=== PATIENT | male | born 1955 | race Caucasian/White ===

== ENCOUNTER → 2017-10-07 | Outpatient (CLI) | payer OTHER ==
[~2017-10-07] MED LIST: ACET-749 PO; ASPEC81 PO; FLV1 PO; FRC PO; MULT-506 PO; PHNRUNK PO; SIMV80TA2 PO; ZINC1CAP PO
--- NOTE | 2017-10-07 16:18 | DIAGNOSTIC IMAGING REPORT ---
CHEST 2 VIEWS ROUTINE CLINICAL HISTORY: Cough and rhonchi COMPARISON STUDY: No previous studies for comparison. FINDINGS: The cardiac and mediastinal contours are normal. There is no evidence of focal pulmonary consolidation. There is no evidence of failure. No pleural effusions are visualized.[ IMPRESSION: No active disease in the chest. Electronically signed by: Randolph Lui M.D. 10/07/2017 4:17 PM Dictated Date/Time: 10/07/2017 4:17 PM
== END | disposition home or self-care (01) ==
LOC: C.RAD1850 15:58
PROVIDERS: ATTEND Family Medicine
DX: R09.89 Other specified symptoms and signs involving the circulatory and respiratory systems (principal)

== ENCOUNTER 2020-05-28 08:21 | Observation (INO) ==
[2020-05-28] MEDS ORDERED: NiCARDipine HCL INJ 2.5 MG/ML 10 ML AMP ONE (08:50)
[2020-05-28] MEDS ORDERED: fentaNYL citrate 100 MCG/2 ML VIAL ONE ×2 (08:50→10:07)
[2020-05-28] MEDS ORDERED: HEPARIN (PORCINE) 1000 UNIT/ML 10 ML (CATH LAB USE ONLY) ONE ×2 (08:50→10:07)
[2020-05-28] MEDS ORDERED: MIDAZOLAM HCL 1 MG/ML 2ML VIAL ONE ×3 (08:51→10:48)
[2020-05-28] MEDS ORDERED: NITROGLYCERIN/D5W 100MCG/ML 20ML SYR ONE (08:51)
--- NOTE | 2020-05-28 08:57 | Pre Anesthesia Assessment ---
Date of Service May 28, 2020 Pre Sedation Assessment Cardiovascular RRR, no murmur, no edema Respiratory normal respiratory effort, lungs clear to auscultation Pre-Sedation Airway Assessment Smoking Status: Never smoker Hx Sleep Apnea: No Hx Difficult Intubation: No Short, Thick Neck: No Thyromental Distance: > or= 3.5 Finger Breadths Oral Cavity: + WNL Mallampati Class: III ASA: ASA3 Procedure Planning Contraindications for Sedation: none Current Medications Reviewed: Yes Notes The planned sedation has been discussed with the patient. Informed Consent was obtained. I have identified the patient, determined the appropriateness of sedation and have assessed the patient immediately prior to the procedure. All medicine(s) and interventions are by my order.
--- NOTE | 2020-05-28 09:05 | History & Physical Report ---
Date of Service May 28, 2020 Assessment & Plan (1) Chest pain due to CAD: Proceed with cardiac catheterization via right radial artery History of Present Illness Primary Care Provider: Mauri Pinon MD 64 female CAD with prior stents to LAD in 1999, 2000 and 2012, also with stent to RCA 2012. Also with HTN, HLD, GERD. Exercise stress echo 10/2019 - 55-60%, MPHR 94%, METS 13, normal echo response, inferolateral ST depressions. Followed by Dr. Montoya. Progressive exertional fatigue, dyspnea and chest pain limiting exercise. Pain not responsive to CCB, ranexa. Cath recommnended. Allergies Allergy/AdvReac Type Severity Reaction Status Date / Time No Known Drug Allergies Allergy Verified 04/02/20 13:32 Home Medications Home Medications Medication Instructions Recorded Confirmed Type sxtxwlwmnc-[id number] See Rx Instructions PO .COMPLEX 04/07/19 04/02/20 History 50 mg-325 mg-40 mg tablet tab folic acid 800 mcg tablet 1.6 mg PO DAILY tab 04/07/19 04/02/20 History multivitamin 1 tab PO DAILY 04/07/19 04/02/20 History zinc gluconate 50 mg tablet 50 mg PO DAILY tab 04/07/19 04/02/20 History aspirin 81 mg tablet 81 mg PO DAILY tab 05/12/19 04/02/20 History clopidogrel 75 mg tablet 75 mg PO DAILY #90 tab 05/12/19 04/02/20 History pantoprazole 40 mg tablet,delayed 40 mg PO QAM tab 05/12/19 04/02/20 History release rosuvastatin 10 mg tablet 10 mg PO .COMPLEX #15 tab 05/23/19 04/02/20 Rx potassium chloride 1 ea PO DAILY 06/15/19 04/02/20 History nitroglycerin 0.4 mg sublingual 0.4 mg SL .COMPLEX #25 tab 11/25/19 04/02/20 Rx tablet celecoxib 200 mg capsule 200 mg PO DAILY PRN #30 cap 03/05/20 04/02/20 Rx nitroglycerin 0.4 mg sublingual 0.4 mg SL Q5M PRN #25 tab 03/28/20 04/02/20 Rx tablet celecoxib 200 mg capsule 200 mg PO DAILY PRN #30 cap 04/02/20 04/02/20 Rx cyclobenzaprine 5 mg tablet 5 mg PO TID PRN #30 tab 05/14/20 Rx amlodipine 2.5 mg tablet 2.5 mg PO DAILY #90 tab 05/24/20 Rx ranolazine 500 mg tablet,extended 500 mg PO BID #180 tab 05/24/20 Rx release,12 hr Past Med/Surg History Medical History (Updated 05/02/20 @ 10:10 by Kalpesh Bee DO) BPH (benign prostatic hyperplasia) Chronic low back pain Coronary artery disease S/p stent to LAD (1999 and 2000). Last cath (2012) [facility] to RCA. Managed with DAPT + statin. No BB due to low HR and BP. GERD (gastroesophageal reflux disease) History of anesthesia reaction nauseous. HTN (hypertension) Hyperlipidemia Migraine headache Surgical History (Updated 05/02/20 @ 10:14 by Kalpesh Bee DO) H/O cardiac catheterization (~2012) S/P inguinal hernia repair Family History Father Coronary heart disease Heart disease Mother Osteoarthritis Crohn's disease Brother Coronary heart disease Hypertension Uncle Prostate cancer Denies family history of Ovarian cancer Myocardial infarction Breast cancer Lung cancer Colorectal cancer Social History Smoking Status: Never smoker Hx Alcohol Use: Yes Alcohol Intake Frequency Comment: 10? 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 [employer] Feels Safe at Home: Yes Dental Care, Regularly: Yes Physical Activity Frequency: 3-4 Times per Week Review of Systems All systems reviewed & are unremarkable except as noted in HPI & below Physical Exam Constitutional: WD/WN, vitals as above Eyes: PERRL, conjunctivae normal, anicteric sclerae Respiratory: normal respiratory effort, lungs clear to auscultation Cardiovascular: RRR, no murmur, no edema Gastrointestinal (Abdomen): normal bowel sounds, soft, nontender, no hepatosplenomegaly Skin: no rashes, warm and dry Psychiatric: A+Ox3, euthymic affect ASA Classification ASA ASA3
[2020-05-28] MEDS ORDERED: CLOPIDOGREL BISULFATE 300 MG TAB ONE (11:31)
--- NOTE | 2020-05-28 11:59 | Post Anesthesia Assessment ---
Date of Service May 28, 2020 Post Sedation Assessment Vital Signs Temp Pulse Resp BP Pulse Ox 05/28/20 11:55 55 L 20 109/68 96 05/28/20 11:40 52 L 20 133/45 L 97 05/28/20 08:33 98.2 F 61 20 134/95 98 Recovery Score Activity: Moves 4 extremities Respiration: Deep Breath/Cough Circulation: +/-20% PreAnes Value Consciousness: Fully Awake Oxygen Saturation: > 92% On Room Air Post Anesthesia Score: 10 Discharge Sedation Level of Care: Fast Track Phase II Post Sedation Plan On clinical assessment, the patient appears to have tolerated the sedation without complications. Patient is recovering as anticipated. Patient will continue to be monitored by nursing and may be discharged when sedation discharge criteria are met per below protocol. Upon Completions of procedure up to 15 minutes continue every 5 minute vital signs and the P.A.R. score; then discharge to a Phase I or Fast Track to Phase II per the following guidelines: * Discharge Patient to appropriate Phase II area if PAR is 8 or greater or return to pre- procedure baseline. The post - procedure orders will be as directed. * If PAR score is less than 8 or not return to pre-procedure baseline then pat ient will follow Phase I monitoring till PAR is reached for Phase II. The Phase I may be done in procedure room or may call to secure a Phase I area. * If naloxone or flumazenil are used for reversal, hold in Phase I for continued monitoring from when last reversal dose was given for a minimum of 60 minutes or longer pending the nurse and/or physician discretion of patient condition before discharge to Phase II. Please call the Sedation Physician to re-evaluate and complete post-note for discharge to Phase II area. Do NOT discharge from procedure sedation or Phase 1 until post- sedation evaluation note is complete by procedure /sedation MD Sedation Discharge Instructions to be given to the patient at discharge to home.
--- NOTE | 2020-05-28 12:15 | Cardiac Catheterization ---
ACC Data: Traveling Sales Representative Cardiac Status Clinical evaluation leading to the procedure CAD Presenation: Unstable angina Anginal Classification: CCS III Heart Failure: No Cardiogenic Shock within 24 Hours: No Cardiac Arrest within 24 Hours: No Imaging Studies Past 6 Months: Yes Stress Studies Past 6 Months: Yes Stress Echocardiogram: Yes - Indeterminant Diagnostic Physicians Name: Prabhjot Valentino MD Status: Elective Closure Device Percutaneous Entry Location: Radial Closure Device: Radial Band Recommendations: PCI without planned CABG PCI Indication: Unstable Angina Lesion Segment Name: mid RCA Culprit Artery: Yes Stenosis Prior to Rx (%): 95 Chronic Total Occlusion: No IVUS: No FFR: No Pre-Procedure GEORGI Flow: 2 Previously Treated Lesion: No Lesion Complexity: Non-High/Non-C Lesion Length (mm): 15 Thrombus Present: No Bifurcation Lesion: No Guidewire Across Lesion: Stenosis Post-Procedure (%): 0 Post-Procedure GEORGI Flow: 3 Devices(s) Deployed: Yes Yes Lesion #2 Segment Name: Mid LAD Culprit Artery: No Stenosis Prior to Rx (%): 100 Chronic Total Occlusion: Yes IVUS: No Pre-Procedure GEORGI Flow: 0 Previously Treated Lesion: No Lesion Complexity: High/C Lesion Length (mm): 25 Thrombus Present: No Bifurcation Lesion: Yes Guidewire Across Lesion: Yes Stenosis Post-Procedure (%): 0 Post-Procedure GEORGI Flow: 3 Devices(s) Deployed: Yes Intraprocedure Events Significant Disection: No Perforation: No Cardiac Cath Procedure Full Procedure Date May 28, 2020 Pre-Procedure Diagnosis Pre-Procedure Diagnosis: Angina AUC Score AUC Score: 7 Post-Procedure Diagnosis Post-Procedure Diagnosis: Severe CAD, Successful PCI and Normal Intracardiac Pressures Procedure(s) Performed Procedure(s) Performed: Coronary Angiography, Left Heart Cath and Drug Eluting Stent Traffic I Manager Prabhjot Valentino MD Satellite Communications Engineer(s) Genaro Estimated Blood Loss Estimated Blood Loss: 15 Medication(s) Medication(s): Clopidogrel, Fentanyl, Heparin, Lidocaine 1%, Nicardipine, Nitroglycerin and Versed Summary of Findings Indication: Accelerating angina, history of coronary artery disease post multiple stents to LAD, prior stent to RCA Access: 6 Fr slender right radial artery Catheters: Wentworth, JL 3.5, JR4 guide, EBU 3.5 guide Findings: LM -short, almost separate ostium, no significant disease LAD -medium caliber vessel, overlapping stents from proximal to mid LAD patent with 50% in-stent restenosis at takeoff of first septal, 100% chronic total occlusion just after distal aspect of prior stents and small second diagonal. Latemid and distal LAD fill slowly via left to left collaterals. Circumflex -large caliber vessel, 20% proximal, 40-50% mid stenosis after OM 2 extending into large OM 3. Large OM 2, OM 3 without significant disease. RCA -dominant, medium caliber vessel, widely patent earlymid RCA stent,, latemid with 95+% focal stenosis, distal RCA widely patent with GEORGI II flow. LVEDP -15 -- PCI of RCA-- Antithrombotic therapy: Heparin, clopidogrel Procedure: RCA cannulated with JR4 guide Surveillance Dual Rate Officer 50 wire passed across lesion into distal vessel Mid RCA lesion predilated with 2.5 compliant balloon Dilated lesion stented with 2.5 x 18 mm [place] drug-eluting stent Stent post-dilated with 2.75 noncompliant balloon IC vasodilators administered for spasm Post procedure GEORGI 3 flow, stent well expanded with minimal residual stenosis a nd no apparent cardiac complications. PCI of LAD PEST CONTROL WORKER Left main cannulated with EBU 3.5 guide Whisper wire placed into second diagonal With the aid and OTW balloon able to cross chronic total occlusion with pilot safety inspector 50 wire Distal wire intraluminal position confirmed via injection through Corsair catheter With the aid of a telescope support catheter mid LAD occlusion dilated with 2.0 balloon Mid LAD stented with 2.5 x 30 mm earl drug-eluting stent. Stent overlapped distal aspect of prior stent. Stent postdilated with 2.75 NC balloon IC vasodilators administered for spasm Post procedure GEORGI 3 flow, stents well expanded with minimal residual stenosis and no apparent cardiac complications. Arterial Closure: TR band Summary: 1. Severe multi-vessel coronary artery disease -95+% latemid RCA stenosis 50% proximal LAD in-stent restenosis, 100% chronic total occlusion of mid LAD just after prior stents 40 to 50% mid circumflex into OM 3 2. Normal intracardiac filling pressure 3. Successful PCI of mid RCA with single drug-eluting stent (2.5 x 18 mm Earl; postdilated with 2.75 NC). 4. Successful PCI of mid LAD chronic total occlusion with single drug-eluting stent overlapping distal aspect of prior stent (2.5 x 30 mm [place]; postdilated with 2.75 NC). Recommendations: To PCU for continued monitoring Reloaded with clopidogrel 300 mg in Traveling Sales Representative Continue dual-antiplatelet therapy for at least 6 months, likely indefinitely in the setting of multiple overlapping stents Aggressive ASCVD risk factor modification Consult cardiac Rehab Hemodynamics Rest Ao:: 115/71/91 Final Ao: 109/63/81 LV: 130/15 Recommendations Recommendations: PCI without planned CABG Specimens Specimens: None Radiation Exposure (mGy) 5207 Contrast (mls) 150 Fluids (cc crystalloids) Fluids (cc crystalloids): 235 Drains Drains: None Anesthesia Moderate Procedural Complication(s) None Disposition PCU I attest to the content of the Intraoperative Record and any orders documented therein. Any exceptions are noted below. [facility] Card Cath Procedure Codes Cardiac Catheterization Procedure 1: Cardiovascular Cath Procedures: 56927 Coronaries and LHC (+/-LV) Moderate Sedation Procedure 1: Sedation/Anesthesia: 33480 Mod Sedation by the same physician;Init15 Min Child Age 5 & Up Procedure 2: Sedation/Anesthesia: 80702 Mod Sedation by the same physician; Ea [id number] Minutes Stenting Procedure 1: Cardiovascular Stent Procedures: 99693 Perc transluminal revascularization of chronic total occlusion, Procedure 2: Cardiovascular Stent Procedures: 83541 Ea addl branch of a major coronary artery PG Care Time/CCT Total # of Minutes Spent Total Time Spent with Patient: Total time spent is greater than 50% in coordination of care (as documented) at patient's floor/unit and/or counseling patient:
[2020-05-28] MEDS ORDERED: ONDANSETRON INJ 2 MG/ML 2 ML VIAL IV PRN (12:19)
[2020-05-28] MEDS ORDERED: NITROGLYCERIN SL 0.4 MG/TAB TAB SL PRN (12:19)
[2020-05-28] MEDS ORDERED: PNEUMOCOCCAL ADMINISTRATION CHARGE ONE (12:22)
[2020-05-28] MEDS ORDERED: PNEUMOCOCCAL POLYSACCHARIDES 25 MCG/0.5 ML VIAL/SYR IM ONE (12:22)
[2020-05-28] MEDS ORDERED: SODIUM CHLORIDE 0.9% 1000ML 1,000 ML IV SCH (12:30)
[2020-05-28 13:36] LABS: Estimated Average Glucose 108 mg/dl; Hemoglobin A1C 5.4 % (4.5-5.6)
[2020-05-28 13:48] LABS: Chol HDL Ratio 5; Cholesterol 192 mg/dl (0-200); HDL Cholesterol 42 mg/dl; LDL Cholesterol Calculated 134 mg/dl; Triglycerides 78 mg/dl (0-150); VLDL Cholesterol 16 mg/dl
[2020-05-28] MEDS ORDERED: BUTALBITAL/ACETAMIN/CAFFEINE TAB PO PRN (17:05)
[2020-05-29 06:59] LABS: Basophils # (auto) 0.02 K/uL (0-0.2); Basophils % (auto) 0.2 %; Eosinophils # (auto) 0.19 K/uL (0-0.5); Eosinophils % (auto) 2.1 %; Hematocrit (blood only) 41.3 % (42-52); Hemoglobin 14.3 g/dL (14.0-18.0); Immature Granulocytes # (auto) 0.01 K/uL (0.00-0.02); Immature Granulocytes % (auto) 0.1 %; Lymphocytes % (auto) 21.5 %; Mean Corpuscular Hemoglobin 32.7 pg (25-34); Mean Corpuscular Hgb Conc 34.6 g/dL (32-36); Mean Corpuscular Volume 94.5 fL (80-100); Mean Platelet Volume 10.5 fL (7.4-10.4); Monocytes # (auto) 0.94 K/uL (0.11-0.59); Monocytes % (auto) 10.6 %; Neutrophils # (auto) 5.78 K/uL (1.4-6.5); Neutrophils % (auto) 65.5 %; Platelet Count 193 K/uL (130-400); RDW Coefficient of Variation 12.8 % (11.5-14.5); RDW Standard Deviation 44.1 fL (36.4-46.3); Red Blood Count 4.37 M/uL (4.7-6.1); White Blood Count 8.84 K/uL (4.8-10.8)
[2020-05-29 07:34] LABS: BUN Creatinine Ratio 12.7 (10-20); Calcium 8.6 mg/dl (8.5-10.1); Est GFR (African American) 82.1; Est GFR (Non-African American) 70.9; Potassium 4.3 mmol/L (3.5-5.1)
[2020-05-29] MEDS ORDERED: ROSUVASTATIN CALCIUM 10 MG TAB PO SCH (09:00)
[2020-05-29] MEDS ORDERED: FOLIC ACID 400 MCG TAB PO SCH (09:00)
[2020-05-29] MEDS ORDERED: CLOPIDOGREL BISULFATE 75 MG TAB PO SCH (09:00)
[2020-05-29] MEDS ORDERED: MULTIVITAMIN TAB PO SCH (09:00)
[2020-05-29] MEDS ORDERED: ASPIRIN 81 MG ECTAB PO SCH (09:00)
[2020-05-29] MEDS ORDERED: PANTOprazole 40 MG TAB PO SCH (09:00)
--- NOTE | 2020-05-29 11:07 | Discharge Summary ---
Date of Service May 29, 2020 Admission HPI Per Admitting Provider 64 male with CAD with prior stents to LAD in 1999, 2000 and 2012, also with stent to RCA 2012. Other medical problems include HTN, HLD, GERD. Exercise stress echo 10/2019 - 55-60%, MPHR 94%, METS 13, normal echo response, inferolateral ST depressions. Followed by Dr. Montoya. Progressive exertional fatigue, dyspnea and chest pain limiting exercise. Pain not responsive to CCB, ranexa. Cath recommnended. Specialty Data Cardiology Cardiac catheterization/PCI 05/28/2020: 1. Severe multi-vessel coronary artery disease -95+% latemid RCA stenosis 50% proximal LAD in-stent restenosis, 100% chronic total occlusion of mid LAD just after prior stents 40 to 50% mid circumflex into OM 3 2. Normal intracardiac filling pressure 3. Successful PCI of mid RCA with single drug-eluting stent (2.5 x 18 mm Jairon; postdilated with 2.75 NC). 4. Successful PCI of mid LAD chronic total occlusion with single drug-eluting stent overlapping distal aspect of prior stent (2.5 x 30 mm Jairon; postdilated with 2.75 NC). Discharge Data Consultations 05/28/20 12:22 Consult Cardiac Rehabilitation Routine Procedures Performed Operation Date: 05/28/20 09:30 Actual Procedures p Cath, Left with Cors and Vent - Raimundo Valentino MD s Cineradiography w/Routine Exam - Raimundo Valentino MD s Drug Eluting Stent SGl Vessel - Raimundo Valentino MD s Drug Eluting Stent each ADDTL Vessel - Raimundo Valentino MD Hospital Course (1) Coronary artery disease: Patient underwent cardiac catheterization via right radial artery. He was found to have severe multivessel coronary disease including a 95% mid RCA stenosis and a 100% chronic total occlusion of his mid LAD. Underwent PCI to RCA with placement of single drug-eluting stent followed by PCI of mid LAD chronic total occlusion with placement of another drug-eluting stent. Procedures were uncomplicated. Admitted to telemetry for observation post procedure. Had two short runs of nonsustained VT overnight (longest lasting 7 beats). Endorsed no additional chest pain. No apparent access site complications. Post procedure labs stable. LDL notable at 134. Patient discharged home on DAPT with aspirin, clopidogrel. Rosuvastatin increased from 10 mg every other day to 10 mg daily. Further statin titration and consideration of PCSK9 inhibitor per Dr. Montoya. Follow-up with Dr. Montoya scheduled for 06/07/2020. Discharge Instructions Home Medications [id number]-[id number] 50 mg-325 mg-40 mg tablet See Rx Instructions PO .COMPLEX tab 04/07/19 [History Confirmed 05/28/20] folic acid 800 mcg tablet 1.6 mg PO DAILY tab 04/07/19 [History Confirmed 05/28/20] multivitamin 1 tab PO DAILY 04/07/19 [History Confirmed 05/28/20] zinc gluconate 50 mg tablet 50 mg PO DAILY tab 04/07/19 [History Confirmed 05/28/20] aspirin 81 mg tablet 81 mg PO DAILY tab 05/12/19 [History Confirmed 05/28/20] clopidogrel 75 mg tablet 75 mg PO DAILY #90 tab 05/12/19 [History Confirmed 05/28/20] pantoprazole 40 mg tablet,delayed release 40 mg PO QAM tab 05/12/19 [History Confirmed 05/28/20] potassium chloride 1 ea PO DAILY 06/15/19 [History Confirmed 05/28/20] celecoxib 200 mg capsule 200 mg PO DAILY PRN #30 cap 03/05/20 [Rx Confirmed 05/28/20] nitroglycerin 0.4 mg sublingual tablet 0.4 mg SL Q5M PRN #25 tab 03/28/20 [Rx Confirmed 05/28/20] rosuvastatin 10 mg PO DAILY #30 tab 05/29/20 [Rx Confirmed 05/28/20] Coding Level of Care Code 00792 OBS Care - Discharge Diagnoses Coronary artery disease I25.10
--- NOTE | 2020-05-29 21:47 | Electrocardiogram Report ---
Test Reason : Blood Pressure : / mmHG Vent. Rate : 056 BPM Atrial Rate : 056 BPM P-R Int : 188 ms QRS Dur : 094 ms QT Int : 426 ms P-R-T Axes : 055 058 174 degrees QTc Int : 411 ms Poor data quality, interpretation may be adversely affected Sinus bradycardia Abnormal ECG No previous ECGs available Confirmed by Hong Vasquez ([id number]) on 05/29/2020 9:47:48 PM Referred By: Raimundo Valentino Confirmed By:Hong Vasquez
== END 2020-05-29 08:58 | disposition home or self-care (01) ==
LOC: 2S 08:21 → CC 08:21

== ENCOUNTER 2025-05-05 23:11 | Inpatient (IN) ==
[2025-05-05] MEDS: SODIUM CHLORIDE 0.9% 500 ML IV STA (23:33)
[2025-05-05] MEDS: OPTIRAY 320 125ml IV ONE (23:41)
[2025-05-05 23:46] LABS: Hematocrit (blood only) 46.5 % (42.0-52.0); Hemoglobin 16.0 g/dl (14.0-18.0); Immature Granulocytes # (auto) 0.01 K/uL (0.01-0.20); Immature Granulocytes % (auto) 0.1 %; Mean Corpuscular Hemoglobin 32.4 pg (25.0-34.0); Mean Corpuscular Volume 94.1 fL (80.0-100.0); Platelet Count 214 K/uL (130-400); RDW Standard Deviation 42.4 fL (36.4-46.3); Red Blood Count 4.94 M/uL (4.70-6.10); White Blood Count 6.99 K/ul (4.8-10.8)
--- NOTE | 2025-05-06 00:12 | Emergency Department Note ---
History of Present Illness General Chief complaint: Chest Pain Stated complaint: CHEST PAIN, SOB, ARRHYTHMIA Time Seen by Provider: 05/05/25 23:18 History of Present Illness This 69-year-old male with a history of coronary artery disease and hypertension presents the ER complaining of sudden onset of shortness of breath. Patient states he was walking up the steps to get a bed and suddenly felt short of breath. No history of heart failure, A-fib or COPD. Patient states he feels some mild burning in his chest but nothing major. Patient follows with Dr. Valentino and Dr. Montoya. Home Medications Medication Instructions Recorded Confirmed Type aspirin 81 mg tablet 81 mg PO QAM 05/12/19 05/06/25 History nitroglycerin 0.4 mg sublingual 0.4 mg sublingual Q5M PRN chest 03/28/20 05/06/25 Rx tablet pain #25 tabs acetaminophen 500 mg capsule 500 mg PO QID PRN Pain 09/17/21 05/06/25 History clopidogrel 75 mg tablet 75 mg PO QAM 09/17/21 05/06/25 History mecobalamin (vitamin B12) 1,000 1,000 mcg PO DAILY 10/07/22 05/06/25 History mcg chewable tablet alirocumab 75 mg/mL subcutaneous 150 mg subcut Q14D 03/14/24 05/06/25 History pen injector (Praluent Pen) pantoprazole 40 mg tablet,delayed 40 mg PO BID #60 tabs 04/12/24 05/06/25 Rx release methocarbamol 500 mg tablet 500 mg PO TID PRN muscle spasm 04/25/25 05/06/25 Rx #270 tabs kkpihbqtsd-rkblopwllmgdt-ryotduez 1 - 2 tab PO Q4H PRN HEADACHES 05/06/25 05/06/25 History 50 mg-325 mg-40 mg tablet Allergies Allergy/AdvReac Type Severity Reaction Status Date / Time atorvastatin [From Lipitor] AdvReac Intermediate Cramping Verified 05/06/25 00:01 of the Muscles pravastatin AdvReac Intermediate Cramping Verified 05/06/25 00:01 of the Muscles simvastatin [From Zocor] AdvReac Intermediate Cramping Verified 05/06/25 00:01 of the Muscles Jyshotm-JNX-PgU Reductase AdvReac Intermediate Cramping Verified 05/06/25 00:01 Inhibitor of the Muscles Past Med/Surg History Problem List (Updated 05/06/25 @ 00:17 by Julianna Rowe PA-C) Atrial fibrillation with rapid ventricular response (Acute) New onset atrial fibrillation (Acute) HTN (hypertension) h/o - no longer treated for Coronary artery disease (Chronic) S/p stent to LAD (1999 and 2000). Last cath (2012) ADAMS to RCA. Managed with DAPT + statin. No BB due to low HR and BP. Presence of drug-eluting stent in right coronary artery Status post insertion of drug-eluting stent into left anterior descending (LAD) artery Antiplatelet or antithrombotic long-term use Hyperlipidemia (Chronic) Statin myopathy Lumbar facet arthropathy Trochanteric bursitis of both hips Elevated glucose Degenerative disc disease, lumbar GERD (gastroesophageal reflux disease) (Chronic) BPH (benign prostatic hyperplasia) Migraine headache Medical History Statin intolerance Trochanteric bursitis of both hips Lumbar facet arthropathy HTN (hypertension) BPH (benign prostatic hyperplasia) DJD (degenerative joint disease), cervical DJD (degenerative joint disease), lumbar Hx of migraines GERD (gastroesophageal reflux disease) Osteoarthritis Chronic neck pain PONV (postoperative nausea and vomiting) CAD (coronary artery disease) Chronic low back pain Surgical History Hx of vasectomy History of esophagogastroduodenoscopy (EGD) History of colonoscopy H/O heart artery stent H/O cardiac catheterization (~2012) S/P inguinal hernia repair Family History Father Coronary heart disease Heart disease Mother Osteoarthritis Crohn's disease Brother Coronary heart disease Hypertension Diabetes Uncle Prostate cancer Brother Heart disease Myocardial infarction Denies family history of Ovarian cancer Breast cancer Lung cancer Colorectal cancer Social History Smoking Status: Never smoker Second Hand Exposure: No; Do You Dip or Chew Tobacco: No; Hx Alcohol Use: Yes Alcohol type: wine Alcohol Intake Frequency: 2-3 x/Week Hx Substance Use: No Preferred Language: Luxembourgish Communication Ability: Effective Visual Impairment: Diminished Hearing Ability: Normal 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: No marital status: Current Living Situation: Spouse 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 occupational 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 Feels Safe at Home: Yes Childhood Exposure to Second-Hand Smoke: Yes Diet: regular caffeine: No Dental Care, Regularly: Yes Physical Activity Frequency: 3-4 Times per Week Physical Activity Frequency Comment: weights and arobic Seatbelt Use: always Sunscreen Use: Yes Assistive Devices: None Review of Systems A total of 10 systems reviewed and were otherwise negative Physical Exam Vital Signs Vital Signs - 24 hr 05/05/25 23:13 05/05/25 23:25 05/05/25 23:38 Temperature 36.9 C Temperature Source Temporal Artery Scan Pulse Rate 92 H 125 H 79 Pulse Rate [Right Finger] Pulse Rhythm Irregular Respiratory Rate 19 Respiratory Effort / Characteristics Non-Labored Spontaneous Respiratory Depth Normal Blood Pressure 142/82 H Blood Pressure [Right Arm] Blood Pressure Mean 102 Blood Pressure Mean [Right Arm] Pulse Oximetry 97 97 Oxygen Delivery Method Room Air Room Air Sepsis Recent Fever Within 48 Hours No Sepsis New/Unexplained Change in Mental Status N/A Sepsis Action Taken by Nursing No Action Required 05/05/25 23:38 05/05/25 23:46 05/06/25 00:16 Temperature Temperature Source Pulse Rate 71 95 H Pulse Rate [Right Finger] 82 Pulse Rhythm Respiratory Rate 19 20 22 Respiratory Effort / Characteristics Respiratory Depth Blood Pressure 124/81 127/91 Blood Pressure [Right Arm] 104/75 Blood Pressure Mean 108 112 Blood Pressure Mean [Right Arm] 84 Pulse Oximetry 97 97 96 Oxygen Delivery Method Room Air Room Air Room Air Sepsis Recent Fever Within 48 Hours Sepsis New/Unexplained Change in Mental Status Sepsis Action Taken by Nursing VITALS: Vitals are noted on the nurse's note and reviewed by myself. Vital signs tachycardic. GENERAL: Pleasant gentleman, in no acute distress, nondiaphoretic, well- developed well-nourished. SKIN: Capillary reflex less than 2 seconds. HEENT: Normocephalic. PERRLA. EOMI. Nares patent. Mucous membranes moist. Neck is supple without nuchal rigidity. HEART: Tachycardic irregularly irregular LUNGS: Clear to auscultation bilaterally without wheezes, rales or rhonchi. No retractions or accessory muscle use. ABDOMEN: Positive bowel sounds x 4. Normal tympanic percussion. Soft, nontender, without masses or organomegaly. Monsalve sign negative. No guarding or rebound tenderness. no CVA tenderness MUSCULOSKELETAL: No gross musculoskeletal defects. NEURO: Patient was alert and oriented to person place and time. No focal neurological deficits. Course Administered Medications Discontinued Medications Diltiazem HCl (Diltiazem Hcl 5 Mg/Ml 5 Ml Vial) Confirm Administered Dose 25 mg IV .STK-MED ONE Stop: 05/05/25 23:23 Last Admin: 05/05/25 23:33 Dose: Not Given Documented By: CLAUDIA Diltiazem HCl (Diltiazem Hcl 5 Mg/Ml 5 Ml Vial) 10 mg IV NOW STA Stop: 05/05/25 23:23 Last Admin: 05/05/25 23:33 Dose: 10 mg Documented By: CLAUDIA Co-signed By: YOCASTA Sodium Chloride (Nss) 500 mls @ 999 mls/hr IV .Q31M STA Stop: 05/05/25 23:52 Last Infusion: 05/06/25 00:04 Dose: Infused Documented By: Admin: 05/05/25 23:33 Dose: 999 mls/hr Documented By: CLAUDIA Ioversol (Optiray 320 125ml) 120 ml IV ONCE ONE Stop: 05/05/25 23:41 Last Admin: 05/05/25 23:41 Dose: 120 ml Documented By: SILVIA Critical Care Time Critical Care Time: Yes Total Critical Care Time: 35 I have personally spent 35 minutes of critical care time in the direct management of this patient. This includes bedside care, interpretation of diagnostic studies, and testing, discussion with consultants, patient, and family members, and other required patient management activities. This 35 minutes is in excess of all separately billable procedures. Medical Decision Making Medical Records Attestation: I reviewed the patient's medical records. Home Medications Current Medication List: was personally reviewed by ok Laboratory Data Attestation: I reviewed the patient's lab results. 05/05/25 23:20 05/05/25 23:20 Lab Results 05/05/25 05/05/25 05/05/25 Range/Units 23:20 23:20 23:32 WBC 6.99 (4.8-10.8) K/ul RBC 4.94 (4.70-6.10) M/uL Hgb 16.0 (14.0-18.0) g/dl POC Hgb 16.3 (14.0-18.0) g/dl Hct 46.5 (42.0-52.0) % POC Hct 48 (42-52) % MCV 94.1 (80.0-100.0) fL MCH 32.4 (25.0-34.0) pg MCHC 34.4 (32.0-36.0) g/dL RDW Std Deviation 42.4 (36.4-46.3) fL RDW Coeff of Elidia 12.2 (11.5-14.5) % Plt Count 214 (130-400) K/uL MPV 10.3 (9.4-12.4) fL Immature Gran % (Auto) 0.1 % Neut % (Auto) 40.6 % Lymph % (Auto) 42.9 % [place] % (Auto) 11.4 % Eos % (Auto) 4.0 % Baso % (Auto) 1.0 % Neut # (Auto) 2.83 (1.40-6.50) K/uL Lymph # (Auto) 3.00 (1.20-3.40) K/uL [place] # (Auto) 0.80 H (0.11-0.59) K/uL Eos # (Auto) 0.28 (0.00-0.50) K/uL Baso # (Auto) 0.07 (0.00-0.20) K/uL Immature Gran # (Auto) 0.01 (0.01-0.20) K/uL PT 10.6 (9.0-12.0) Seconds INR 1.0 (0.9-1.1) APTT 27 (21-31) Seconds PTT Ratio 1.0 POC Sodium 138 (135-144) mmol/L Sodium 136 (136-145) mmol/L POC Potassium 4.5 (3.3-5.0) mmol/L Potassium 4.4 (3.5-5.1) mmol/L POC Chloride 102 (101-112) mmol/L Chloride 103 (98-107) mmol/L Carbon Dioxide 26 (21-32) mmol/L POC Total CO2 24 (24-31) mmol/L Anion Gap 7 (3-11) POC Anion Gap 17.0 (16-25) mmol/L POC BUN 17 (7-18) mg/dl BUN 16 (6-23) mg/dl Creatinine 1.09 (0.6-1.4) mg/dl POC Creatinine 1.2 (0.6-1.3) mg/dl Est Cr Clr Drug Dosing 62.1 ml/min eGFR 73.01 BUN/Creatinine Ratio 14.7 (10-20) Glucose 116 H (70-99(Fasting)) mg/dl POC Glucose (other) 120 H (70-99) mg/dl Calcium 9.6 (8.6-10.3) mg/dl POC Ioniz Calcium Gavin 1.20 (1.12-1.32) mmol/l Magnesium 1.8 (1.7-2.4) mg/dl Total Bilirubin 0.5 (0.2-1.0) mg/dl AST 21 (13-39) U/L ALT 18 (7-52) U/L Alkaline Phosphatase 55 (34-104) U/L Troponin I High Sens 28.7 H Cancelled (0-20) pg/ml B-Natriuretic Peptide 461 H (0-100) pg/ml Total Protein 7.6 (6.0-8.3) gm/dl Albumin 4.1 (3.4-5.0) gm/dl Globulin 3.5 (2.5-4.0) gm/dl Albumin/Globulin Ratio 1.2 (0.9-2) Lipase 19 (11-82) U/L TSH 4.976 H (0.300-4.500) uIu/ml Imaging Data Attestation: I personally reviewed and interpreted this imaging study as follows: Radiologist's Impression: Chest X-Ray 05/05/25 23:16 Exam(s): XR CXR 1 VIEW EXAM: XR Chest, 1 View CLINICAL HISTORY: Chest Pain, nonspecific. TECHNIQUE: Frontal view of the chest. COMPARISON: No relevant prior studies available. FINDINGS: Lungs: Unremarkable. No consolidation. Pleural space: Unremarkable. No pneumothorax. Heart: Cardiomegaly. Mediastinum: Unremarkable. Normal mediastinal contour. Bones/joints: There are degenerative changes of the spine. No acute fracture. IMPRESSION: Cardiomegaly. Electronically signed by: Rosaline Sinha MD 05/06/25 01:11 AM Chest CTA 05/05/25 23:22 EXAM: CT angio chest PE protocol CLINICAL HISTORY: Chest Pain, eval for PE TECHNIQUE: Contiguous axial images were obtained from the neck base through the upper abdomen following intravenous administration of iodinated contrast material. Angiographic images were processed, 3D MIP images were acquired for interpretation. If IV contrast material had not been administered, the likelihood of detecting abnormalities relevant to the patient's condition would have been substantially decreased. Coronal and sagittal 3-D MIPs were likewise performed and indicated to increase the sensitivity of detectin diffuse clinically relevant pathology. CT scan was performed according to ALARA (as low as reasonable achievable). COMPARISON: None. FINDINGS: Diffuse ground-glass hase are noted involving dependent portion of both lower lobes - suggest possibility of due to insufficient inspiration. Adequate contrast bolus without evidence of pulmonary embolism. The central airways are patent. The lungs are clear. No pleural effusion. The heart, aorta, and pulmonary arteries are of normal size and configuration. There are coronary artery and aortic atherosclerotic calcifications. No pericardial effusion is identified. The thyroid is unremarkable. No mediastinal, hilar, or axillary lymphadenopathy is noted. No suspicious lytic or sclerotic osseous lesions are identified. IMPRESSION: No evidence of pulmonary embolism . Diffuse ground-glass hase are noted involving dependent portion of both lower lobes Electronically signed by Alfonzo Fonseca 05-06-2025 12:52 AM MDM Narrative prior records/ancillary studies reviewed. Triage Nursing notes reviewed. Additional history obtained from the family. The patient's history was concerning for respiratory difficulties. Differential diagnosis: Etiologies such as infections, reactive airway disease, pneumonia, pneumothorax, COPD, CHF, cardiac ischemia, pulmonary embolism, musculoskeletal, gastrointestinal, as well as others were entertained. Physical examination: As above. ER treatment provided: An order was placed for continuous cardiac monitoring. The monitor shows a rate of 60-1 50 with a A-fib rhythm per my interpretation. Cardizem, IV fluids On reassessment the patient felt better. Diagnostic interpretation by me: The electrocardiogram was ordered for SOB. ECG: Irregularly irregular with ST depression in the inferior and lateral leads, rate of 117. Impression A-fib RVR with ST depression independently interpreted by myself. Per chart review the ST depression is similar to prior EKG ordered for lower heart rate EKG: Irregularly irregular with less ST depression in the inferior lateral leads, rate of 92. Impression A-fib with persistent ST depression unchanged from prior independently interpreted by myself The labs Independently Interpreted by myself revealed mildly elevated troponin repeat was ordered Elevated BNP No worrisome leukocytosis, stable H&H Imaging studies: Imaging was reviewed and read by radiology CHADS2 Score Sex (male 0, female 1): 0 Congestive HF (1): 0 Hypertension (1) :1 Age :1 Diabetes mellitus (1):0 Stroke/TIA/TE (2): 0 Score: 3 HEART SCORE: Hx: high/mod/low suspicion: 1 ECG: ST depression/nonspecific changes/normal: 1 Age: Greater than 65/45-64/less than 45: 2 Risk factors: (Hypertension, hyperlipidemia, diabetes, coronary disease, tobacco use, cocaine use): 2 Troponin: Greater than 2 times normal limits/1-2 times normal limits/normal: 1 Total: 7 Consultation: A consultation was placed with the hospitalist. The case was discussed and diagnostics were reviewed. The patient was evaluated in the ER for further treatment. This appears to be consistent with New onset A-fib. Patient started on heparin. His CHADS2 score was 3. Troponin was mildly elevated and repeat was ordered. He was feeling much better once his heart rate lowered down with the Cardizem. Medicine was consulted and case was discussed. Patient is agreeable to treatment plan of admission. By the evaluation outlined above emergent etiologies such as pulmonary embolism, reactive airway disease, pneumonia, pneumothorax, musculoskeletal, serious bacterial infections, as well as others were deemed relatively unlikely. The pt informed about the findings as listed above. All questions were answered and pleased with the treatment. The chart was completed utilizing [employer] Speech voice recognition software. Grammatical errors, random word insertions, pronoun errors, and incomplete sentences are an occassional consequence of this system due to software limitations, ambient noise, and hardware issues. Any formal questions or concerns about the content, text, or information contained within the body of this dictation should be directly addressed to the physician assistant project manager for clarification. Impression & Plan New onset atrial fibrillation, Atrial fibrillation with rapid ventricular response Discharge Plan Visit Data Chief Complaint: Chest Pain Stated Complaint: CHEST PAIN, SOB, ARRHYTHMIA ED Provider: Adebayo Duran ED Midlevel Provider: Julianna Rowe Discharge Problem: New onset atrial fibrillation, Atrial fibrillation with rapid ventricular response Patient Disposition: Admitted As Inpatient Condition: Good Forms Stand Alone Forms: CNS Response Prescriptions Prescriptions: No Action pantoprazole 40 mg tablet,delayed release (DR/EC) 40 mg PO BID Qty: 60 11RF mecobalamin (vitamin B12) 1,000 mcg tablet,chewable 1,000 mcg PO DAILY aspirin 81 mg tablet 81 mg PO QAM nitroglycerin 0.4 mg tablet, sublingual 0.4 mg SL Q5M PRN (Reason: chest pain) Qty: 25 1RF Rx Instructions: until response; do not exceed 3 doses per episode methocarbamol 500 mg tablet 500 mg PO TID PRN (Reason: muscle spasm) Qty: 270 1RF acetaminophen 500 mg Capsule 500 mg PO QID PRN (Reason: Pain) clopidogrel 75 mg tablet 75 mg PO QAM axnejsmcgt-rkvfmrvndcinr-abco 50-325-40 mg tablet 1 - 2 tab PO Q4H MDD 6 TABS/24 HOURS PRN (Reason: HEADACHES) Praluent Pen 75 mg/mL pen injector 150 mg subcut Q14D Referrals Referrals: Kalpesh Bee DO [Primary Care Provider] -
[2025-05-06 00:17] LABS: Alanine Aminotransferase 18.0 U/L (7-52); Albumin Globulin Ratio 1.2 (0.9-2); Alkaline Phosphatase 55.0 U/L (34-104); Anion Gap 7.0 (3-11); Bilirubin,Total 0.5 mg/dl (0.2-1.0); Blood Urea Nitrogen 16.0 mg/dl (6-23); Calcium 9.6 mg/dl (8.6-10.3); Carbon Dioxide 26.0 mmol/L (21-32); Chloride 103.0 mmol/L (98-107); Creatinine Clr Calc Pharmacy 62.1 ml/min; Globulin 3.5 gm/dl (2.5-4.0); Glucose 116.0 mg/dl (70-99(Fasting)); Lipase 19.0 U/L (11-82); Magnesium 1.8 mg/dl (1.7-2.4); Potassium 4.4 mmol/L (3.5-5.1); Sodium 136.0 mmol/L (136-145); Total Protein 7.6 gm/dl (6.0-8.3)
[2025-05-06 00:21] LABS: INR 1.0 (0.9-1.1); Partial Thromboplastin Time 27 Seconds (21-31); Prothrombin Time 10.6 Seconds (9.0-12.0)
[2025-05-06 00:26] LABS: Thyroid Stimulating Hormone 4.976 uIu/ml (0.300-4.500)
--- NOTE | 2025-05-06 00:52 | CT Scan Report ---
EXAM: CT angio chest PE protocol CLINICAL HISTORY: Chest Pain, eval for PE TECHNIQUE: Contiguous axial images were obtained from the neck base through the upper abdomen following intravenous administration of iodinated contrast material. Angiographic images were processed, 3D MIP images were acquired for interpretation. If IV contrast material had not been administered, the likelihood of detecting abnormalities relevant to the patient's condition would have been substantially decreased. Coronal and sagittal 3-D MIPs were likewise performed and indicated to increase the sensitivity of detectin diffuse clinically relevant pathology. CT scan was performed according to ALARA (as low as reasonable achievable). COMPARISON: None. FINDINGS: Diffuse ground-glass hase are noted involving dependent portion of both lower lobes - suggest possibility of due to insufficient inspiration. Adequate contrast bolus without evidence of pulmonary embolism. The central airways are patent. The lungs are clear. No pleural effusion. The heart, aorta, and pulmonary arteries are of normal size and configuration. There are coronary artery and aortic atherosclerotic calcifications. No pericardial effusion is identified. The thyroid is unremarkable. No mediastinal, hilar, or axillary lymphadenopathy is noted. No suspicious lytic or sclerotic osseous lesions are identified. IMPRESSION: No evidence of pulmonary embolism . Diffuse ground-glass hase are noted involving dependent portion of both lower lobes Electronically signed by Alfonzo Fonseca 05-06-2025 12:52 AM
--- NOTE | 2025-05-06 00:54 | Emergency Department Note ---
ED Visit Note I was consulted by the Advanced Practice Provider. I personally made/approved the management plan and take responsibility for the patient management. This includes the aspects of: -History/Physical -MDM
--- NOTE | 2025-05-06 01:12 | XRay Report ---
Exam(s): XR CXR 1 VIEW EXAM: XR Chest, 1 View CLINICAL HISTORY: Chest Pain, nonspecific. TECHNIQUE: Frontal view of the chest. COMPARISON: No relevant prior studies available. FINDINGS: Lungs: Unremarkable. No consolidation. Pleural space: Unremarkable. No pneumothorax. Heart: Cardiomegaly. Mediastinum: Unremarkable. Normal mediastinal contour. Bones/joints: There are degenerative changes of the spine. No acute fracture. IMPRESSION: Cardiomegaly. Electronically signed by: Rosaline Sinha MD 05/06/25 01:11 AM
[2025-05-06] MEDS: HEPARIN 25000 UNIT/500 ML D5W 25,000 UNITS/500 ML BAG IV SCH (01:47)
[2025-05-06] MEDS: HEPARIN SOD (PORCINE) 1000 UNIT/ML IV ONE (01:48)
[2025-05-06] MEDS: Heparin IV Adult Wt-Based Standard w/ INITIAL Bolus Protocol IV STA (01:50)
--- NOTE | 2025-05-06 02:02 | History & Physical Report ---
Date of Service May 06, 2025 Assessment & Plan (1) Atrial fibrillation with rapid ventricular response: (2) Coronary artery disease: (3) Presence of drug-eluting stent in right coronary artery: (4) Status post insertion of drug-eluting stent into left anterior descending (LAD) artery: (5) Hyperlipidemia: (6) Statin myopathy: Plan Patient is a 69-year-old male with past medical history of CAD (stent to LAD in 1999, 2000: repeat cath in 2012 with stent placement to RCA), hypertension, hyperlipidemia, statin intolerance, DDD, GERD, BPH, migraine, and osteoarthritis who was admitted for management of new onset a-fin w/ RVR. New onset a-fib w/ RVR Patient with palpitations and shortness of breath when climbing stairs likely related to A-fib with rates in the 120s at the time EKG done in the ED showing A-fib with RVR with rates of 112 Heart rate improved to 80slow 100s after single dose of Cardizem 10 mg IV, however, rates increased to [id number] when walking to the restroom, and does feel little winded at these times; no chest pain Troponin of ~28 with 2-hour repeat showing level of ~36; trend to peak TSH of 4.976, and Free T4 of 0.74; new dx unlikely to be related to thyroid disorder History of snoring and witnessed apneic episodes during sleep increase suspicion that patient may have underlying HANSEL, and in turn this may have led to this new diagnosis of A-fib; could consider sleep study after discharge Will admit patient to med/telemetry Will place order for metoprolol tartrate 25 mg twice daily to start tomorrow morning Patient currently on a heparin drip, although could consider changing to oral anticoagulant prior to discharge Will order TTE K+ goal of > 4, Mg goal of > 2 (magnesium replacement ordered) CAD On DAPT after most recent cath on 06/09/24 was done 2/2/ c/o episodes of chest discomfort lasting 20-30 minutes, and showed moderate non-obstructive CAD If changed to oral anticoagulant at time of discharge, could consider single antiplatelet therapy with oral anticoagulant to decrease risk of bleeding Will continue Clopidogrel; ASA held while on heparin gtt HTN Blood pressure of 127/70 at time of admission Not on any home medications HH diet HLD History of statin intolerance (statin myopathy) Will hold home Praluent while admitted Dispo: Med/Tele Diet: HH VTE ppx: Heparin gtt; can transition to PO anticoagulation prior to discharge Code Status: FULL History of Present Illness Chief Complaint: Shortness of Breath Primary Care Provider: Kalpesh Bee DO Patient is a 69-year-old male with past medical history of CAD (stent to LAD in 1999, 2000: repeat cath in 2012 with stent placement to RCA), hypertension, hyperlipidemia, statin intolerance, DDD, GERD, BPH, migraine, and osteoarthritis who came to the emergency department after experiencing sudden onset shortness of breath when he was walking upstairs. Patient was in his usual state of health earlier this morning and was able to run up 2 flights of stairs without feeling winded or having any symptoms. Then later in the day, he was having a few glasses of wine with his dinner and started to feel "strange" and was going up the stairs of his fall when he started feeling dyspneic and was experiencing palpitations. Denies having any chest pain, diaphoresis, weakness, lightheadedness, dizziness, or any other associated symptom at the time. His daughter, who is an ED nurse, noted his symptoms and checked his Apple Watch, which indicated that he was in A-fib with heart rate in the 120s. Patient has not had a similar experience in the past. He is very active. Of note, patient's states that he does snore and has episodes when is sleeping where he stops breathing and after a few seconds suddenly starts breathing again. He does not have a formal diagnosis of HANSEL and has not had a sleep study done in the past. ED Course: Given NSS 500mL bolus, given Cardizem 10mg IV x1, started on Heparin gtt Labs/Imaging: CBC without leukocytosis, hemoglobin of 16, platelets of 214. CMP without significant electrolyte abnormalities, potassium of 4.4, renal markers were in the grams range. Magnesium of 1.8. TSH of 4.976. Troponin of 28.7 seen with 2-hour repeat showing level of 36.9, BNP of 461. Chest x-ray without acute changes and chest CTA was negative for PE. Medical History: [Reviewed] Medications: [Reviewed] Surgical History: [Reviewed] Family history: [Reviewed] Allergies: [Reviewed] Social History: [Reviewed] Code Status: FULL Allergies Allergy/AdvReac Type Severity Reaction Status Date / Time atorvastatin [From Lipitor] AdvReac Intermediate Cramping Verified 05/06/25 00:01 of the Muscles pravastatin AdvReac Intermediate Cramping Verified 05/06/25 00:01 of the Muscles simvastatin [From Zocor] AdvReac Intermediate Cramping Verified 05/06/25 00:01 of the Muscles Milylxm-[id number]-RsI Reductase AdvReac Intermediate Cramping Verified 05/06/25 00:01 Inhibitor of the Muscles Home Medications Medication Instructions Recorded Confirmed Type aspirin 81 mg tablet 81 mg PO QAM 05/12/19 05/06/25 History nitroglycerin 0.4 mg sublingual 0.4 mg sublingual Q5M PRN chest 03/28/20 05/06/25 Rx tablet pain #25 tabs acetaminophen 500 mg capsule 500 mg PO QID PRN Pain 09/17/21 05/06/25 History clopidogrel 75 mg tablet 75 mg PO QAM 09/17/21 05/06/25 History mecobalamin (vitamin B12) 1,000 1,000 mcg PO DAILY 10/07/22 05/06/25 History mcg chewable tablet alirocumab 75 mg/mL subcutaneous 150 mg subcut Q14D 03/14/24 05/06/25 History pen injector (Praluent Pen) pantoprazole 40 mg tablet,delayed 40 mg PO BID #60 tabs 04/12/24 05/06/25 Rx release methocarbamol 500 mg tablet 500 mg PO TID PRN muscle spasm 04/25/25 05/06/25 Rx #270 tabs yqvzsrjepj-cwelpgbvvtypr-lmcizrvv 1 - 2 tab PO Q4H PRN HEADACHES 05/06/25 05/06/25 History 50 mg-325 mg-40 mg tablet Past Med/Surg History Problem List (Updated 05/06/25 @ 00:17 by Julianna Rowe PA-C) Atrial fibrillation with rapid ventricular response (Acute) New onset atrial fibrillation (Acute) HTN (hypertension) h/o - no longer treated for Coronary artery disease (Chronic) S/p stent to LAD (1999 and 2000). Last cath (2012) ADAMS to RCA. Managed with DAPT + statin. No BB due to low HR and BP. Presence of drug-eluting stent in right coronary artery Status post insertion of drug-eluting stent into left anterior descending (LAD) artery Antiplatelet or antithrombotic long-term use Hyperlipidemia (Chronic) Statin myopathy Lumbar facet arthropathy Trochanteric bursitis of both hips Elevated glucose Degenerative disc disease, lumbar GERD (gastroesophageal reflux disease) (Chronic) BPH (benign prostatic hyperplasia) Migraine headache Medical History Statin intolerance Trochanteric bursitis of both hips Lumbar facet arthropathy HTN (hypertension) BPH (benign prostatic hyperplasia) DJD (degenerative joint disease), cervical DJD (degenerative joint disease), lumbar Hx of migraines GERD (gastroesophageal reflux disease) Osteoarthritis Chronic neck pain PONV (postoperative nausea and vomiting) CAD (coronary artery disease) Chronic low back pain Surgical History Hx of vasectomy History of esophagogastroduodenoscopy (EGD) History of colonoscopy H/O heart artery stent H/O cardiac catheterization (~2012) S/P inguinal hernia repair Family History Father Coronary heart disease Heart disease Mother Osteoarthritis Crohn's disease Brother Coronary heart disease Hypertension Diabetes Uncle Prostate cancer Brother Heart disease Myocardial infarction Denies family history of Ovarian cancer Breast cancer Lung cancer Colorectal cancer Social History Smoking Status: Never smoker Second Hand Exposure: No; Do You Dip or Chew Tobacco: No; Hx Alcohol Use: Yes Alcohol type: wine Alcohol Intake Frequency: 2-3 x/Week Hx Substance Use: No Preferred Language: Kiswahili Communication Ability: Effective Visual Impairment: Diminished Hearing Ability: Normal Director Compensation Required: No Beliefs That Will Affect Care: None marital status: Current Living Situation: Spouse current occupational status: retired 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 Feels Safe at Home: Yes Safety Concerns: Feels Safe At This Time Childhood Exposure to Second-Hand Smoke: Yes Diet: regular caffeine: No Dental Care, Regularly: Yes Physical Activity Frequency: 3-4 Times per Week Physical Activity Frequency Comment: weights and arobic Seatbelt Use: always Sunscreen Use: Yes Assistive Devices: None Review of Systems Review of Systems: As per HPI Physical Exam Physical Exam: GENERAL: Awake alert and oriented in all spheres, afebrile, no acute distress HEAD: AT, NC EYES: EOM intact, ARIN THROAT: normal to visual inspection CHEST: symmetric chest expansions with respirations CARDIO: irregular rate, no r/m/g PULMONARY: CTA bilaterally, normal respiratory effort, no respiratory distress GI: soft, nontender, non distended EXTREMITIES: no swelling or calf tenderness in b/l LE Results & Data Results & Data Vital Signs (Past 12 Hours) Vital Signs Temp Pulse Pulse Resp BP BP Pulse Ox 05/06/25 01:00 89 20 127/70 97 05/06/25 00:45 87 20 122/92 96 05/06/25 00:16 95 H 22 127/91 96 05/05/25 23:46 71 20 124/81 97 05/05/25 23:38 82 19 104/75 97 05/05/25 23:38 79 97 05/05/25 23:25 125 H 05/05/25 23:13 36.9 C 92 H 19 142/82 H 97 O2 Del Method 05/06/25 01:00 Room Air 05/06/25 00:45 Room Air 05/06/25 00:16 Room Air 05/05/25 23:46 Room Air 05/05/25 23:38 Room Air 05/05/25 23:38 Room Air 05/05/25 23:25 05/05/25 23:13 Room Air Supervising Physician Co-Signing Physician Notes patient seen and examined, chart reviewed, case discussed with Dr. Manzo and I agree with the assessment and plan as above. New atrial fibrillation Irregularly irregular, no m/r//g Lungs CTA No edema or JVD Labs and images reviewed Assessment/Plan -Check 1D echo -Metoprolol 25mg po BID -DOAC in AM for anticoagulation -Patient's last stent 3 years ago - has been on DAPT. Can go down to ASA alone with addition of DOAC -Patient should have a sleep study. AF possibly secondary to undiagnosed HANSEL -REmainder as above Resident Activity Tracking Resident Involvement: Resident Care Provided Care Provided: Adult Hospital Medicine
[2025-05-06] MEDS ORDERED: ONDANSETRON INJ 2 MG/ML 2 ML VIAL IV PRN (02:34)
[2025-05-06] MEDS ORDERED: ACETAMINOPHEN 325 MG TAB PO PRN (02:34)
[2025-05-06] MEDS ORDERED: POLYETHYLENE (MIRALAX) 17 GM PACK PO PRN (02:34)
[2025-05-06] MEDS ORDERED: MELATONIN 3 MG TAB PO PRN (02:34)
[2025-05-06] MEDS: MAGNESIUM SULFATE / D5W 1 GM/100 ML BAG IV SCH (04:34)
--- NOTE | 2025-05-06 07:07 | Billing Data ---
Date of Service May 06, 2025 Coding Level of Care Code 30065 INT INP/OBS CARE
[2025-05-06 08:31] LABS: Hematocrit (blood only) 47.1 % (42.0-52.0); Hemoglobin 15.8 g/dl (14.0-18.0); Mean Corpuscular Hemoglobin 31.7 pg (25.0-34.0); Mean Corpuscular Volume 94.6 fL (80.0-100.0); Platelet Count 217 K/uL (130-400); RDW Standard Deviation 42.5 fL (36.4-46.3); Red Blood Count 4.98 M/uL (4.70-6.10); White Blood Count 7.02 K/ul (4.8-10.8)
[2025-05-06] MEDS: CLOPIDOGREL BISULFATE 75 MG TAB PO SCH (08:38)
[2025-05-06] MEDS: METOPROLOL TARTRATE 25 MG TAB PO SCH (08:38)
[2025-05-06 08:48] LABS: Anion Gap 7.0 (3-11); Blood Urea Nitrogen 17.0 mg/dl (6-23); Calcium 9.5 mg/dl (8.6-10.3); Carbon Dioxide 27.0 mmol/L (21-32); Chloride 104.0 mmol/L (98-107); Creatinine Clr Calc Pharmacy 71.2 ml/min; Glucose 132.0 mg/dl (70-99(Fasting)); Potassium 4.6 mmol/L (3.5-5.1); Sodium 138.0 mmol/L (136-145)
[2025-05-06] MEDS: MAGNESIUM SULFATE / D5W 1 GM/100 ML BAG IV ONE (08:48)
--- NOTE | 2025-05-06 08:49 | Hospitalist Progress Note ---
Date of Service May 06, 2025 Assessment & Plan (1) Atrial fibrillation with rapid ventricular response: (2) Coronary artery disease: (3) Presence of drug-eluting stent in right coronary artery: (4) Status post insertion of drug-eluting stent into left anterior descending (LAD) artery: (5) Hyperlipidemia: (6) Statin myopathy: Plan Patient is a 69-year-old male with past medical history of CAD (stent to LAD in 1999, 2000: repeat cath in 2012 with stent placement to RCA), hypertension, hyperlipidemia, statin intolerance, DDD, GERD, BPH, migraine, and osteoarthritis who was admitted for management of new onset a-fin w/ RVR. Notable patient had few glasses of wine prior to vent, ?holiday heart/alcohol induced New onset a-fib w/ RVR Patient with palpitations and shortness of breath when climbing stairs likely related to A-fib with rates in the 120s at the time, untreated HANSEL suspected as well Provided with cardizem 10mg IV, improvement in HR to 80-100s, but up to 130-150s when walking with some increased SOB w/ exertion but no CP reported Trop 28.7--> 36.9--> 37.7 and trending to peak TSH elevated to 4.9 but normal T4/T3 - repeat outpt rec'd Placed on metoprolol tartrate 25mg PO BID starting AM 8 as well as heparin gtt and ECHO ordered, cardiology consulted and remains on telemetry Discussed w/ Dr Zambrano from cardiology --> Changed metoprolol to SUCCINATE 25mg PO - first dose NOW - monitor on telemetry --> Heparin gtt discontinued, eliquis 5mg BID ordered (will given coupon, [facility] and can send ongoing rx there once completing initial month) --> Aspirin resumed for 05/07, plavix discontinued and will be on eliquis/aspirin 81mg at discharge --> Event monitor at [facility], follow up with Dr Montoya --> Overnight pulse ox, outpatient sleep study 1gm IV ordered for 1.8 to keep closer to 2. K stable 4.4 Continues on telemetry ECHO pending, no significant murmur on exam or pitting edema despite BNP and suspect 2nd to uncontrolled HR, appreciate cards recs/assistance [facility] AM 05/07 if HR controlled w/ outpatient sleep study and event monitor #CAD- hx CAD w/ ADAMS to LAD, RCA. On DAPT at baseline but given afib as above/cardiology consult planning to stop plavix and continue aspirin with eliquis. Pepcid once daily for GI proph/monitor for PPI if needed Eliquis started/plavix stopped and resumed aspirin 81mg daily Continue statin at [facility], outpatient follow up for above #HTN Blood pressure of 127/70 at time of admission, not on any agents at baseline Metoprolol added/adjusted for afib as above, monitor BP - currently elevated 123/90 but switching to succinate/monitoring- Further adjustments pending serial BPs while inpatient and further management outpatient if not at goal AHA diet Hx pre-DM last year, can add A1c to AM labs. ?lisinopril vs other if hx DM #HLDHistory of statin intolerance (statin myopathy) Will hold home Praluent while admitted can add lipid panel to AM labs/adj as needed/resume home statin at [facility] Suspected HANSEL- check overnight pulse ox, outpt sleep study DVT proph: heparin gtt switching to eliquis. Pepcid added for GI proph however appears fill for protonix BID in November and will resume/continue and monitor Dispo: continued inpatient stay, cards consult/echo pending. [facility] AM 810 Admission and Anticipated Discharge Date Admission Date: May 06, 2025 Supervising Physician Co-Signing Physician Notes The patient was not seen by me. The chart was reviewed. Case discussed with ARISTEO Fay. Agree with assessment and plan Subjective BRIDGE NOTE: ADMIT after midnight Eval this morning in ER after lunch. Reports feeling much better, no SOB. Just received 3 pills - discussed eliquis, metoprolol as well as pepcid for GI. Discussion undertaken regarding discussion w/ cards, who he reports was in this morning for a while. Plans to monitor on telemetry w switch to succinate and arrange outpatient monitor. He inquired about HANSEL/masks and if like the old big ones -- discussion undertaken and does appear mouth breather and potentially could use nasal mask but will check overnight pulse ox. Arranging for outpatient sleep study at [facility] following results. Possible relation to uncontrolled HTN as well as afib discussed and hopefully able to have improvement in both w/ treatment and meds as discussed. Plan for event monitor and follow up usual front line leader Dr Montoya. TO monitor for any bleeding - discussed NSAiDs - he does take celebrex on occasion for back pain -- cautious use/GI proph discussed and agreeable/added pepcid and will monitor for any issues. Occ wine use w/ at dinner - encouraged to avoid at this time. Questions/concerns addressed at this time. Physical Exam Physical Exam: General: WD/WN male sitting up in bed, NAD HEENT: head atraumatic, normocephalic, mmm,trachea midline Resp: even/unlabored, slightly reduced in the bases but no wheezing/rales, 95% on RA CV: irregularly irregular, rates ~80s, faint systolic murmur, no pitting edema, no calf tenderness, pulses present GI: +BS,soft/nt no grigsby MSK/Neuro: nonfocal, not confused Psych: AOx3, cooperative and pleasant during encounter Results & Data Results & Data Vital Signs (Past 12 Hours) Vital Signs Temp Pulse Pulse Resp BP BP Pulse Ox 05/06/25 08:39 98 H 16 123/90 94 05/06/25 08:37 117 H 05/06/25 04:00 114 H 19 110/78 94 05/06/25 03:30 124 H 21 137/92 93 05/06/25 02:34 05/06/25 02:03 137/93 05/06/25 02:02 97 H 20 137/93 96 05/06/25 01:00 89 20 127/70 97 05/06/25 00:45 87 20 122/92 96 05/06/25 00:16 95 H 22 127/91 96 05/05/25 23:46 71 20 124/81 97 05/05/25 23:38 82 19 104/75 97 05/05/25 23:38 79 97 05/05/25 23:25 125 H 05/05/25 23:13 36.9 C 92 H 19 142/82 H 97 Pulse Ox O2 Del Method O2 Del Method 05/06/25 08:39 Room Air 05/06/25 08:37 05/06/25 04:00 05/06/25 03:30 05/06/25 02:34 96 Room Air 05/06/25 02:03 05/06/25 02:02 Room Air 05/06/25 01:00 Room Air 05/06/25 00:45 Room Air 05/06/25 00:16 Room Air 05/05/25 23:46 Room Air 05/05/25 23:38 Room Air 05/05/25 23:38 Room Air 05/05/25 23:25 05/05/25 23:13 Room Air Laboratory Results 05/06/25 05/06/25 05/06/25 Range/Units 07:52 07:46 01:36 WBC 7.02 (4.8-10.8) K/ul RBC 4.98 (4.70-6.10) M/uL Hgb 15.8 (14.0-18.0) g/dl POC Hgb (14.0-18.0) g/dl Hct 47.1 (42.0-52.0) % POC Hct (42-52) % MCV 94.6 (80.0-100.0) fL MCH 31.7 (25.0-34.0) pg MCHC 33.5 (32.0-36.0) g/dL RDW Std Deviation 42.5 (36.4-46.3) fL RDW Coeff of Elidia 12.3 (11.5-14.5) % Plt Count 217 (130-400) K/uL MPV 10.5 (9.4-12.4) fL Immature Gran % (Auto) % Neut % (Auto) % Lymph % (Auto) % Ford % (Auto) % Eos % (Auto) % Baso % (Auto) % Neut # (Auto) (1.40-6.50) K/uL Lymph # (Auto) (1.20-3.40) K/uL Ford # (Auto) (0.11-0.59) K/uL Eos # (Auto) (0.00-0.50) K/uL Baso # (Auto) (0.00-0.20) K/uL Immature Gran # (Auto) (0.01-0.20) K/uL PT (9.0-12.0) Seconds INR (0.9-1.1) APTT (21-31) Seconds PTT Ratio Heparin Anti-Xa, LM Wt 0.78 (< 0.10) IU/ML POC Sodium (135-144) mmol/L Sodium 138 (136-145) mmol/L POC Potassium (3.3-5.0) mmol/L Potassium 4.6 (3.5-5.1) mmol/L POC Chloride (101-112) mmol/L Chloride 104 (98-107) mmol/L Carbon Dioxide 27 (21-32) mmol/L POC Total CO2 (24-31) mmol/L Anion Gap 7 (3-11) POC Anion Gap (16-25) mmol/L POC BUN (7-18) mg/dl BUN 17 (6-23) mg/dl Creatinine 0.95 (0.6-1.4) mg/dl POC Creatinine (0.6-1.3) mg/dl Est Cr Clr Drug Dosing 71.2 ml/min eGFR 86.11 BUN/Creatinine Ratio 17.9 (10-20) Glucose 132 H (70-99(Fasting)) mg/dl POC Glucose (other) (70-99) mg/dl Calcium 9.5 (8.6-10.3) mg/dl POC Ioniz Calcium Gavin (1.12-1.32) mmol/l Magnesium 2.3 (1.7-2.4) mg/dl Total Bilirubin (0.2-1.0) mg/dl AST (13-39) U/L ALT (7-52) U/L Alkaline Phosphatase (34-104) U/L Troponin I High Sens 37.7 H 36.9 H (0-20) pg/ml B-Natriuretic Peptide (0-100) pg/ml Total Protein (6.0-8.3) gm/dl Albumin (3.4-5.0) gm/dl Globulin (2.5-4.0) gm/dl Albumin/Globulin Ratio (0.9-2) Lipase (11-82) U/L TSH (0.300-4.500) uIu/ml Free T4 (0.61-1.60) ng/dl Free T3 (2.3-4.2) pg/ml 05/05/25 05/05/25 05/05/25 Range/Units 23:32 23:20 23:20 WBC 6.99 (4.8-10.8) K/ul RBC 4.94 (4.70-6.10) M/uL Hgb 16.0 (14.0-18.0) g/dl POC Hgb 16.3 (14.0-18.0) g/dl Hct 46.5 (42.0-52.0) % POC Hct 48 (42-52) % MCV 94.1 (80.0-100.0) fL MCH 32.4 (25.0-34.0) pg MCHC 34.4 (32.0-36.0) g/dL RDW Std Deviation 42.4 (36.4-46.3) fL RDW Coeff of Elidia 12.2 (11.5-14.5) % Plt Count 214 (130-400) K/uL MPV 10.3 (9.4-12.4) fL Immature Gran % (Auto) 0.1 % Neut % (Auto) 40.6 % Lymph % (Auto) 42.9 % Ford % (Auto) 11.4 % Eos % (Auto) 4.0 % Baso % (Auto) 1.0 % Neut # (Auto) 2.83 (1.40-6.50) K/uL Lymph # (Auto) 3.00 (1.20-3.40) K/uL Ford # (Auto) 0.80 H (0.11-0.59) K/uL Eos # (Auto) 0.28 (0.00-0.50) K/uL Baso # (Auto) 0.07 (0.00-0.20) K/uL Immature Gran # (Auto) 0.01 (0.01-0.20) K/uL PT 10.6 (9.0-12.0) Seconds INR 1.0 (0.9-1.1) APTT 27 (21-31) Seconds PTT Ratio 1.0 Heparin Anti-Xa, LM Wt (< 0.10) IU/ML POC Sodium 138 (135-144) mmol/L Sodium 136 (136-145) mmol/L POC Potassium 4.5 (3.3-5.0) mmol/L Potassium 4.4 (3.5-5.1) mmol/L POC Chloride 102 (101-112) mmol/L Chloride 103 (98-107) mmol/L Carbon Dioxide 26 (21-32) mmol/L POC Total CO2 24 (24-31) mmol/L Anion Gap 7 (3-11) POC Anion Gap 17.0 (16-25) mmol/L POC BUN 17 (7-18) mg/dl BUN 16 (6-23) mg/dl Creatinine 1.09 (0.6-1.4) mg/dl POC Creatinine 1.2 (0.6-1.3) mg/dl Est Cr Clr Drug Dosing 62.1 ml/min eGFR 73.01 BUN/Creatinine Ratio 14.7 (10-20) Glucose 116 H (70-99(Fasting)) mg/dl POC Glucose (other) 120 H (70-99) mg/dl Calcium 9.6 (8.6-10.3) mg/dl POC Ioniz Calcium Gavin 1.20 (1.12-1.32) mmol/l Magnesium 1.8 (1.7-2.4) mg/dl Total Bilirubin 0.5 (0.2-1.0) mg/dl AST 21 (13-39) U/L ALT 18 (7-52) U/L Alkaline Phosphatase 55 (34-104) U/L Troponin I High Sens Cancelled 28.7 H (0-20) pg/ml B-Natriuretic Peptide 461 H (0-100) pg/ml Total Protein 7.6 (6.0-8.3) gm/dl Albumin 4.1 (3.4-5.0) gm/dl Globulin 3.5 (2.5-4.0) gm/dl Albumin/Globulin Ratio 1.2 (0.9-2) Lipase 19 (11-82) U/L TSH 4.976 H (0.300-4.500) uIu/ml Free T4 0.74 (0.61-1.60) ng/dl Free T3 3.39 (2.3-4.2) pg/ml PG Care Time/CCT Total # of Minutes Spent Total Time Spent with Patient: Total time spent is greater than 50% in coordination of care (as documented) at patient's floor/unit and/or counseling patient: Coding Level of Care Code None Diagnoses Atrial fibrillation with rapid ventricular response I48.91 Coronary artery disease I25.10 Presence of drug-eluting stent in right coronary artery Z95.5 Status post insertion of drug-eluting stent into left anterior descending (LAD) artery Z95.5 Hyperlipidemia E78.5 Statin myopathy G72.0; T46.6X5A
[2025-05-06] MEDS ORDERED: ASPIRIN 81 MG ECTAB PO SCH (09:00)
[2025-05-06 09:15] LABS: Magnesium 2.3 mg/dl (1.7-2.4)
[2025-05-06 09:37] LABS: ANTI-Xa, LMWH(Low Molecular Wt 0.78 IU/ML (< 0.10)
--- NOTE | 2025-05-06 10:10 | Cardiology Consultation ---
Date of Consultation May 06, 2025 Assessment & Plan (1) Atrial fibrillation with rapid ventricular response: (2) New onset atrial fibrillation: (3) Coronary artery disease: (4) Presence of drug-eluting stent in right coronary artery: (5) Status post insertion of drug-eluting stent into left anterior descending (LAD) artery: (6) Hyperlipidemia: statin intolerant; he is on PCSK9 inhibitor with Praluent. Plan Would add low-dose beta-shirley metoprolol 25 mg daily to see if we can better control his heart rate. Would get him started on Eliquis 5 mg twice daily. You can stop the IV heparin. If he tolerates the beta-shirley overnight I suspect he will be able to be discharged to home in the morning. I will review his echo later today. In addition he may also have obstructive sleep apnea and I would asked that he follow-up with his PCP or Dr. Boswell regarding getting this testing done. In addition at the time of discharge I would try to get him scheduled for an event monitor which can be done through Dr. Shaw's office. He should follow-up with Dr. Macario next within the next month or so. History of Present Illness Reason for Consultation: A-fib with RVR Attending Physician: Gilbert Giang MD History of Present Illness Mr. Urrutia is a very nice 69-year-old retired gentleman who is known to Dr. Macario for many years. He has a prior history of coronary artery disease and in fact underwent his last catheterization in May 2024 which shows a patent old stent with mild to moderate in-stent restenosis. He has no new disease however. Yesterday he noted sudden onset of shortness of breath doing usual activities and when he presented to the emergency room he was noted to have A- fib with rapid ventricular response. His heart rate with A-fib is ranging anywhere between 80 and 110 bpm. His labs were reviewed his troponin was negative. He does not have chest discomfort or shortness of breath. He underwent a 2D echo earlier today which I will review. Currently he was seen in the emergency room and is in no apparent distress. He is getting IV heparin currently. We discussed the nature of atrial fibrillation with heart rate control and eventually rhythm control as well as anticoagulation. He has been on aspirin and Plavix for his CAD and history of remote stent. Allergies Allergy/AdvReac Type Severity Reaction Status Date / Time atorvastatin [From Lipitor] AdvReac Intermediate Cramping Verified 05/06/25 00:01 of the Muscles pravastatin AdvReac Intermediate Cramping Verified 05/06/25 00:01 of the Muscles simvastatin [From Zocor] AdvReac Intermediate Cramping Verified 05/06/25 00:01 of the Muscles Zqmpyhv-[id number]-VmF Reductase AdvReac Intermediate Cramping Verified 05/06/25 00:01 Inhibitor of the Muscles Home Medications Medication Instructions Recorded Confirmed Type aspirin 81 mg tablet 81 mg PO QAM 05/12/19 05/06/25 History nitroglycerin 0.4 mg sublingual 0.4 mg sublingual Q5M PRN chest 03/28/20 05/06/25 Rx tablet pain #25 tabs acetaminophen 500 mg capsule 500 mg PO QID PRN Pain 09/17/21 05/06/25 History clopidogrel 75 mg tablet 75 mg PO QAM 09/17/21 05/06/25 History mecobalamin (vitamin B12) 1,000 1,000 mcg PO DAILY 10/07/22 05/06/25 History mcg chewable tablet alirocumab 75 mg/mL subcutaneous 150 mg subcut Q14D 03/14/24 05/06/25 History pen injector (Praluent Pen) pantoprazole 40 mg tablet,delayed 40 mg PO BID #60 tabs 04/12/24 05/06/25 Rx release methocarbamol 500 mg tablet 500 mg PO TID PRN muscle spasm 04/25/25 05/06/25 Rx #270 tabs apixaban 5 mg tablet (Eliquis) 5 mg PO BID #60 tabs 05/06/25 Rx mciwyzbojy-wkpbunaitlrkb-kwrqkhzb 1 - 2 tab PO Q4H PRN HEADACHES 05/06/2506/22 History 50 mg-325 mg-40 mg tablet famotidine 20 mg tablet 20 mg PO QAM #30 tabs 05/06/25 Rx Patient History Medical History Statin intolerance Trochanteric bursitis of both hips Lumbar facet arthropathy HTN (hypertension) BPH (benign prostatic hyperplasia) DJD (degenerative joint disease), cervical cannot turn left to right as previous, needs to have neck support during procedure or will get a migraine DJD (degenerative joint disease), lumbar Hx of migraines GERD (gastroesophageal reflux disease) Osteoarthritis Chronic neck pain PONV (postoperative nausea and vomiting) CAD (coronary artery disease) follows with dr. macario - last seen ~ 12/01/22 Chronic low back pain Surgical History Hx of vasectomy History of esophagogastroduodenoscopy (EGD) History of colonoscopy 09/2019 2 repeat 5 years H/O heart artery stent No [place], x 5 (most recent 04/2020) Follows with Dr. Macario (11/2022) H/O cardiac catheterization (~2012) No [place], multi caths -- c and [place] -- most recent 04/2020 at [place] with stent placement - follows with Dr. Macario (11/2022) S/P inguinal hernia repair Family History Father Coronary heart disease Heart disease Mother Osteoarthritis Crohn's disease Brother Coronary heart disease Hypertension Diabetes Uncle Prostate cancer Brother Heart disease Myocardial infarction Denies family history of Ovarian cancer Breast cancer Lung cancer Colorectal cancer Social History Smoking Status: Never smoker Second Hand Exposure: No; Do You Dip or Chew Tobacco: No; Hx Alcohol Use: Yes Alcohol type: wine Alcohol Intake Frequency: 2-3 x/Week Hx Substance Use: No Preferred Language: Mauritian Communication Ability: Effective Visual Impairment: Diminished Hearing Ability: Normal Hydraulic Repairer Required: No Beliefs That Will Affect Care: None marital status: Current Living Situation: Spouse current occupational status: retired 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 Patient was seen with his Respiratory: lungs are clear to auscultation bilaterally Cardiovascular: heart rate is irregular no murmurs were appreciated There was no edema Results & Data Vital Signs (Past 12 Hours) Vital Signs Temp Pulse Pulse Resp BP BP Pulse Ox 05/06/25 08:39 98 H 16 123/90 94 05/06/25 08:37 117 H 05/06/25 04:00 114 H 19 110/78 94 05/06/25 03:30 124 H 21 137/92 93 05/06/25 02:34 05/06/25 02:03 137/93 05/06/25 02:02 97 H 20 137/93 96 05/06/25 01:00 89 20 127/70 97 05/06/25 00:45 87 20 122/92 96 05/06/25 00:16 95 H 22 127/91 96 05/05/25 23:46 71 20 124/81 97 05/05/25 23:38 82 19 104/75 97 05/05/25 23:38 79 97 05/05/25 23:25 125 H 05/05/25 23:13 36.9 C 92 H 19 142/82 H 97 Pulse Ox O2 Del Method O2 Del Method 05/06/25 08:39 Room Air 05/06/25 08:37 05/06/25 04:00 05/06/25 03:30 05/06/25 02:34 96 Room Air 05/06/25 02:03 05/06/25 02:02 Room Air 05/06/25 01:00 Room Air 05/06/25 00:45 Room Air 05/06/25 00:16 Room Air 05/05/25 23:46 Room Air 05/05/25 23:38 Room Air 05/05/25 23:38 Room Air 05/05/25 23:25 05/05/25 23:13 Room Air Laboratory Results Abnormal lab results 05/05/25 05/05/25 05/06/25 Range/Units 23:20 23:32 01:36 [place]verse # (Auto) 0.80 H (0.11-0.59) K/uL Glucose 116 H (70-99(Fasting)) mg/dl POC Glucose (other) 120 H (70-99) mg/dl Troponin I High Sens 28.7 H 36.9 H (0-20) pg/ml B-Natriuretic Peptide 461 H (0-100) pg/ml TSH 4.976 H (0.300-4.500) uIu/ml 05/06/25 Range/Units 07:46 [place]verse # (Auto) (0.11-0.59) K/uL Glucose 132 H (70-99(Fasting)) mg/dl POC Glucose (other) (70-99) mg/dl Troponin I High Sens 37.7 H (0-20) pg/ml B-Natriuretic Peptide (0-100) pg/ml TSH (0.300-4.500) uIu/ml Medications Administered Current Inpatient Medications Acetaminophen (Acetaminophen 325 Mg Tab) 650 mg PO Q4H PRN PRN Reason: Pain or Fever Stop: 06/05/25 02:33 Clopidogrel Bisulfate (Clopidogrel Bisulfate 75 Mg Tab) 75 mg PO QAM [facility] Stop: 06/05/25 08:59 Last Admin: 05/06/25 08:38 Dose: 75 mg Heparin Sodium/Dextrose (Heparin 17312 Unit/500 Ml D5w) 25,000 units in 500 mls @ 25 mls/hr IV .Q20H [facility]; Protocol Stop: 06/05/25 01:29 Last Titration: 05/06/25 09:50 Dose: 1,200 units/hr, 24 mls/hr Magnesium Sulfate/Dextrose (Magnesium Sulfate / D5w) 1 gm in 100 mls @ 50 mls/hr IV ONE ONE Stop: 05/06/25 10:42 Last Admin: 05/06/25 08:48 Dose: 50 mls/hr Melatonin (Melatonin 3 Mg Tab) 3 mg PO HS PRN PRN Reason: Sleep Stop: 06/05/25 02:33 Metoprolol Tartrate (Metoprolol Tartrate 25 Mg Tab) 25 mg PO BID [facility] Stop: 06/05/25 08:59 Last Admin: 05/06/25 08:38 Dose: 25 mg Ondansetron HCl (Ondansetron Inj 2 Mg/Ml 2 Ml Vial) 4 mg IV Q6H PRN PRN Reason: Nausea Stop: 06/05/25 02:33 Polyethylene Glycol (Polyethylene (Miralax) 17 Gm Pack) 17 gm PO DAILY PRN PRN Reason: Constipation Stop: 06/05/25 02:33 ECG Additional Comments: intermittent A-fib with RVR there were baseline ST-T wave changes which are not new
[2025-05-06] MEDS: FAMOTIDINE 20 MG TAB PO SCH (12:26)
[2025-05-06] MEDS: APIXABAN 5 MG TABLET PO ONE (12:26)
[2025-05-06] MEDS: METOPROLOL SUCC 25MG EXT REL TAB PO ONE (12:27)
[2025-05-06 16:16] LABS: ANTI-Xa, UFH(UnfractionatedHep 0.15 IU/ml (0.3-0.7)
[2025-05-06 17:13] VITALS: RESP 18
[2025-05-06] MEDS: APIXABAN 5 MG TABLET PO SCH (20:33)
[2025-05-07 07:17] LABS: Hematocrit (blood only) 48.0 % (42.0-52.0); Hemoglobin 16.4 g/dl (14.0-18.0); Mean Corpuscular Hemoglobin 32.2 pg (25.0-34.0); Mean Corpuscular Volume 94.3 fL (80.0-100.0); Platelet Count 192 K/uL (130-400); RDW Standard Deviation 42.2 fL (36.4-46.3); Red Blood Count 5.09 M/uL (4.70-6.10); White Blood Count 7.67 K/ul (4.8-10.8)
--- NOTE | 2025-05-07 07:37 | Hospitalist Progress Note ---
Date of Service May 07, 2025 Assessment & Plan (1) Atrial fibrillation with rapid ventricular response: (2) Coronary artery disease: (3) Presence of drug-eluting stent in right coronary artery: (4) Status post insertion of drug-eluting stent into left anterior descending (LAD) artery: (5) Hyperlipidemia: (6) Statin myopathy: Plan Patient is a 69-year-old male with past medical history of CAD (stent to LAD in 1999, 2000: repeat cath in 2012 with stent placement to RCA), hypertension, hyperlipidemia, statin intolerance, DDD, GERD, BPH, migraine, and osteoarthritis who was admitted for management of new onset a-fin w/ RVR. Notable patient had few glasses of wine prior to vent, ?holiday heart/alcohol induced New onset a-fib w/ RVR Patient with palpitations and shortness of breath when climbing stairs likely related to A-fib with rates in the 120s at the time, untreated HANSEL suspected as well Provided with cardizem 10mg IV, improvement in HR to 80-100s, but up to 130-150s when walking with some increased SOB w/ exertion but no CP reported Trop 28.7--> 36.9--> 37.7 and trending to peak TSH elevated to 4.9 but normal T4/T3 - repeat outpt rec'd Placed on metoprolol tartrate 25mg PO BID starting AM 05/06 as well as heparin gtt and ECHO ordered, cardiology consulted and remains on telemetry Discussed w/ Dr Zambrano from cardiology --> Changed metoprolol to SUCCINATE 25mg PO - first dose NOW - monitor on telemetry --> Heparin gtt discontinued, eliquis 5mg BID ordered (will given coupon, [facility] and can send ongoing rx there once completing initial month) --> Aspirin resumed for 05/07, plavix discontinued and will be on eliquis/aspirin 81mg at discharge --> Event monitor at [facility], follow up with Dr Montoya --> Overnight pulse ox, outpatient sleep study 1gm IV ordered for 1.8 to keep closer to 2. K stable 4.4 Continues on telemetry ECHO pending, no significant murmur on exam or pitting edema despite BNP and suspect 2nd to uncontrolled HR, appreciate cards recs/assistance [facility] AM 05/07 if HR controlled w/ outpatient sleep study and event monitor 05/07 - episode reported vtach on monitor by nursing last evening, ECHO w/ acceptable EF 50-55%, no significant valvular disease. Does note diastolic dysfunction grade II - overnight pulse ox w/o significant drop but suspect needs official sleep study which can be arranged outpatient. Metoprolol succinate 25mg continued and monitoring telemetry but if rates acceptable w/ ambulation can plan for dc w/ metoprolol/eliquis, Dr Montoya follow up w/ event monitor #CAD- hx CAD w/ [facility] to LAD, RCA. On DAPT at baseline but given afib as above/cardiology consult planning to stop plavix and continue aspirin with eliquis. Pepcid once daily for GI proph/monitor for PPI if needed Eliquis started/plavix stopped and resumed aspirin 81mg daily Continue statin at [facility], outpatient follow up for above #HTN Blood pressure of 127/70 at time of admission, not on any agents at baseline Metoprolol added/adjusted for afib as above, monitor BP - currently elevated 123/90 but switching to succinate/monitoring- Further adjustments pending serial BPs while inpatient and further management outpatient if not at goal AHA diet Hx pre-DM last year, can add A1c to AM labs. ?lisinopril vs other if hx DM #HLDHistory of statin intolerance (statin myopathy) Will hold home Praluent while admitted can add lipid panel to AM labs/adj as needed/resume home statin at [facility] Suspected HANSEL- check overnight pulse ox, outpt sleep study DVT proph: heparin gtt switching to eliquis. Pepcid added for GI proph however appears fill for protonix BID in November and will resume/continue and monitor Dispo: continued inpatient stay, cards consult/echo pending. [facility] AM 05/07 Admission and Anticipated Discharge Date Admission Date: May 06, 2025 Results & Data Results & Data Vital Signs (Past 12 Hours) Vital Signs Temp Pulse Pulse Pulse Pulse Resp BP 05/07/25 03:50 36.6 C 83 18 117/73 05/07/25 03:06 61 05/06/25 23:21 36.5 C 68 18 98/57 L 05/06/25 22:32 05/06/25 22:25 74 05/06/25 21:54 107 H Pulse Ox Pulse Ox O2 Del Method O2 Del Method 05/07/25 03:50 95 Room Air 05/07/25 03:06 95 Room Air 08/09/25 23:21 97 Room Air 05/06/25 22:32 Room Air 05/06/25 22:25 96 Room Air 05/06/25 21:54 PG Care Time/CCT Total # of Minutes Spent Total Time Spent with Patient: Total time spent is greater than 50% in coordination of care (as documented) at patient's floor/unit and/or counseling patient: Coding Diagnoses Atrial fibrillation with rapid ventricular response I48.91 Coronary artery disease I25.10 Presence of drug-eluting stent in right coronary artery Z95.5 Status post insertion of drug-eluting stent into left anterior descending (LAD) artery Z95.5 Hyperlipidemia E78.5 Statin myopathy G72.0; T46.6X5A
[2025-05-07 07:44] LABS: Anion Gap 4.0 (3-11); Blood Urea Nitrogen 20.0 mg/dl (6-23); Calcium 9.2 mg/dl (8.6-10.3); Carbon Dioxide 29.0 mmol/L (21-32); Chloride 104.0 mmol/L (98-107); Cholesterol 118.0 mg/dl (0-200); Creatinine Clr Calc Pharmacy 66.2 ml/min; Glucose 118.0 mg/dl (70-99(Fasting)); HDL Cholesterol 47.0 mg/dl; Magnesium 2.1 mg/dl (1.7-2.4); Potassium 5.2 mmol/L (3.5-5.1); Sodium 137.0 mmol/L (136-145); Triglycerides 175.0 mg/dl (0-150)
[2025-05-07 07:55] VITALS: TEMP 97.3; O2SAT 98
[2025-05-07 08:47] LABS: Hemoglobin A1C 6.0 % (4.5-5.6)
--- NOTE | 2025-05-07 09:04 | Discharge Summary ---
Discharge Summary Date of Service May 07, 2025 Principal Dx & Hospital Course #1 = Principal Diagnosis (1) Atrial fibrillation with rapid ventricular response: (2) Coronary artery disease: (3) Presence of drug-eluting stent in right coronary artery: (4) Status post insertion of drug-eluting stent into left anterior descending (LAD) artery: (5) Hyperlipidemia: (6) Statin myopathy: Plan 69-year-old male with past medical history of CAD (stent to LAD in 1999, 2000: repeat cath in 2012 with stent placement to RCA), hypertension, hyperlipidemia, statin intolerance, DDD, GERD, BPH, migraine, and osteoarthritis who was adm itted for management of new onset a-fin w/ RVR with reports of feeling "strange" doing up stairs and feeling SOB with feeling of palpitations. Denied CP, diaphoresis, weakness, lightheadedness or associated sx at that time . Notable patient had few glasses of wine prior to vent, ?holiday heart/alcohol induced #New onset a-fib w/ RVR Patient with palpitations and shortness of breath when climbing stairs likely related to A-fib with rates in the 120s at the time, untreated HANSEL suspected as well Provided with Cardizem 10mg IV, improvement in HR to 80-100s, but up to 130-150s when walking with some increased SOB w/ exertion but no CP reported and was placed on Heparin gtt. CTA chest negative for PE Trop 28.7--> 36.9--> 37.7 and remained fairly flat, no CP reported TSH elevated to 4.9 but normal T4/T3 - repeat outpt rec'd Cardiology consulted and ECHO ordered ECHO w/ aortic valve sclerosis mild, without significant aortic valvular stenosis. LV is normal in size. Mild concentric LVH> EF 55-60%. Base of septum and base of inferior wall are dyskinetic consistent with old [place]. Diastolic dysfunction, grade II. Started/changed to Metoprolol succinate 25mg daily and HR well controlled Heparin gtt converted to eliquis 5mg BID and providing coupon at [facility] and [facility]. Plavix to be stopped, aspirin continued Event monitor to be arranged at [facility], navigator consult placed for follow up in AM Outpatient follow up with Dr Montoya Also will need outpatient sleep study for eval suspected underlying HANSEL> Overnight pulse ox inpatient without significant drop. HR 60-90s on telemetry, feeling well/no reported palpitations or SOB w/ activity. Do note patient w/ coughing reported on heparin gtt and subconjunctival hemm noted to L eye but no visual symptoms and to continue compress/drops at [facility] and alert if any worsening. K stable (initially reported 5.2, had banana - repeated 4.9 and stable and not on meds to cause). rec low K diet at [facility].. mag wln on check Also discussed pre-DM and TRG elevation in setting statin intolerance and rec to discuss possible Zetia w/ primary care in f/u and cut back on candies (likes he rshey bars) which should also help with both #CAD-hx CAD w/ ADAMS to LAD, RCA. On DAPT at baseline but given afib as above/cardiology consult plan to stop plavix and continue aspirin with eliquis at [facility]. Continued on PPI/pepcid if needed #CAD- hx CAD w/ ADAMS to LAD, RCA. On DAPT at baseline but given afib as above/cardiology consult planning to stop plavix and continue aspirin with eliquis. Pepcid once daily for GI proph/monitor for PPI if needed Outpatient follow up with Dr Montoya #HTN -Blood pressure of 127/70 at time of admission, not on any agents at baseline but w above now on metoprolol and HR and BP stable w/o symptoms. Outpt f/u #HLDHistory of statin intolerance (statin myopathy) on praluent. Lipid panel reviewed/discussed w/ patient and rec f/u discussion to entertain zetia. reduce candies/diet modification discussed #Suspected HANSEL- check overnight pulse ox, outpt sleep study -- neg but noted in 87s at times and do suspect has w/ daytime sleepiness reported and rec for formal outpt sleep study/CPAP (consider nasal pillows) DIspo: discharged home Notes For Next Care Provider Follow up on event monitor results, Dr Montoya follow up at discharge Follow up A1c 6.0 - consider starting metformin therapy, also noted TRG 175-- ? zetia given tolerance for statins for better risk prevention/treatment -- did discuss Zetia w/ patient Did have some sub conj hemm to L eye but no visual sx and suspect coughing episode while on eliquis - warm compress/monitor for any issues Rec outpatient arrangement for formal sleep study- overnight pulse ox not impressive but does have sx c/w such Rec consider repeating thyroid function testing but normal t3/t4 and was not started on any supplementation Medication Changes From Visit Eliquis 5mg BID Metoprolol succinate 25mg daily Stopped plavix pepcid prn Admission HPI Per Admitting Provider Patient is a 69-year-old male with past medical history of CAD (stent to LAD in 1999, 2000: repeat cath in 2012 with stent placement to RCA), hypertension, hyperlipidemia, statin intolerance, DDD, GERD, BPH, migraine, and osteoarthritis who came to the emergency department after experiencing sudden onset shortness of breath when he was walking upstairs. Patient was in his usual state of health earlier this morning and was able to run up 2 flights of stairs without feeling winded or having any symptoms. Then later in the day, he was having a few glasses of wine with his dinner and started to feel "strange" and was going up the stairs of his fall when he started feeling dyspneic and was experiencing palpitations. Denies having any chest pain, diaphoresis, weakness, lightheadedness, dizziness, or any other associated symptom at the time. His daughter, who is an ED nurse, noted his symptoms and checked his Apple Watch, which indicated that he was in A-fib with heart rate in the 120s. Patient has not had a similar experience in the past. He is very active. Of note, patient's states that he does snore and has episodes when is sleeping where he stops breathing and after a few seconds suddenly starts breathing again. He does not have a formal diagnosis of HANSEL and has not had a sleep study done in the past. ED Course: Given NSS 500mL bolus, given Cardizem 10mg IV x1, started on Heparin gtt Labs/Imaging: CBC without leukocytosis, hemoglobin of 16, platelets of 214. CMP without significant electrolyte abnormalities, potassium of 4.4, renal markers were in the grams range. Magnesium of 1.8. TSH of 4.976. Troponin of 28.7 seen with 2-hour repeat showing level of 36.9, BNP of 461. Chest x-ray without acute changes and chest CTA was negative for PE. Medical History: [Reviewed] Medications: [Reviewed] Surgical History: [Reviewed] Family history: [Reviewed] Allergies: [Reviewed] Social History: [Reviewed] Code Status: FULL Admission Exam Per Admitting Provider GENERAL: Awake alert and oriented in all spheres, afebrile, no acute distress HEAD: AT, NC EYES: EOM intact, ARIN THROAT: normal to visual inspection CHEST: symmetric chest expansions with respirations CARDIO: irregular rate, no r/m/g PULMONARY: CTA bilaterally, normal respiratory effort, no respiratory distress GI: soft, nontender, non distended EXTREMITIES: no swelling or calf tenderness in b/l LE Discharge Exam General: WD/WN male sitting up in bed, NAD HEENT: head atraumatic, normocephalic, mmm,trachea midline Resp: even/unlabored, slightly reduced in the bases but no wheezing/rales on RA CV: irregularly irregular, rates 60-80s, faint systolic murmur, no pitting edema, no calf tenderness, pulses present GI: +BS,soft/nt no grigsby MSK/Neuro: nonfocal, not confused Psych: AOx3, cooperative and pleasant during encounter Discharge Plan Discharge Items Patient Disposition: Home - Self-Care Reason For Visit: SHORTNESS OF BREATH Discharge Diagnosis: Atrial Fibrillation with rapid ventricular response Condition on Discharge: Good Goals: You have been hospitalized for an acute medical problem. During your stay at [facility], we have made an effort to correct the problem that brought you to the hospital while keeping you as comfortable as possible. Medications were used to bring your condition under control and your discharge instructions will include directions for any medications you should take after leaving the hospital. Please make sure you see your Primary Care Provider as part of your follow up plan. Activity: As commented below Non-emergency contact: Primary Care Provider and Motor Grader Operator Call non-emergency contact if: you have any medication questions, your symptoms worsen, your pain is not controlled and your rectal temperature is above 100.4 Follow-up/Referrals: Stefano Montoya Jr, MD, FACC [Physician] - Kalpesh Bee DO [Primary Care Provider] - 05/15/25 9:30 am Diet: Carb Consistent or DM2, Heart Healthy and Low Potassium (2gm) Addtl Attending Provider Instructions: You have been hospitalized for shortness of breath and found to be in irregular heart rhythm called atrial fibrillation. Cardiology was consulted and you had ECHO done (ultrasound of the heart) and were placed on blood thinner called eliquis which should be taken twice daily. Aspirin has been continued but plavix has been STOPPED. You were started on metoprolol 25mg once daily in the morning and we are arranging for event monitor at discharge to see how your rates are at home and may need further adjustment in follow up with Dr Montoya. Please avoid NSAIDs to prevent risk of bleeding. Continue protonix twice daily with pepcid as needed but if any bleeding observed please alert primary care. Please continue low potassium diet for now. Please avoid excessive bananas/potassium rich foods. Repeat labs have shown potassium normalized. Continue saline eye drops and WARM COMPRESS 2-3x/day. Monitor for any increased bleeding/blurry vision or visual changes to contact PCP or return to ER> We discussed elevated triglycerides and pre-diabetes level. Recommend decreasing candies and discuss possible ZETIA with primary care for ongoing management. Overnight sleep study did not show an acute drop in oxygen levels but is not the best test in the hospital and recommend having a formal sleep study with primary care as an outpatient. Please follow up with primary care and Dr Montoya in follow up. Please return to the ER with any return or worsening symptoms, bleeding in stool/urine or other. It has been a pleasure being a part of the medical team providing for you while you have been in the hospital. Take care! Pending Studies at Discharge: No Stand-Alone Forms: [facility] [employer], Smoking Cessation Medications and DC Order Prescriptions: New famotidine 20 mg Tablet 20 mg PO QAM Qty: 30 0RF Eliquis 5 mg tablet 5 mg PO BID Qty: 60 0RF metoprolol succinate 25 mg Tablet Extended Release 24 Hr 25 mg PO QAM Qty: 30 0RF Continued pantoprazole 40 mg tablet,delayed release (DR/EC) 40 mg PO BID Qty: 60 11RF mecobalamin (vitamin B12) 1,000 mcg tablet,chewable 1,000 mcg PO DAILY aspirin 81 mg tablet 81 mg PO QAM nitroglycerin 0.4 mg tablet, sublingual 0.4 mg SL Q5M PRN (Reason: chest pain) Qty: 25 1RF Rx Instructions: until response; do not exceed 3 doses per episode methocarbamol 500 mg tablet 500 mg PO TID PRN (Reason: muscle spasm) Qty: 270 1RF acetaminophen 500 mg Capsule 500 mg PO QID PRN (Reason: Pain) bkugezfquv-crvdwshsqblsm-meot 50-325-40 mg tablet 1 - 2 tab PO Q4H MDD 6 TABS/24 HOURS PRN (Reason: HEADACHES) Praluent Pen 75 mg/mL pen injector 150 mg subcut Q14D Discontinued clopidogrel 75 mg tablet 75 mg PO QAM Discharge Orders: Discharge Order (Routine); Ordered 05/07/25 Ordered By: Leslie Shine/Other Patient Handouts: Prediabetes, 5 Steps for Eating Healthier Admission Data Admit Date/Time: 05/06/25 02:06 Attending Provider: Gilbert Giang Admit Provider: Yeimi Manzo Primary Care Provider: Kalpesh Bee Other Providers: Indu Wilson; John Grande; Diego Cabral; Blanco Gonzalez; Mo Mendes; Stefano Montoya Jr; Hong Vasquez; Leah Galicia; Isidra Arvizu; Prabhjot Valentino; Prabhjot Perry; Angela Mandel; Mauri Forte; Carol Ann Alejo; Mauri Chaney; Chance Turner; Estuardo Perez; Vince Mortensen; Sunny Woodruff; Gordy Grande; Teresa Buckner Other Interventions: Discharge Summary Assessment (RN) Last Done: 05/07/25 11:06 Hospital Stay Data Consultations 05/06/25 01:06 ED Decision to Admit Stat 05/06/25 07:43 Consult Cardiology Routine 05/07/25 09:02 Consult [facility] correction worker Routine Diagnostic Imagining Performed Chest X-Ray 05/05/25 23:16 Exam(s): XR CXR 1 VIEW EXAM: XR Chest, 1 View CLINICAL HISTORY: Chest Pain, nonspecific. TECHNIQUE: Frontal view of the chest. COMPARISON: No relevant prior studies available. FINDINGS: Lungs: Unremarkable. No consolidation. Pleural space: Unremarkable. No pneumothorax. Heart: Cardiomegaly. Mediastinum: Unremarkable. Normal mediastinal contour. Bones/joints: There are degenerative changes of the spine. No acute fracture. IMPRESSION: Cardiomegaly. Electronically signed by: Rosaline Sinha MD 05/06/25 01:11 AM Chest CTA 05/05/25 23:22 EXAM: CT angio chest PE protocol CLINICAL HISTORY: Chest Pain, eval for PE TECHNIQUE: Contiguous axial images were obtained from the neck base through the upper abdomen following intravenous administration of iodinated contrast material. Angiographic images were processed, 3D MIP images were acquired for interpretation. If IV contrast material had not been administered, the likelihood of detecting abnormalities relevant to the patient's condition would have been substantially decreased. Coronal and sagittal 3-D MIPs were likewise performed and indicated to increase the sensitivity of detectin diffuse clinically relevant pathology. CT scan was performed according to ALARA (as low as reasonable achievable). COMPARISON: None. FINDINGS: Diffuse ground-glass hase are noted involving dependent portion of both lower lobes - suggest possibility of due to insufficient inspiration. Adequate contrast bolus without evidence of pulmonary embolism. The central airways are patent. The lungs are clear. No pleural effusion. The heart, aorta, and pulmonary arteries are of normal size and configuration. There are coronary artery and aortic atherosclerotic calcifications. No pericardial effusion is identified. The thyroid is unremarkable. No mediastinal, hilar, or axillary lymphadenopathy is noted. No suspicious lytic or sclerotic osseous lesions are identified. IMPRESSION: No evidence of pulmonary embolism . Diffuse ground-glass hase are noted involving dependent portion of both lower lobes Electronically signed by Alfonzo Fonseca 05-06-2025 12:52 AM ECHOCARDIOGRAM Aortic valve sclerosis mild, without significant aortic valvular stenosis. LV is normal in size. Mild concentric LVH. EF 55-60%. Base of septum and base of inferior wall are dyskinetic consistent with old [place]. Diastolic dysfunction, grade II. Discharge Instructions Given to Patient (Per Discharging Provider) You have been hospitalized for shortness of breath and found to be in irregular heart rhythm called atrial fibrillation. Cardiology was consulted and you had ECHO done (ultrasound of the heart) and were placed on blood thinner called eliquis which should be taken twice daily. Aspirin has been continued but plavix has been STOPPED. You were started on metoprolol 25mg once daily in the morning and we are arranging for event monitor at discharge to see how your rates are at home and may need further adjustment in follow up with Dr Montoya. Please avoid NSAIDs to prevent risk of bleeding. Continue protonix twice daily with pepcid as needed but if any bleeding observed please alert primary care. Please continue low potassium diet for now. Please avoid excessive bananas/potassium rich foods. Repeat labs have shown potassium normalized. Continue saline eye drops and WARM COMPRESS 2-3x/day. Monitor for any increased bleeding/blurry vision or visual changes to contact PCP or return to ER> We discussed elevated triglycerides and pre-diabetes level. Recommend decreasing candies and discuss possible ZETIA with primary care for ongoing management. Overnight sleep study did not show an acute drop in oxygen levels but is not the best test in the hospital and recommend having a formal sleep study with primary care as an outpatient. Please follow up with primary care and Dr Montoya in follow up. Please return to the ER with any return or worsening symptoms, bleeding in stool/urine or other. It has been a pleasure being a part of the medical team providing for you while you have been in the hospital. Take care! Supervising Physician Co-Signing Physician Notes The patient was not seen by me. The chart was reviewed. Case discussed with ARISTEO Fay. Agree with assessment and plan Total Time Total Time Spent Total Time Spent (In Minutes): 60 Coding Level of Care Code 72834 INP/OBS DISCH >30 MIN Diagnoses Atrial fibrillation with rapid ventricular response I48.91 Coronary artery disease I25.10 Presence of drug-eluting stent in right coronary artery Z95.5 Status post insertion of drug-eluting stent into left anterior descending (LAD) artery Z95.5 Hyperlipidemia E78.5 Statin myopathy G72.0; T46.6X5A
[2025-05-07] MEDS: ASPIRIN 81 MG ECTAB PO SCH (09:06)
[2025-05-07] MEDS: METOPROLOL SUCC 25MG EXT REL TAB PO SCH (09:08)
[2025-05-07 10:05] LABS: Anion Gap 3.0 (3-11); Blood Urea Nitrogen 19.0 mg/dl (6-23); Calcium 9.2 mg/dl (8.6-10.3); Carbon Dioxide 29.0 mmol/L (21-32); Chloride 102.0 mmol/L (98-107); Creatinine Clr Calc Pharmacy 68.6 ml/min; Glucose 195.0 mg/dl (70-99(Fasting)); Potassium 4.9 mmol/L (3.5-5.1); Sodium 134.0 mmol/L (136-145)
[2025-05-07 11:09] VITALS: BP 117/73; PULSE 72
--- NOTE | 2025-05-08 07:54 | Electrocardiogram Report ---
Test Reason : Blood Pressure : */* mmHG Vent. Rate : 92 BPM Atrial Rate : * BPM P-R Int : * ms QRS Dur : 88 ms QT Int : 344 ms P-R-T Axes : * 52 195 degrees QTcB Int : 425 ms Atrial fibrillation Marked ST abnormality, possible inferolateral subendocardial injury Abnormal ECG When compared with ECG of 05-May-2025 23:19, (unconfirmed) No significant change was found Confirmed by Lianne Zambrano (Yariel) on 05/08/2025 7:54:11 AM Referred By: REFERRED SELF Confirmed By: Lianne Zambrano
--- NOTE | 2025-05-08 07:54 | Electrocardiogram Report ---
Test Reason : Blood Pressure : */* mmHG Vent. Rate : 117 BPM Atrial Rate : * BPM P-R Int : * ms QRS Dur : 92 ms QT Int : 314 ms P-R-T Axes : * 57 209 degrees QTcB Int : 438 ms Atrial fibrillation with rapid ventricular response Marked ST abnormality, possible inferior subendocardial injury Abnormal ECG When compared with ECG of 02-Jun-2024 08:53, (unconfirmed) Atrial fibrillation has replaced Sinus rhythm Vent. rate has increased by 61 bpm T wave inversion more evident in Inferior leads T wave inversion no longer evident in Anterior leads Confirmed by Lianne Zambrano (Yariel) on 05/08/2025 7:53:59 AM Referred By: REFERRED SELF Confirmed By: Lianne Zambrano
--- NOTE | 2025-05-08 07:56 | Electrocardiogram Report ---
Test Reason : Blood Pressure : */* mmHG Vent. Rate : 114 BPM Atrial Rate : * BPM P-R Int : * ms QRS Dur : 92 ms QT Int : 304 ms P-R-T Axes : * 86 240 degrees QTcB Int : 419 ms Atrial fibrillation with rapid ventricular response Marked ST abnormality, possible inferolateral subendocardial injury Abnormal ECG When compared with ECG of 05-May-2025 23:32, (unconfirmed) No significant change was found Confirmed by Lianne Zambrano (Yariel) on 05/08/2025 7:55:40 AM Referred By: REFERRED SELF Confirmed By: Lianne Zambrano
== END 2025-05-07 12:04 | disposition home or self-care (01) | DRG 310 ==
LOC: ED 23:11 → SUATTDRO 05-06 02:06 → EDINP 05-06 02:06 → 2N 05-06 02:35

== ENCOUNTER 2025-06-08 07:27 | Inpatient (IN) ==
[2025-06-08 08:23] LABS: Hematocrit (blood only) 46.7 % (42.0-52.0); Hemoglobin 15.3 g/dl (14.0-18.0); Immature Granulocytes # (auto) 0.02 K/uL (0.01-0.20); Immature Granulocytes % (auto) 0.2 %; Mean Corpuscular Hemoglobin 31.7 pg (25.0-34.0); Mean Corpuscular Volume 96.7 fL (80.0-100.0); Platelet Count 204 K/uL (130-400); RDW Standard Deviation 46.0 fL (36.4-46.3); Red Blood Count 4.83 M/uL (4.70-6.10); White Blood Count 8.03 K/ul (4.8-10.8)
[2025-06-08 08:25] LABS: Base Excess VBG -1.1 mEq/L; HCO3 VBG 24 mmol/L; Oxygen Saturation VBG < 60.0 %; PCO2 VBG 42 mmHg (38-50); PO2 VBG 35 mmHg; pH VBG 7.37 (7.36-7.41)
[2025-06-08 08:45] LABS: Alanine Aminotransferase 43.0 U/L (7-52); Albumin Globulin Ratio 1.3 (0.9-2); Alkaline Phosphatase 62.0 U/L (34-104); Anion Gap 7.0 (3-11); Bilirubin,Total 1.7 mg/dl (0.2-1.0); Blood Urea Nitrogen 16.0 mg/dl (6-23); Calcium 9.6 mg/dl (8.6-10.3); Carbon Dioxide 26.0 mmol/L (21-32); Chloride 105.0 mmol/L (98-107); Creatinine Clr Calc Pharmacy 65.6 ml/min; Globulin 3.2 gm/dl (2.5-4.0); Glucose 123.0 mg/dl (70-99(Fasting)); Magnesium 2.0 mg/dl (1.7-2.4); Potassium 4.5 mmol/L (3.5-5.1); Sodium 138.0 mmol/L (136-145); Total Protein 7.5 gm/dl (6.0-8.3)
--- NOTE | 2025-06-08 08:46 | Emergency Department Note ---
Impression & Plan Acute exacerbation of CHF (congestive heart failure), Pulmonary edema, Pleural effusion, Bradycardia, sinus ED Provider Note NAME: RADHA MULLEN AGE: 69 SEX: M : 1955 ARRIVES VIA: Walk-In INFORMANT: Patient, ED PROVIDER(S): Lalo Wheatley DO CHIEF COMPLAINT: SOB, abdominal pain HPI: This is a 69-year-old male with the PMHx of HTN, HLD, CAD s/p PCI, GERD, BPH and pAfib s/p DCCV presenting to [facility] for further evaluation of abdominal pain. Patient is accompanied by his who provide additional history. The patient is complaining of mostly crampy upper abdominal pain and fullnesss. He notes that he is struggling to sleep due to his symptoms. He has severe orthopnea that he attributes to HANSEL. He does have a CPAP machine that will be arriving this week. [facility]. He does have mild dyspnea at rest but this worsens with minimal activity. They deny fever or chills. No cough or congestion. Denies chest pain or palpitations. They deny nausea and vomiting. No urinary complaints. No recent changes in bowel movements. Patient denies recent changes in medications or OTC supplements. Patient offers no other complaints, today. ADDITIONAL HISTORY OBTAINED: Per HPI Chronic Medical/Social Conditions Affecting Care: Per HPI PAST MEDICAL HISTORY: See Below PAST SURGICAL HISTORY: See Below FAMILY HISTORY: See Below SOCIAL HISTORY: See Below HOME MEDICATIONS: See Below ALLERGIES: See Below VITALS: See Below PHYSICAL EXAMINATION: GENERAL: Sitting up in bed, alert, well appearing, well nourished, no distress, non-toxic EYE EXAM: normal conjunctiva. PERRL and EOM's grossly intact. OROPHARYNX: no exudate, no erythema, lips, buccal mucosa, and tongue normal and mucous membranes are moist NECK: supple, no nuchal rigidity, no adenopathy, non-tender LUNGS: Decreased BS at the bilateral lower bases. Normal chest wall mechanics HEART: no murmurs, regular rate, regular rhythm ABDOMEN: abdomen soft, non-tender, no masses, no rebound or guarding. BACK: Back is symmetrical on inspection and there is no deformity, no midline tenderness, no CVA tenderness. SKIN: no rashes and no bruising UPPER EXTREMITIES: upper extremities are grossly normal. LOWER EXTREMITIES: No pitting edema. NEURO EXAM: Normal sensorium, GCS 15, normal speech, no gross weakness of arms, no gross weakness of legs. MEDICAL DECISION MAKING: Differential diagnoses includes but not limited to CHF exacerbation, pulmonary edema, HANSEL, pleural effusion, hepatobiliary pathology, pancreatitis, electrolyte derangements In summary, this is a 69 year old male who presented with abdominal pain and orthopnea. Differential as above. Nursing notes and pertinent past medical records reviewed. Vital signs reviewed and the patient is afebrile and HDS. He is intermittently bradycardic. History and presentation revealed relatively recent diagnosis of pAfib. I did review cardiology documentation and recent uncomplicated DCCV. I reviewed home vital signs with the patient. He has been normotensive but his heart rate has been low. Heart rate has been anywhere from the 40s to 60s. May be adjusting to his new metoprolol and may need a dosing decrease. Physical examination revealed as above. As a result of my initial evaluation, I do think this is likely a CHF exacerbation but will consider intraabdominal pathology as well as medication side effect from beta blockade given low HRs at home. Diagnostics interpreted by me include EKG and cardiac monitoring as listed below: -Cardiac Monitoring: An order was placed for continuous cardiac monitoring. The monitor shows a rate of 40-60s with regular rhythm. -ECG: EKG independently interpreted by me reveals normal sinus rhythm at a ventricular rate of [address] segment changes to suggest STEMI. There are lateral depressions present. Lateral depressions were found prior on EKGs. Intervals within normal limits. Patient completed laboratory studies and imaging. CXR independently interpreted by me shows interstitial edema, bilateral pleural effusions and cardiomegaly. Results independently interpreted by me are elevated BNP. No severe electrolyte derangements, leukocytosis or anemia. Troponin is minimally elevated but likely related to his CHF. The patient was managed with dose of IVP Furosemide. Dosing was low as he is naive to diuretics. The patient's presentation is consistent with CHF with irritation of the diaphragm causing some discomfort. Based on CTAP, he does have minimal ascites, likely from CHF, that could explain some of his symptoms. There was no acute intraabdominal pathology. While he does not appear massively hypervolemic, I do feel he would benefit from admission for medication adjustments and IV diuresis to assist with him pulmonary edema. Ultimately, the decision was made to admit the patient for acute hypoxic respiratory failure 2/2 L sided CHF. It was recommended to admit this patient at 0931. I discussed the case with the hospitalist service via telephone/TigerText and they are agreeable to admit the patient to their services by Dr. Motley at 1000. Based on the above, including the patient's age, coexisting illnesses, labs, imaging, and exam findings the decision to treat as an inpatient. I discussed the patient with the hospitalist team who recommended admission to their services. They received the medications, treatments, interventions indicated above and their condition remained stable. I discussed my findings with the patient and their family and they understand and agree with the treatment plan. All patient / family questions were answered to their satisfaction. Consults/Care Managements Discussions: Per MDM ER treatment provided: See above Procedures:none Critical Care: None The chart was completed utilizing [employer] Speech voice recognition software. Grammatical errors, random word insertions, pronoun errors, and incomplete sentences are an occasional consequence of this system due to software limitations, ambient noise, and hardware issues. Any formal questions or concerns about the content, text, or information contained within the body of this dictation should be directly addressed to the physician for clarification. Past Med/Surg History Problem List (Updated 06/11/25 @ 07:58 by Lalo Wheatley DO) Bradycardia, sinus (Acute) Pleural effusion (Acute) Pulmonary edema (Acute) Acute exacerbation of CHF (congestive heart failure) (Acute) (HFpEF) heart failure with preserved ejection fraction Paroxysmal atrial fibrillation Chronic anticoagulation Nocturnal hypoxemia Sleep apnea New onset atrial fibrillation (Acute) Statin myopathy Presence of drug-eluting stent in right coronary artery Status post insertion of drug-eluting stent into left anterior descending (LAD) artery Statin intolerance Lumbar facet arthropathy Trochanteric bursitis of both hips Elevated glucose Degenerative disc disease, lumbar Antiplatelet or antithrombotic long-term use HTN (hypertension) h/o - no longer treated for GERD (gastroesophageal reflux disease) (Chronic) BPH (benign prostatic hyperplasia) Migraine headache Hyperlipidemia (Chronic) Medical History Coronary artery disease S/p stent to LAD (1999 and 2000). Last cath (2012) ADAMS to RCA. Managed with DAPT + statin. No BB due to low HR and BP. Hyperlipidemia Sleep apnea recent dx, no cpap yet Atrial fibrillation with rapid ventricular response dx 04/2025 Trochanteric bursitis of both hips Lumbar facet arthropathy HTN (hypertension) BPH (benign prostatic hyperplasia) DJD (degenerative joint disease), cervical cannot turn left to right as previous, needs to have neck support during procedure or will get a migraine DJD (degenerative joint disease), lumbar Hx of migraines GERD (gastroesophageal reflux disease) Osteoarthritis Chronic neck pain PONV (postoperative nausea and vomiting) Chronic low back pain Surgical History Hx of vasectomy History of esophagogastroduodenoscopy (EGD) History of colonoscopy H/O heart artery stent No [place], x 5 (most recent 04/2020) Follows with Dr. Montoya (11/2022) H/O cardiac catheterization (~2012) No [place], multi caths, most recent 05/2024 no stents S/P inguinal hernia repair Family History Father Coronary heart disease Heart disease Mother Osteoarthritis Crohn's disease Brother Coronary heart disease Hypertension Diabetes Uncle Prostate cancer Brother Heart disease Myocardial infarction Denies family history of Ovarian cancer Breast cancer Lung cancer Colorectal cancer Social History Smoking Status: Never smoker Second Hand Exposure: No; Do You Dip or Chew Tobacco: No; Hx Alcohol Use: Yes Alcohol type: wine Alcohol Intake Frequency: 2-3 x/Week Hx Substance Use: No Preferred Language: Mongolian Communication Ability: Effective Visual Impairment: Diminished Hearing Ability: Normal Diamond Wheel Edger Required: No Beliefs That Will Affect Care: None marital status: Current Living Situation: Spouse current occupational status: retired 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 Feels Safe at Home: Yes Childhood Exposure to Second-Hand Smoke: Yes Diet: regular caffeine: No Dental Care, Regularly: Yes Physical Activity Frequency: 3-4 Times per Week Physical Activity Frequency Comment: weights and arobic Seatbelt Use: always Sunscreen Use: Yes Assistive Devices: Glasses Allergies Allergies Allergy/AdvReac Type Severity Reaction Status Date / Time atorvastatin [From Lipitor] AdvReac Intermediate Cramping Verified 06/02/25 07:39 of the Muscles pravastatin AdvReac Intermediate Cramping Verified 06/02/25 07:39 of the Muscles simvastatin [From Zocor] AdvReac Intermediate Cramping Verified 06/02/25 07:39 of the Muscles [id number] Reductase AdvReac Intermediate Cramping Verified 06/02/25 07:39 Inhibitor of the Muscles Home Meds Home Medications Medication Instructions Recorded Confirmed aspirin 81 mg tablet 81 mg PO QAM 05/12/19 06/08/25 acetaminophen 500 mg capsule 500 mg PO QID PRN Pain 09/17/21 06/08/25 mecobalamin (vitamin B12) 1,000 1,000 mcg PO DAILY 10/07/22 06/08/25 mcg chewable tablet alirocumab 75 mg/mL subcutaneous 150 mg subcut Q14D 03/14/24 06/08/25 pen injector (Praluent Pen) [id number] 1 - 2 tab PO Q4H PRN HEADACHES 05/06/25 06/08/25 50 mg-325 mg-40 mg tablet famotidine 20 mg tablet 20 mg PO QAM PRN GERD 06/08/25 06/08/25 pantoprazole 20 mg tablet,delayed 20 mg PO BID 06/08/25 06/08/25 release (Protonix) Previous Rx's Medication Instructions Recorded nitroglycerin 0.4 mg sublingual 0.4 mg sublingual Q5M PRN chest 03/28/20 tablet pain #25 tabs methocarbamol 500 mg tablet 500 mg PO TID PRN muscle spasm 04/25/25 #270 tabs apixaban 5 mg tablet (Eliquis) 5 mg PO BID #60 tabs 05/06/25 empagliflozin 10 mg tablet 10 mg PO DAILY #30 tabs 06/09/25 (Jardiance) furosemide 20 mg tablet 20 mg PO QAM #30 tabs 06/09/25 magnesium 250 mg tablet 250 mg PO HS #30 tabs 06/09/25 metoprolol succinate 25 mg 12.5 mg (1/2 x 25 mg) PO BID #30 06/09/25 tablet,extended release 24 hr tabs potassium chloride 10 mEq 10 meq PO QAM #30 caps 06/09/25 capsule,extended release Results & Data (ED) Vital Signs Vital Signs - 24 hr 06/08/25 07:32 06/08/25 07:52 06/08/25 07:55 Temperature 36.0 C L Temperature Source Temporal Artery Scan Pulse Rate 59 L 64 Pulse Rate [Left Finger] 58 L Pulse Rhythm Respiratory Rate 20 21 Respiratory Effort / Characteristics Short of Breath Non-Labored Respiratory Depth Normal Respiratory Pattern Regular Blood Pressure 149/97 H Blood Pressure [Right Arm] 153/93 H Blood Pressure Mean 114 Blood Pressure Mean [Right Arm] 113 Pulse Oximetry 94 91 Oxygen Delivery Method Room Air Room Air Oxygen Flow Rate Sepsis Recent Fever Within 48 Hours No Sepsis New/Unexplained Change in Mental Status N/A Sepsis Action Taken by Nursing No Action Required Oxygen Flow Rate - Titration Pulse Oximetry Post Tiitration 06/08/25 08:00 06/08/25 08:21 06/08/25 09:20 Temperature Temperature Source Pulse Rate 61 Pulse Rate [Left Finger] Pulse Rhythm Regular Respiratory Rate 17 Respiratory Effort / Characteristics Non-Labored Respiratory Depth Normal Respiratory Pattern Regular Blood Pressure Blood Pressure [Right Arm] Blood Pressure Mean Blood Pressure Mean [Right Arm] Pulse Oximetry 91 88 L Oxygen Delivery Method Room Air Room Air Nasal Cannula Oxygen Flow Rate 0 Sepsis Recent Fever Within 48 Hours Sepsis New/Unexplained Change in Mental Status Sepsis Action Taken by Nursing Oxygen Flow Rate - Titration 2 Pulse Oximetry Post Tiitration 97 06/08/25 09:48 Temperature Temperature Source Pulse Rate Pulse Rate [Left Finger] 60 Pulse Rhythm Respiratory Rate 25 H Respiratory Effort / Characteristics Respiratory Depth Respiratory Pattern Blood Pressure Blood Pressure [Right Arm] 160/103 H Blood Pressure Mean Blood Pressure Mean [Right Arm] 122 Pulse Oximetry 97 Oxygen Delivery Method Nasal Cannula Oxygen Flow Rate 2 Sepsis Recent Fever Within 48 Hours Sepsis New/Unexplained Change in Mental Status Sepsis Action Taken by Nursing Oxygen Flow Rate - Titration Pulse Oximetry Post Tiitration Laboratory Data 06/09/25 05:40 06/09/25 05:40 Lab Results 06/08/25 06/08/25 06/08/25 Range/Units 07:55 08:40 08:57 WBC 8.03 (4.8-10.8) K/ul RBC 4.83 (4.70-6.10) M/uL Hgb 15.3 (14.0-18.0) g/dl Hct 46.7 (42.0-52.0) % MCV 96.7 (80.0-100.0) fL MCH 31.7 (25.0-34.0) pg MCHC 32.8 (32.0-36.0) g/dL RDW Std Deviation 46.0 (36.4-46.3) fL RDW Coeff of Elidia 12.9 (11.5-14.5) % Plt Count 204 (130-400) K/uL MPV 10.3 (9.4-12.4) fL Immature Gran % (Auto) 0.2 % Neut % (Auto) 72.9 % Lymph % (Auto) 16.7 % Beauregard % (Auto) 8.2 % Eos % (Auto) 1.4 % Baso % (Auto) 0.6 % Neut # (Auto) 5.85 (1.40-6.50) K/uL Lymph # (Auto) 1.34 (1.20-3.40) K/uL Bea[place]gard # (Auto) 0.66 H (0.11-0.59) K/uL Eos # (Auto) 0.11 (0.00-0.50) K/uL Baso # (Auto) 0.05 (0.00-0.20) K/uL Immature Gran # (Auto) 0.02 (0.01-0.20) K/uL PT Cancelled Cancelled INR Cancelled Cancelled APTT Cancelled Cancelled PTT Ratio Cancelled Cancelled Sodium 138 (136-145) mmol/L Potassium 4.5 (3.5-5.1) mmol/L Chloride 105 (98-107) mmol/L Carbon Dioxide 26 (21-32) mmol/L Anion Gap 7 (3-11) BUN 16 (6-23) mg/dl Creatinine 1.15 (0.6-1.4) mg/dl Est Cr Clr Drug Dosing 65.6 ml/min eGFR 68.47 BUN/Creatinine Ratio 13.9 (10-20) Glucose 123 H (70-99(Fasting)) mg/dl Calcium 9.6 (8.6-10.3) mg/dl Magnesium 2.0 (1.7-2.4) mg/dl Total Bilirubin 1.7 H (0.2-1.0) mg/dl AST 24 (13-39) U/L ALT 43 (7-52) U/L Alkaline Phosphatase 62 (34-104) U/L Troponin I High Sens 21.0 H (0-20) pg/ml B-Natriuretic Peptide 513 H (0-100) pg/ml Total Protein 7.5 (6.0-8.3) gm/dl Albumin 4.3 (3.4-5.0) gm/dl Globulin 3.2 (2.5-4.0) gm/dl Albumin/Globulin Ratio 1.3 (0.9-2) Urine Color Yellow Urine Appearance Clear (Clear) Urine pH 5.5 (4.5-7.5) Ur Specific [employer] 1.019 (1.000-1.030) Urine Protein Negative (Negative) Urine Glucose (UA) Negative (Negative) Urine Ketones 1+ H (Negative) Urine Blood Negative (Negative) Urine Nitrite Negative (Negative) Urine Bilirubin Negative (Negative) Urine Urobilinogen Negative (Negative) Ur Leukocyte Esterase Trace H (Negative) Urine WBC (Auto) 0-5 (0-5) /hpf Urine RBC (Auto) 0-2 (0-2) /hpf U Hyaline Cast (Auto) 0-2 (0-2) /lpf U Epithel Cells (Auto) 0-2 (0-2) /hpf Urine Bacteria (Auto) None Seen (None Seen) Urine Comment 06/08/25 06/08/25 Range/Units 09:29 10:05 WBC (4.8-10.8) K/ul RBC (4.70-6.10) M/uL Hgb (14.0-18.0) g/dl Hct (42.0-52.0) % MCV (80.0-100.0) fL MCH (25.0-34.0) pg MCHC (32.0-36.0) g/dL RDW Std Deviation (36.4-46.3) fL RDW Coeff of Elidia (11.5-14.5) % Plt Count (130-400) K/uL MPV (9.4-12.4) fL Immature Gran % (Auto) % Neut % (Auto) % Lymph % (Auto) % Bea[place]gard % (Auto) % Eos % (Auto) % Baso % (Auto) % Neut # (Auto) (1.40-6.50) K/uL Lymph # (Auto) (1.20-3.40) K/uL [place] # (Auto) (0.11-0.59) K/uL Eos # (Auto) (0.00-0.50) K/uL Baso # (Auto) (0.00-0.20) K/uL Immature Gran # (Auto) (0.01-0.20) K/uL PT 11.7 INR 1.1 APTT 30 PTT Ratio 1.1 Sodium (136-145) mmol/L Potassium (3.5-5.1) mmol/L Chloride (98-107) mmol/L Carbon Dioxide (21-32) mmol/L Anion Gap (3-11) BUN (6-23) mg/dl Creatinine (0.6-1.4) mg/dl Est Cr Clr Drug Dosing ml/min eGFR BUN/Creatinine Ratio (10-20) Glucose (70-99(Fasting)) mg/dl Calcium (8.6-10.3) mg/dl Magnesium (1.7-2.4) mg/dl Total Bilirubin (0.2-1.0) mg/dl AST (13-39) U/L ALT (7-52) U/L Alkaline Phosphatase (34-104) U/L Troponin I High Sens 22.6 H (0-20) pg/ml B-Natriuretic Peptide (0-100) pg/ml Total Protein (6.0-8.3) gm/dl Albumin (3.4-5.0) gm/dl Globulin (2.5-4.0) gm/dl Albumin/Globulin Ratio (0.9-2) Urine Color Urine Appearance (Clear) Urine pH (4.5-7.5) Ur Specific [employer] (1.000-1.030) Urine Protein (Negative) Urine Glucose (UA) (Negative) Urine Ketones (Negative) Urine Blood (Negative) Urine Nitrite (Negative) Urine Bilirubin (Negative) Urine Urobilinogen (Negative) Ur Leukocyte Esterase (Negative) Urine WBC (Auto) (0-5) /hpf Urine RBC (Auto) (0-2) /hpf U Hyaline Cast (Auto) (0-2) /lpf U Epithel Cells (Auto) (0-2) /hpf Urine Bacteria (Auto) (None Seen) Urine Comment Administered Medications Discontinued Medications Acetaminophen (Acetaminophen 500 Mg Tab) 500 mg PO QID PRN PRN Reason: Pain Stop: 07/08/25 12:49 Last Admin: 06/08/25 18:04 Dose: 500 mg Documented By: KELLY Apixaban (Apixaban 5 Mg Tablet) 5 mg PO BID VIDAL Stop: 07/08/25 12:46 Last Admin: 06/09/25 08:00 Dose: 5 mg Documented By: Admin: 06/08/25 20:18 Dose: 5 mg Documented By: Admin: 06/08/25 13:23 Dose: 5 mg Documented By: GABY Aspirin (Aspirin 81 Mg Ectab) 81 mg PO QAM VIDAL Stop: 07/09/25 08:59 Last Admin: 06/09/25 08:02 Dose: 81 mg Documented By: KELLY Aspirin (Aspirin 81 Mg Ectab) 81 mg PO ONE STA Stop: 06/08/25 12:53 Last Admin: 06/08/25 13:23 Dose: 81 mg Documented By: GABY Calcium Carbonate (Calcium Carbonate 500 Mg Chewable Tab) 500 mg PO HS VIDAL Stop: 07/08/25 19:09 Last Admin: 06/08/25 20:18 Dose: 500 mg Documented By: IESHA Cyanocobalamin (Cyanocobalamin (B-12) 500 Mcg Tablet) 1,000 mcg PO DAILY VIDAL Stop: 07/09/25 08:59 Last Admin: 06/09/25 08:00 Dose: 1,000 mcg Documented By: KELLY Diazepam (Diazepam 5 Mg Tablet) 5 mg PO HS VIDAL Stop: 07/08/25 19:09 Last Admin: 06/08/25 20:18 Dose: 5 mg Documented By: IESHA Furosemide (Furosemide 40 Mg/4 Ml Vial) 40 mg IV ONE ONE Stop: 06/08/25 09:29 Last Admin: 06/08/25 09:57 Dose: 40 mg Documented By: denise Furosemide (Furosemide 40 Mg/4 Ml Vial) 40 mg IV BID17 VIDAL Stop: 07/08/25 16:59 Last Admin: 06/08/25 17:09 Dose: 40 mg Documented By: KELLY Furosemide (Furosemide 40 Mg/4 Ml Vial) 20 mg IV BID17 VIDAL Stop: 07/09/25 08:59 Last Admin: 06/09/25 08:03 Dose: 20 mg Documented By: KELLY Magnesium Sulfate/Dextrose (Magnesium Sulfate / D5w) 1 gm in 100 mls @ 50 mls/hr IV Q2H VIDAL Stop: 06/09/25 01:44 Last Infusion: 06/09/25 04:27 Dose: Infused Documented By: Admin: 06/09/25 02:06 Dose: 50 mls/hr Documented By: Infusion: 06/09/25 02:06 Dose: Infused Documented By: Admin: 06/08/25 23:17 Dose: 50 mls/hr Documented By: IESHA Ioversol (Optiray 320 100ml) 94 ml IV ONCE ONE Stop: 06/08/25 09:06 Last Admin: 06/08/25 09:05 Dose: 94 ml Documented By: ZAHEER Methocarbamol (Methocarbamol 500 Mg Tablet) 500 mg PO ONE ONE Stop: 06/08/25 12:10 Last Admin: 06/08/25 12:46 Dose: 500 mg Documented By: JOAN Methocarbamol (Methocarbamol 500 Mg Tablet) 500 mg PO TID PRN PRN Reason: muscle spasm Stop: 07/08/25 12:46 Last Admin: 06/08/25 16:55 Dose: 500 mg Documented By: KELLY Metoprolol Succinate (Metoprolol Succ 50mg Ext Rel Tab) 12.5 mg PO BID VIDAL Stop: 07/08/25 20:59 Last Admin: 06/09/25 07:59 Dose: Not Given Documented By: Admin: 06/08/25 20:18 Dose: 12.5 mg Documented By: IESHA Pantoprazole Sodium (Pantoprazole 40 Mg Tab) 40 mg PO BID VIDAL Stop: 07/09/25 08:59 Last Admin: 06/09/25 08:00 Dose: 40 mg Documented By: KELLY Pantoprazole Sodium (Pantoprazole 40 Mg Tab) 40 mg PO ONE STA Stop: 06/08/25 12:54 Last Admin: 06/08/25 13:23 Dose: 40 mg Documented By: GABY Potassium Chloride (Potassium Chloride Crtab 20 Meq Tabcr) 40 meq PO NOW STA Stop: 06/08/25 23:45 Last Admin: 06/08/25 23:59 Dose: 40 meq Documented By: IESHA Imaging Data Radiologist's Impression: Chest X-Ray 06/08/25 08:05 XR chest 2V PA/lateral CLINICAL HISTORY: Dyspnea COMPARISON STUDY: 05/05/2025 FINDINGS: Stable mild cardiomegaly with increased pulmonary vascular congestion. There is increased pulmonary interstitial prominence. There are small bilateral pleural effusions and mild associated lung base consolidation. No pneumothorax. IMPRESSION: Increased CHF with increased small bilateral pleural effusions. ACT 112: Negative or not required by law. Electronically signed by: Blu Silva M.D. 06/08/2025 8:48 AM Discharge Plan Visit Data Chief Complaint: Respiratory Problems Stated Complaint: TROUBLE BREATHING,BLOATING,STOMACH PAIN ED Provider: Lalo Wheatley Discharge Problem: Acute exacerbation of CHF (congestive heart failure), Pulmonary edema, Pleural effusion, Bradycardia, sinus Patient Disposition: Admitted As Inpatient Condition: Good Discharge Instructions Interventions: ED Discharge Assessment Last Done: 06/08/25 12:47
--- NOTE | 2025-06-08 08:49 | XRay Report ---
XR chest 2V PA/lateral CLINICAL HISTORY: Dyspnea COMPARISON STUDY: 05/05/2025 FINDINGS: Stable mild cardiomegaly with increased pulmonary vascular congestion. There is increased p ulmonary interstitial prominence. There are small bilateral pleural effusions and mild associated eugene g base consolidation. No pneumothorax. IMPRESSION: Increased CHF with increased small bilateral pleural effusions. ACT 112: Negative or not required by law. Electronically signed by: Blu Silva M.D. 06/08/2025 8:48 AM
[2025-06-08 09:03] LABS: Appearance Urine Clear (Clear); Bacteria Urine Automated None Seen (None Seen); Cast Urine Automated 0-2 /lpf (0-2); Epithelial Cell Urine Auto 0-2 /hpf (0-2); Glucose Urine UA Negative (Negative); RBC Urine Automated 0-2 /hpf (0-2); WBC Urine Automated 0-5 /hpf (0-5)
[2025-06-08] MEDS: OPTIRAY 320 100ml IV ONE (09:05)
[2025-06-08] MEDS: FUROSEMIDE 40 MG/4 ML VIAL IV ONE (09:57)
--- NOTE | 2025-06-08 10:01 | CT Scan Report ---
ABDOMEN AND PELVIS CT WITH IV CONTRAST CT DOSE: 904.72 mGy.cm HISTORY: Generalized abdominal pain abdominal pain, bloating, orthopnea TECHNIQUE: Multiaxial CT images of the abdomen and pelvis were performed following the IV administrat ion of 94 cc of Optiray, A dose lowering technique was utilized adhering to the principles of ALARA. COMPARISON STUDY: CT chest dated 05/05/25 FINDINGS: Extensive coronary artery calcifications. Moderate layering pleural effusions with dependen t bibasilar consolidation. Intralobular septal thickening. No pneumatosis or pneumoperitoneum. Unrema rkable spleen, pancreas, gallbladder and adrenal glands. Mild heterogeneity of the liver. Patent port al vein. Small renal sinus cysts of the left kidney which is otherwise normal in appearance. Atrophic right ki dney measures 6.4 cm in length with areas of multifocal cortical scarring. Thick-walled cystic focus within the superior pole right kidney measuring up to 2.5 cm suggestive of a probable calyceal divert iculum. Nonobstructing calculi in the right kidney measure up to 5 mm. No ureteral calculi or hydrone phrosis. Urinary bladder wall thickening with partial distention likely representing chronic outlet o bstruction. Mild prostamegaly. Prior bilateral inguinal hernia repair. Atherosclerosis of the aorta. No lymphadenopathy. No bowel obstruction or bowel wall thickening. There is trace abdominal pelvic ascites. Normal append ix. Small fat filled umbilical hernia. No acute fracture. IMPRESSION: 1. Cardiomegaly with fluid overload manifested by interstitial pulmonary edema, moderate pleural effu sions with trace ascites. 2. Nonobstructing right nephrolithiasis. 3. No ureteral calculi or hydronephrosis. 4. Atrophic right kidney with cortical scarring. 5. No bowel obstruction or bowel wall thickening. ACT 112: Negative or not required by law. The above report was generated using voice recognition software. It may contain grammatical, syntax o r spelling errors. Electronically signed by: Rafi Soler M.D. 06/08/2025 9:59 AM
--- NOTE | 2025-06-08 10:13 | History & Physical Report ---
Date of Service June 08, 2025 Assessment & Plan (1) (HFpEF) heart failure with preserved ejection fraction: (2) Acute respiratory failure with hypoxia: (3) Paroxysmal atrial fibrillation: (4) Coronary artery disease: Plan This patient is a 69-year-old male with history of CAD s/p LAD and RCA stents, paroxysmal atrial fibrillation s/p cardioversion on 06/06 on Eliquis, HTN, HANSEL about to start CPAP, GERD, BPH, migraine headaches, HLD with statin intolerance, chronic muscle spasms, and OA who presents to the ED with 2 days of worsening orthopnea, SOB, fatigue, heart rate in the 40s to 60s at home, and low oxygen levels with lying down. He had a cardioversion on 06/06 and has been in sinus bradycardia ever since. He also complains of some abdominal bloating. He was recently diagnosed with sleep apnea but has not yet received his CPAP machine. In the ED, he was found to have a mildly elevated troponin at 20, and elevated BNP in the 500s, and bilateral pleural effusions and evidence of heart failure on CXR and CT abdomen/pelvis. He was hypertensive and mildly hypoxic and was placed on 2 LNC supplemental O2. He received 1 dose of IV Lasix. He will be admitted for acute HFpEF and acute respiratory failure with hypoxemia. #Acute HFpEF/acute respiratory failure with hypoxemia/pleural effusions-likely secondary to being in uncontrolled rapid atrial fibrillation for the last month. Now s/p cardioversion on 06/06. BPs are elevated here but are typically controlled. Recent echo 04/2025 with LVEF 55-60%, mild LVH, base of septum and inferior wall dyskinetic C/W previous MT, grade 2 diastolic dysfunction. - Admit to PCU for arrhythmia monitoring - Continue Lasix 40 mg IV twice daily - Follow BMP, magnesium again this afternoon and daily in the morning-he has longstanding muscle cramps related to cholesterol medications-Will monitor electrolytes closely - Repeat echo to ensure EF still preserved - Follow daily weights, strict I's and O's, low-sodium diet, fluid restrict to 1500 mL/day - Cardiology consultation placed - Reduce dose of Toprol-XL to 12.5 mg p.o. twice daily given bradycardia and fatigue-heart rates at home in the 40s to 50s since cardioversion - Continue supplemental O2 to keep pulse ox greater than 90% and wean off as able after diuresis #Paroxysmal atrial fibrillation on Eliquis-had rapid A-fib x 1 month, now s/p cardioversion on 06/06 and remains in sinus bradycardia. - Reduce dose of Toprol-XL to 12.5 mg p.o. twice daily - Monitor on telemetry - Continue Eliquis 5 mg p.o. twice daily - Keep electrolytes replete #HANSEL-severe, newly diagnosed, has not yet received CPAP at home. Likely contributed to his recent new onset atrial fibrillation - Use CPAP while here at 8 cm H2O and titrate as needed as per respiratory therapy #CAD s/p LAD and RCA stent/HLD/elevated troponin-has history of ADAMS, no acute issues, has baseline abnormal ECG with lateral ST depressions and T wave inversions. Troponin only minimally elevated here at 21 and repeat 22 2 hours later. Likely elevated troponin secondary to myocardial demand ischemia with hypoxemia and acute heart failure - Trend serial troponin - Check echocardiogram for new wall motion abnormalities - Continue home aspirin, Praluent, Eliquis, and reduced dose of Toprol-XL #GERD-takes pantoprazole and as needed famotidine at home - Continue PPI #BPH-listed as a diagnosis but not taking medication for this - Monitor for urinary retention-none thus far #Migraine headaches/chronic muscle spasms-with a history of chronic muscle spasms related to numerous statin drugs over the years but have improved once switching to Praluent however still remain - Continue Robaxin as needed for muscle spasms, Tylenol as needed - Ensure electrolytes replete - Continue Fioricet as needed-takes rarely #B12 deficiency-no acute issues - Continue home B12 supplement DVT prophylaxis-Eliquis Disposition-admit to PCU. Discussed all care with the at the bedside at the time of admission History of Present Illness Chief Complaint: Shortness of breath Primary Care Provider: Kalpesh Bee, DO This patient is a 69-year-old male with history of CAD s/p LAD and RCA stents, paroxysmal atrial fibrillation s/p cardioversion on 06/06 on Eliquis, HTN, HANSEL about to start CPAP, GERD, BPH, migraine headaches, HLD with statin intolerance, chronic muscle spasms, and OA who presents to the ED with 2 days of worsening orthopnea, SOB, fatigue, heart rate in the 40s to 60s at home, and low oxygen levels with lying down. He had a cardioversion on 06/06 and has been in sinus bradycardia ever since. He also complains of some abdominal bloating. He was recently diagnosed with sleep apnea but has not yet received his CPAP machine. In the ED, he was found to have a mildly elevated troponin at 20, and elevated BNP in the 500s, and bilateral pleural effusions and evidence of heart failure on CXR and CT abdomen/pelvis. He was hypertensive and mildly hypoxic and was placed on 2 LNC supplemental O2. He received 1 dose of IV Lasix. He will be admitted for acute HFpEF and acute respiratory failure with hypoxemia. Allergies Allergy/AdvReac Type Severity Reaction Status Date / Time atorvastatin [From Lipitor] AdvReac Intermediate Cramping Verified 06/02/25 07:39 of the Muscles pravastatin AdvReac Intermediate Cramping Verified 06/02/25 07:39 of the Muscles simvastatin [From Zocor] AdvReac Intermediate Cramping Verified 06/02/25 07:39 of the Muscles Aopozia-NVU-BtO Reductase AdvReac Intermediate Cramping Verified 06/02/25 07:39 Inhibitor of the Muscles Home Medications Medication Instructions Recorded Confirmed Type aspirin 81 mg tablet 81 mg PO QAM 05/12/19 06/08/25 History nitroglycerin 0.4 mg sublingual 0.4 mg sublingual Q5M PRN chest 03/28/20 06/08/25 Rx tablet pain #25 tabs acetaminophen 500 mg capsule 500 mg PO QID PRN Pain 09/17/21 06/08/25 History mecobalamin (vitamin B12) 1,000 1,000 mcg PO DAILY 10/07/22 06/08/25 History mcg chewable tablet alirocumab 75 mg/mL subcutaneous 150 mg subcut Q14D 03/14/24 06/08/25 History pen injector (Praluent Pen) methocarbamol 500 mg tablet 500 mg PO TID PRN muscle spasm 04/25/25 06/08/25 Rx #270 tabs apixaban 5 mg tablet (Eliquis) 5 mg PO BID #60 tabs 05/06/25 06/08/25 Rx evnvbumuih-kcaalfrhvdbyv-gmrtelvm 1 - 2 tab PO Q4H PRN HEADACHES 05/06/25 06/08/25 History 50 mg-325 mg-40 mg tablet metoprolol succinate 50 mg 25 mg PO BID 06/02/25 06/08/25 History tablet,extended release 24 hr famotidine 20 mg tablet 20 mg PO QAM PRN GERD 06/08/25 06/08/25 History pantoprazole 20 mg tablet,delayed 20 mg PO BID 06/08/25 06/08/25 History release (Protonix) Past Med/Surg History Problem List (Updated 06/08/25 @ 10:08 by Shira Motley MD) Acute respiratory failure with hypoxia (HFpEF) heart failure with preserved ejection fraction Paroxysmal atrial fibrillation Chronic anticoagulation Nocturnal hypoxemia Sleep apnea New onset atrial fibrillation (Acute) Statin myopathy Presence of drug-eluting stent in right coronary artery Status post insertion of drug-eluting stent into left anterior descending (LAD) artery Statin intolerance Lumbar facet arthropathy Trochanteric bursitis of both hips Elevated glucose Degenerative disc disease, lumbar Antiplatelet or antithrombotic long-term use HTN (hypertension) h/o - no longer treated for GERD (gastroesophageal reflux disease) (Chronic) BPH (benign prostatic hyperplasia) Migraine headache Hyperlipidemia (Chronic) Medical History Coronary artery disease S/p stent to LAD (1999 and 2000). Last cath (2012) ADAMS to RCA. Managed with DAPT + statin. No BB due to low HR and BP. Hyperlipidemia Sleep apnea recent dx, no cpap yet Atrial fibrillation with rapid ventricular response dx 04/2025 Trochanteric bursitis of both hips Lumbar facet arthropathy HTN (hypertension) BPH (benign prostatic hyperplasia) DJD (degenerative joint disease), cervical cannot turn left to right as previous, needs to have neck support during procedure or will get a migraine DJD (degenerative joint disease), lumbar Hx of migraines GERD (gastroesophageal reflux disease) Osteoarthritis Chronic neck pain PONV (postoperative nausea and vomiting) Chronic low back pain Surgical History Hx of vasectomy History of esophagogastroduodenoscopy (EGD) History of colonoscopy H/O heart artery stent No MT, x 5 (most recent 04/2020) Follows with Dr. Montoya (11/2022) H/O cardiac catheterization (~2012) No MT, multi caths, most recent 05/2024 no stents S/P inguinal hernia repair Family History Father Coronary heart disease Heart disease Mother Osteoarthritis Crohn's disease Brother Coronary heart disease Hypertension Diabetes Uncle Prostate cancer Brother Heart disease Myocardial infarction Denies family history of Ovarian cancer Breast cancer Lung cancer Colorectal cancer Social History Smoking Status: Never smoker Second Hand Exposure: No; Do You Dip or Chew Tobacco: No; Hx Alcohol Use: No Hx Substance Use: No Preferred Language: British Communication Ability: Effective Visual Impairment: Diminished Hearing Ability: Normal Family Preservation Worker Required: No Beliefs That Will Affect Care: None marital status: Current Living Situation: Spouse current occupational status: retired 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 Feels Safe at Home: Yes Childhood Exposure to Second-Hand Smoke: Yes Diet: regular caffeine: No Dental Care, Regularly: Yes Physical Activity Frequency: 3-4 Times per Week Physical Activity Frequency Comment: weights and arobic Seatbelt Use: always Sunscreen Use: Yes Assistive Devices: Glasses Review of Systems Review of Systems: All systems reviewed & are unremarkable except as noted in HPI & below Physical Exam Constitutional: WD/WN, vitals as above Eyes: + anicteric sclerae Neck: trachea midline, no thyromegaly Respiratory: normal respiratory effort; no cough Auscultation: + diminished lung sounds (At the bases bilaterally); no crackles, no rhonchi and no wheezes Cardiovascular: Rate/Rhythm: regular rhythm and + bradycardic Heart Sounds: no murmur Extremities: + edema (1+ pitting edema to the mid leg bilaterally) Chest (Breasts): Chest: normal inspection of chest Gastrointestinal (Abdomen): Inspection/Auscultation: abdomen normal to inspection, + abdomen distended (Mild) and normal bowel sounds Percussion/ Palpation: + abdomen tender (Mild in epigastric region without guarding) and abdomen soft; no guarding Musculoskeletal: Extremities: extremities normal to inspection; no cyanosis and no clubbing Skin: no rashes, warm and dry Neurologic: moves all extremities and awake; no focal motor deficits Psychiatric: A+Ox3, euthymic affect Results & Data Results & Data Vital Signs (Past 12 Hours) Vital Signs Temp Pulse Pulse Resp BP BP Pulse Ox 06/08/25 09:48 60 25 H 160/103 H 97 06/08/25 09:20 88 L 06/08/25 08:21 61 17 91 06/08/25 08:00 06/08/25 07:55 58 L 21 153/93 H 91 06/08/25 07:52 64 06/08/25 07:32 36.0 C L 59 L 20 149/97 H 94 O2 Del Method O2 Flow Rate 06/08/25 09:48 Nasal Cannula 2 06/08/25 09:20 Nasal Cannula 0 06/08/25 08:21 Room Air 06/08/25 08:00 Room Air 06/08/25 07:55 Room Air 06/08/25 07:52 06/08/25 07:32 Room Air Laboratory Results CBC, CMP, magnesium, troponin, BNP, VBG, UA reviewed Diagnostic Findings CXR and CT A/P images personally reviewed by me and agree with the following reports: Abdomen/Pelvis CT 06/08/25 08:[address] WITH IV CONTRAST CT DOSE: 904.72 mGy.cm HISTORY: Generalized abdominal pain abdominal pain, bloating, orthopnea TECHNIQUE: Multiaxial CT images of the abdomen and pelvis were performed following the IV administration of 94 cc of Optiray, A dose lowering technique was utilized adhering to the principles of ALARA. COMPARISON STUDY: CT chest dated 05/05/25 FINDINGS: Extensive coronary artery calcifications. Moderate layering pleural effusions with dependent bibasilar consolidation. Intralobular septal thickening. No pneumatosis or pneumoperitoneum. Unremarkable spleen, pancreas, gallbladder and adrenal glands. Mild heterogeneity of the liver. Patent portal vein. Small renal sinus cysts of the left kidney which is otherwise normal in appearance. Atrophic right kidney measures 6.4 cm in length with areas of multifocal cortical scarring. Thick-walled cystic focus within the superior pole right kidney measuring up to 2.5 cm suggestive of a probable calyceal diverticulum. Nonobstructing calculi in the right kidney measure up to 5 mm. No ureteral calculi or hydronephrosis. Urinary bladder wall thickening with partial distention likely representing chronic outlet obstruction. Mild prostamegaly. Pr ior bilateral inguinal hernia repair. Atherosclerosis of the aorta. No lymphadenopathy. No bowel obstruction or bowel wall thickening. There is trace abdominal pelvic ascites. Normal appendix. Small fat filled umbilical hernia. No acute fracture. IMPRESSION: 1. Cardiomegaly with fluid overload manifested by interstitial pulmonary edema, moderate pleural effusions with trace ascites. 2. Nonobstructing right nephrolithiasis. 3. No ureteral calculi or hydronephrosis. 4. Atrophic right kidney with cortical scarring. 5. No bowel obstruction or bowel wall thickening. ACT 112: Negative or not required by law. The above report was generated using voice recognition software. It may contain grammatical, syntax or spelling errors. Electronically signed by: Rafi Soler M.D. 06/08/2025 9:59 AM Chest X-Ray 06/08/25 08:05 XR chest 2V PA/lateral CLINICAL HISTORY: Dyspnea COMPARISON STUDY: 05/05/2025 FINDINGS: Stable mild cardiomegaly with increased pulmonary vascular congestion. There is increased pulmonary interstitial prominence. There are small bilateral pleural effusions and mild associated lung base consolidation. No pneumothorax. IMPRESSION: Increased CHF with increased small bilateral pleural effusions. ACT 112: Negative or not required by law. Electronically signed by: Blu Silva M.D. 06/08/2025 8:48 AM ECG Additional Comments: ECG on 06/08/2025 at 7:42 AM with sinus rhythm, rate 60, PACs, ST depressions and T wave inversions in lateral leads unchanged from previous Code Status & VTE Plan Code Status Full code VTE Prophylaxis Plan VTE Prophylaxis will be ordered: Yes PG Care Time/CCT Total # of Minutes Spent Total Time Spent with Patient: Total time spent is greater than 50% in coordination of care (as documented) at patient's floor/unit and/or counseling patient: Coding Level of Care Code 32268 INT INP/OBS CARE 3/75MIN Diagnoses (HFpEF) heart failure with preserved ejection fraction I50.30 Acute respiratory failure with hypoxia J96.01 Paroxysmal atrial fibrillation I48.0 Coronary artery disease I25.10
[2025-06-08 10:19] LABS: INR 1.1 (0.9-1.1); Partial Thromboplastin Time 30 Seconds (21-31); Prothrombin Time 11.7 Seconds (9.0-12.0)
[2025-06-08] MEDS: METHOCARBAMOL 500 MG TABLET PO ONE (12:46)
[2025-06-08] MEDS ORDERED: BUTALBITAL/ACETAMIN/CAFFEINE TAB PO PRN (12:47)
[2025-06-08] MEDS ORDERED: POLYETHYLENE (MIRALAX) 17 GM PACK PO PRN (12:47)
[2025-06-08] MEDS ORDERED: NITROGLYCERIN SL 0.4 MG/TAB TAB SL PRN (12:47)
[2025-06-08] MEDS ORDERED: ONDANSETRON INJ 2 MG/ML 2 ML VIAL IV PRN (12:47)
[2025-06-08] MEDS ORDERED: MELATONIN 3 MG TAB PO PRN (12:47)
[2025-06-08] MEDS: ASPIRIN 81 MG ECTAB PO STA (13:23)
[2025-06-08] MEDS: APIXABAN 5 MG TABLET PO SCH (13:23)
[2025-06-08] MEDS: METHOCARBAMOL 500 MG TABLET PO PRN (16:55)
[2025-06-08 16:58] LABS: Anion Gap 8.0 (3-11); Blood Urea Nitrogen 17.0 mg/dl (6-23); Calcium 9.6 mg/dl (8.6-10.3); Carbon Dioxide 28.0 mmol/L (21-32); Chloride 101.0 mmol/L (98-107); Creatinine Clr Calc Pharmacy 58.5 ml/min; Glucose 109.0 mg/dl (70-99(Fasting)); Potassium 4.1 mmol/L (3.5-5.1); Sodium 137.0 mmol/L (136-145)
[2025-06-08] MEDS: FUROSEMIDE 40 MG/4 ML VIAL IV SCH (17:09)
--- NOTE | 2025-06-08 17:09 | Cardiology Consultation ---
Date of Consultation June 08, 2025 Assessment & Plan (1) (HFpEF) heart failure with preserved ejection fraction: (2) Paroxysmal atrial fibrillation: (3) Coronary artery disease: (4) H/O heart artery stent: (5) HTN (hypertension): (6) Hyperlipidemia: (7) Sleep apnea: Plan ASSESSMENT/PLAN: 1. Acute heart failure with preserved EF: He appears hypervolemic. Continue intravenous Lasix with net negative fluid balance of 1 to 2 L as a goal. We discussed the diagnosis. We discussed the importance of a low-sodium diet, less than 2000 mg daily. Recommended daily weights at home. Recommend daily weights and strict I's and O's here. Recommend heart failure program on discharge. If no contraindication, recommend initiation of SGLT2 inhibitor. He has been consuming significant amounts of sodium. 2. Paroxysmal atrial fibrillation: Remains in sinus rhythm following cardioversion on 06/06/2025. Continue anticoagulation for stroke risk reduction. Monitor CBC. Reports significant fatigue with metoprolol. Toprol has been reduced. Can continue lower dose with plans of discontinuing altogether if he does not tolerate low-dose. 3. CAD s/p prior LAD and RCA PCI: No angina. Continue aspirin 81 mg daily. He is statin intolerant. Has not tolerated beta-shirley thus far due to significant fatigue (weaning). 4. Hypertension: Blood pressure was initially elevated but improved during the afternoon. Continue current regimen. 5. Dyslipidemia: Statin intolerant but tolerating PCSK9 inhibitor. Most recent LDL was excellent. 6. Sleep apnea: His CPAP machine was scheduled to be delivered on 06/09/2025. 7. Disposition: Cardiology will continue to follow. On discharge, follow-up with heart failure program and his primary pinking sewing machine operator, Dr. Montoya. Pt was seen on 06/08/25. Due to power outage, the note was not signed until 06/09/25. Thank you for allowing me to participate in the care of your patient. Please call for any other questions or concerns. Sincerely, Curtis Vasquez M.D. History of Present Illness Reason for Consultation: CHF, recent cardioversion Requesting Physician: Shira Motley MD Attending Physician: Shira Motley MD History of Present Illness Mr. Chavez is a very pleasant 69-year-old gentleman with a history significant for CAD s/p RCA and multiple LAD PCI (1999, 2000, 2019), atrial fibrillation s/p DC CV, hypertension, dyslipidemia, and sleep apnea (CPAP pending later this week). His primary pinking sewing machine operator is Dr. Montoya. In regards to his coronary disease, he underwent LAD stents in 1999, 2000, and 2019. He was diagnosed with atrial fibrillation in April 2025 and was placed on anticoagulation therapy. He underwent DC cardioversion on 06/06/2025 which successfully converted atrial fibrillation to sinus rhythm. He was hospitalized on 2:25 days of shortness of breath. Following his cardioversion, he felt well on 06/06/2025. The following day he went to the gym and worked out for 45 minutes but felt bloated. He had no appetite. For the past 2 nights he has noted orthopnea and paroxysmal nocturnal dyspnea, sleeping very little due to his breathing issues. Breathing improved if he sat upright but he still had intermittent shortness of breath. He denies chest pain, syncope, near syncope, palpitations, edema, or bleeding such as melena, hematochezia, or hematuria. He does not maintain a low-sodium diet and enjoys canned soup, shelley, ham. Although he does not eat canned soup frequently, he did enjoy canned soup in the past day or 2. He feels fatigued on metoprolol and has not taken a dose of metoprolol since 06/07/2025 in the morning (25 mg). He was admitted for heart failure with preserved EF and was noted to be mildly hypoxic according to records. He received a dose of intravenous Lasix. He reports increase urine output since the dose of diuretic. Review of systems: As above. Family history: CAD. Social history: Denies tobacco or drug abuse. Occasional alcohol. He lives at home with his . They have 3 children. He is retired but had a [employer] company. His was present at the bedside. Allergies Allergy/AdvReac Type Severity Reaction Status Date / Time atorvastatin [From Lipitor] AdvReac Intermediate Cramping Verified 06/02/25 07:39 of the Muscles pravastatin AdvReac Intermediate Cramping Verified 06/02/25 07:39 of the Muscles simvastatin [From Zocor] AdvReac Intermediate Cramping Verified 06/02/25 07:39 of the Muscles Jqybqdu-FMQ-YqJ Reductase AdvReac Intermediate Cramping Verified 06/02/25 07:39 Inhibitor of the Muscles Home Medications Medication Instructions Recorded Confirmed Type aspirin 81 mg tablet 81 mg PO QAM 05/12/19 06/08/25 History nitroglycerin 0.4 mg sublingual 0.4 mg sublingual Q5M PRN chest 03/28/20 06/08/25 Rx tablet pain #25 tabs acetaminophen 500 mg capsule 500 mg PO QID PRN Pain 09/17/21 06/08/25 History mecobalamin (vitamin B12) 1,000 1,000 mcg PO DAILY 10/07/22 06/08/25 History mcg chewable tablet alirocumab 75 mg/mL subcutaneous 150 mg subcut Q14D 03/14/24 06/08/25 History pen injector (Praluent Pen) methocarbamol 500 mg tablet 500 mg PO TID PRN muscle spasm 04/25/25 06/08/25 Rx #270 tabs apixaban 5 mg tablet (Eliquis) 5 mg PO BID #60 tabs 05/06/25 06/08/25 Rx jzauioinfm-qhgagucgryzco-gexujmep 1 - 2 tab PO Q4H PRN HEADACHES 05/06/25 06/08/25 History 50 mg-325 mg-40 mg tablet metoprolol succinate 50 mg 25 mg PO BID 06/02/25 06/08/25 History tablet,extended release 24 hr famotidine 20 mg tablet 20 mg PO QAM PRN GERD 06/08/25 06/08/25 History pantoprazole 20 mg tablet,delayed 20 mg PO BID 06/08/25 06/08/25 History release (Protonix) Patient History Medical History Coronary artery disease S/p stent to LAD (1999 and 2000). Last cath (2012) ADAMS to RCA. Managed with DAPT + statin. No BB due to low HR and BP. Hyperlipidemia Sleep apnea recent dx, no cpap yet Atrial fibrillation with rapid ventricular response dx 04/2025 Trochanteric bursitis of both hips Lumbar facet arthropathy HTN (hypertension) BPH (benign prostatic hyperplasia) DJD (degenerative joint disease), cervical cannot turn left to right as previous, needs to have neck support during procedure or will get a migraine DJD (degenerative joint disease), lumbar Hx of migraines GERD (gastroesophageal reflux disease) Osteoarthritis Chronic neck pain PONV (postoperative nausea and vomiting) Chronic low back pain Surgical History Hx of vasectomy History of esophagogastroduodenoscopy (EGD) History of colonoscopy H/O heart artery stent No [place], x 5 (most recent 04/2020) Follows with Dr. Montoya (11/2022) H/O cardiac catheterization (~2012) No [place], multi caths, most recent 05/2024 no stents S/P inguinal hernia repair Family History Father Coronary heart disease Heart disease Mother Osteoarthritis Crohn's disease Brother Coronary heart disease Hypertension Diabetes Uncle Prostate cancer Brother Heart disease Myocardial infarction Denies family history of Ovarian cancer Breast cancer Lung cancer Colorectal cancer Social History Smoking Status: Never smoker Second Hand Exposure: No; Do You Dip or Chew Tobacco: No; Hx Alcohol Use: Yes Alcohol type: wine Alcohol Intake Frequency: 2-3 x/Week Hx Substance Use: No Preferred Language: Kittitian Communication Ability: Effective Visual Impairment: Diminished Hearing Ability: Normal Patient Transportation Driver Required: No Beliefs That Will Affect Care: None marital status: Current Living Situation: Spouse current occupational status: retired 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 Alert and oriented. HEENT: Anicteric sclera. Neck: No appreciable JVD. Mild hepatojugular reflux. No bruits. Normal carotid upstrokes bilaterally. Cardiac: Regular. Normal S1-S2. No murmurs, rubs, or gallops. Pulmonary: Clear to auscultation bilaterally without wheezes, rales, or rhonchi. Abdomen: Soft, nontender, nondistended, with normoactive bowel sounds. No bruits noted. Extremities: 2+ radial pulses bilaterally. 2+ posterior tibialis pulses bilaterally. 1+ bilateral lower extremity edema. No cyanosis. Psychiatric: Affect appears appropriate. Results & Data Vital Signs (Past 12 Hours) Vital Signs Temp Pulse Pulse Resp BP BP Pulse Ox 06/08/25 15:30 06/08/25 14:45 63 06/08/25 14:28 36.5 C 70 16 132/87 93 06/08/25 12:30 61 20 142/89 H 95 06/08/25 12:09 59 L 06/08/25 11:00 56 L 19 156/104 H 97 06/08/25 09:48 60 25 H 160/103 H 97 06/08/25 09:20 88 L 06/08/25 08:21 61 17 91 06/08/25 08:00 06/08/25 07:55 58 L 21 153/93 H 91 06/08/25 07:52 64 06/08/25 07:32 36.0 C L 59 L 20 149/97 H 94 O2 Del Method O2 Flow Rate 06/08/25 15:30 Room Air 06/08/25 14:45 06/08/25 14:28 Room Air 06/08/25 12:30 Room Air 06/08/25 12:09 06/08/25 11:00 Nasal Cannula 2 06/08/25 09:48 Nasal Cannula 2 06/08/25 09:20 Nasal Cannula 0 06/08/25 08:21 Room Air 06/08/25 08:00 Room Air 06/08/25 07:55 Room Air 06/08/25 07:52 06/08/25 07:32 Room Air Laboratory Results Laboratory Results - last 24 hr 06/08/25 06/08/25 06/08/25 07:55 08:40 08:57 WBC 8.03 RBC 4.83 Hgb 15.3 Hct 46.7 MCV 96.7 MCH 31.7 MCHC 32.8 RDW Std Deviation 46.0 RDW Coeff of Elidia 12.9 Plt Count 204 MPV 10.3 Immature Gran % (Auto) 0.2 Neut % (Auto) 72.9 Lymph % (Auto) 16.7 Riley % (Auto) 8.2 Eos % (Auto) 1.4 Baso % (Auto) 0.6 Neut # (Auto) 5.85 Lymph # (Auto) 1.34 Riley # (Auto) 0.66 H Eos # (Auto) 0.11 Baso # (Auto) 0.05 Immature Gran # (Auto) 0.02 PT Cancelled Cancelled INR Cancelled Cancelled APTT Cancelled Cancelled PTT Ratio Cancelled Cancelled VBG pH VBG pCO2 VBG pO2 VBG HCO3 VBG O2 Saturation VBG Base Excess Sodium 138 Potassium 4.5 Chloride 105 Carbon Dioxide 26 Anion Gap 7 BUN 16 Creatinine 1.15 Est Cr Clr Drug Dosing 65.6 eGFR 68.47 BUN/Creatinine Ratio 13.9 Glucose 123 H Calcium 9.6 Magnesium 2.0 Total Bilirubin 1.7 H AST 24 ALT 43 Alkaline Phosphatase 62 Troponin I High Sens 21.0 H B-Natriuretic Peptide 513 H Total Protein 7.5 Albumin 4.3 Globulin 3.2 Albumin/Globulin Ratio 1.3 Urine Color Yellow Urine Appearance Clear Urine pH 5.5 Ur Specific [place] 1.019 Urine Protein Negative Urine Glucose (UA) Negative Urine Ketones 1+ H Urine Blood Negative Urine Nitrite Negative Urine Bilirubin Negative Urine Urobilinogen Negative Ur Leukocyte Esterase Trace H Urine WBC (Auto) 0-5 Urine RBC (Auto) 0-2 U Hyaline Cast (Auto) 0-2 U Epithel Cells (Auto) 0-2 Urine Bacteria (Auto) None Seen Urine Comment 06/08/25 06/08/25 06/08/25 09:29 10:05 16:13 WBC RBC Hgb Hct MCV MCH MCHC RDW Std Deviation RDW Coeff of Elidia Plt Count MPV Immature Gran % (Auto) Neut % (Auto) Lymph % (Auto) Riley % (Auto) Eos % (Auto) Baso % (Auto) Neut # (Auto) Lymph # (Auto) Riley # (Auto) Eos # (Auto) Baso # (Auto) Immature Gran # (Auto) PT 11.7 INR 1.1 APTT 30 PTT Ratio 1.1 VBG pH VBG pCO2 VBG pO2 VBG HCO3 VBG O2 Saturation VBG Base Excess Sodium 137 Potassium 4.1 Chloride 101 Carbon Dioxide 28 Anion Gap 8 BUN 17 Creatinine 1.29 Est Cr Clr Drug Dosing 58.5 eGFR 59.65 BUN/Creatinine Ratio 13.2 Glucose 109 H Calcium 9.6 Magnesium 2.0 Total Bilirubin AST ALT Alkaline Phosphatase Troponin I High Sens 22.6 H 25.9 H B-Natriuretic Peptide Total Protein Albumin Globulin Albumin/Globulin Ratio Urine Color Urine Appearance Urine pH Ur Specific [place] Urine Protein Urine Glucose (UA) Urine Ketones Urine Blood Urine Nitrite Urine Bilirubin Urine Urobilinogen Ur Leukocyte Esterase Urine WBC (Auto) Urine RBC (Auto) U Hyaline Cast (Auto) U Epithel Cells (Auto) Urine Bacteria (Auto) Urine Comment 06/08/25 Unknown WBC RBC Hgb Hct MCV MCH MCHC RDW Std Deviation RDW Coeff of Elidia Plt Count MPV Immature Gran % (Auto) Neut % (Auto) Lymph % (Auto) Riley % (Auto) Eos % (Auto) Baso % (Auto) Neut # (Auto) Lymph # (Auto) Riley # (Auto) Eos # (Auto) Baso # (Auto) Immature Gran # (Auto) PT INR APTT PTT Ratio VBG pH 7.37 VBG pCO2 42 VBG pO2 35 VBG HCO3 24 VBG O2 Saturation < 60.0 VBG Base Excess -1.1 Sodium Potassium Chloride Carbon Dioxide Anion Gap BUN Creatinine Est Cr Clr Drug Dosing eGFR BUN/Creatinine Ratio Glucose Calcium Magnesium Total Bilirubin AST ALT Alkaline Phosphatase Troponin I High Sens B-Natriuretic Peptide Total Protein Albumin Globulin Albumin/Globulin Ratio Urine Color Urine Appearance Urine pH Ur Specific [place] Urine Protein Urine Glucose (UA) Urine Ketones Urine Blood Urine Nitrite Urine Bilirubin Urine Urobilinogen Ur Leukocyte Esterase Urine WBC (Auto) Urine RBC (Auto) U Hyaline Cast (Auto) U Epithel Cells (Auto) Urine Bacteria (Auto) Urine Comment Diagnostic Findings LIMITED ECHO 06/08/25: 1. Top normal left ventricular size with low normal systolic function. EF 50- 55%. Akinesis of inferior base and base to mid inferoseptal plummer. Hypokinesis of the basal anteroseptum. Mild concentric left ventricular hypertrophy. 2. Moderate biatrial dilation. 3. Pleural effusion. 4. Limited 2D echo. 5. Compared to prior study on 05/06/2025, pleural effusion is not present. Labs reviewed and notable for slightly elevated high-sensitivity troponin, elevated BNP, normal potassium, stable renal function, normal transaminase levels, normal recent TSH, excellent LDL, normal blood counts. Cardioversion note reviewed as summarized in HPI. Telemetry personally reviewed: Sinus rhythm. ECG personally reviewed 06/08/2025: Sinus rhythm [address]/T wave abnormality. Anterolateral ST/T wave abnormality stable compared to 06/06/2025 ECG. History and physical report reviewed. Most recent cardiology outpatient note reviewed from 05/31/2025. Chest x-ray report reviewed from 06/08/2025: Increased pulmonary interstitial prominence. Small bilateral pleural effusions. Increased pulmonary vascular congestion. CT abdomen/pelvis 06/08/2025: Cardiomegaly with fluid overload manifested by interstitial pulmonary edema per radiology. Moderate pleural effusions. Atrophic right kidney. Medications Administered Current Inpatient Medications Acetaminophen (Acetaminophen 500 Mg Tab) 500 mg PO QID PRN PRN Reason: Pain Stop: 07/08/25 12:49 Last Admin: 06/08/25 18:04 Dose: 500 mg Acetaminophen/Butalbital/Caffeine (Butalbital/Acetamin/Caffeine Tab) 2 tab PO Q4H PRN PRN Reason: HEADACHES Stop: 07/08/25 12:46 Apixaban (Apixaban 5 Mg Tablet) 5 mg PO BID VIDAL Stop: 07/08/25 12:46 Last Admin: 06/08/25 20:18 Dose: 5 mg Aspirin (Aspirin 81 Mg Ectab) 81 mg PO QAM VIDAL Stop: 07/09/25 08:59 Calcium Carbonate (Calcium Carbonate 500 Mg Chewable Tab) 500 mg PO HS VIDAL Stop: 07/08/25 19:09 Last Admin: 06/08/25 20:18 Dose: 500 mg Cyanocobalamin (Cyanocobalamin (B-12) 500 Mcg Tablet) 1,000 mcg PO DAILY VIDAL Stop: 07/09/25 08:59 Diazepam (Diazepam 5 Mg Tablet) 5 mg PO HS VIDAL Stop: 07/08/25 19:09 Last Admin: 06/08/25 20:18 Dose: 5 mg Furosemide (Furosemide 40 Mg/4 Ml Vial) 40 mg IV [id number] VIDAL Stop: 07/08/25 16:59 Last Admin: 06/08/25 17:09 Dose: 40 mg Magnesium Sulfate/Dextrose (Magnesium Sulfate / D5w) 1 gm in 100 mls @ 50 mls/hr IV Q2H VIDAL Stop: 06/09/25 01:44 Melatonin (Melatonin 3 Mg Tab) 3 mg PO HS PRN PRN Reason: Sleep Stop: 07/08/25 12:46 Methocarbamol (Methocarbamol 500 Mg Tablet) 500 mg PO TID PRN PRN Reason: muscle spasm Stop: 07/08/25 12:46 Last Admin: 06/08/25 16:55 Dose: 500 mg Metoprolol Succinate (Metoprolol Succ 50mg Ext Rel Tab) 12.5 mg PO BID VIDAL Stop: 07/08/25 20:59 Last Admin: 06/08/25 20:18 Dose: 12.5 mg Nitroglycerin (Nitroglycerin Sl 0.4 Mg/Tab Tab) 0.4 mg SL Q5M PRN PRN Reason: chest pain Stop: 07/08/25 12:46 Ondansetron HCl (Ondansetron Inj 2 Mg/Ml 2 Ml Vial) 4 mg IV Q6H PRN PRN Reason: Nausea Stop: 07/08/25 12:46 Pantoprazole Sodium (Pantoprazole 40 Mg Tab) 40 mg PO BID [facility] Stop: 07/09/25 08:59 Polyethylene Glycol (Polyethylene (Miralax) 17 Gm Pack) 17 gm PO DAILY PRN PRN Reason: Constipation Stop: 07/08/25 12:46 PG Care Time/CCT Total # of Minutes Spent Total Time Spent with Patient: Total time spent is greater than 50% in coordination of care (as documented) at patient's floor/unit and/or counseling patient: Coding Level of Care Code 34613 INT INP/OBS CARE 3MIN Diagnoses (HFpEF) heart failure with preserved ejection fraction I50.30 Paroxysmal atrial fibrillation I48.0 Coronary artery disease I25.10 H/O heart artery stent Z95.5 HTN (hypertension) I10 Hyperlipidemia E78.5 Sleep apnea, unspecified type G47.30 Sleep apnea type: unspecified type (7) Sleep apnea Sleep apnea type: unspecified type Qualified Code(s): G47.30 - Sleep apnea, unspecified
--- NOTE | 2025-06-08 17:52 | XCELERA ---
[id number] \\[id number]
[2025-06-08] MEDS: ACETAMINOPHEN 500 MG TAB PO PRN (18:04)
[2025-06-08] MEDS: METOPROLOL SUCC 50MG EXT REL TAB PO SCH (20:18)
[2025-06-08] MEDS: CALCIUM CARBONATE 500 MG CHEWABLE TAB PO SCH (20:18)
[2025-06-08 23:08] LABS: Anion Gap 8.0 (3-11); Blood Urea Nitrogen 20.0 mg/dl (6-23); Calcium 9.2 mg/dl (8.6-10.3); Carbon Dioxide 28.0 mmol/L (21-32); Chloride 99.0 mmol/L (98-107); Creatinine Clr Calc Pharmacy 52.4 ml/min; Glucose 154.0 mg/dl (70-99(Fasting)); Magnesium 1.8 mg/dl (1.7-2.4); Potassium 3.9 mmol/L (3.5-5.1); Sodium 135.0 mmol/L (136-145)
[2025-06-08] MEDS: MAGNESIUM SULFATE / D5W 1 GM/100 ML BAG IV SCH (23:17)
[2025-06-08] MEDS: POTASSIUM CHLORIDE CRTAB 20 MEQ TABCR PO STA (23:59)
[2025-06-09 03:06] VITALS: TEMP 97.3
[2025-06-09 06:30] LABS: Hematocrit (blood only) 43.6 % (42.0-52.0); Hemoglobin 15.5 g/dl (14.0-18.0); Immature Granulocytes # (auto) 0.01 K/uL (0.01-0.20); Immature Granulocytes % (auto) 0.2 %; Mean Corpuscular Hemoglobin 33.3 pg (25.0-34.0); Mean Corpuscular Volume 93.8 fL (80.0-100.0); Platelet Count 205 K/uL (130-400); RDW Standard Deviation 43.2 fL (36.4-46.3); Red Blood Count 4.65 M/uL (4.70-6.10); White Blood Count 6.23 K/ul (4.8-10.8)
[2025-06-09 06:49] LABS: Alanine Aminotransferase 32.0 U/L (7-52); Albumin Globulin Ratio 1.3 (0.9-2); Alkaline Phosphatase 61.0 U/L (34-104); Anion Gap 7.0 (3-11); Bilirubin,Total 1.3 mg/dl (0.2-1.0); Blood Urea Nitrogen 18.0 mg/dl (6-23); Calcium 9.0 mg/dl (8.6-10.3); Carbon Dioxide 28.0 mmol/L (21-32); Chloride 101.0 mmol/L (98-107); Creatinine Clr Calc Pharmacy 62.9 ml/min; Globulin 2.9 gm/dl (2.5-4.0); Glucose 121.0 mg/dl (70-99(Fasting)); Magnesium 2.3 mg/dl (1.7-2.4); Potassium 4.3 mmol/L (3.5-5.1); Sodium 136.0 mmol/L (136-145); Total Protein 6.6 gm/dl (6.0-8.3)
[2025-06-09] MEDS: CYANOCOBALAMIN (B-12) 500 MCG TABLET PO SCH (08:00)
[2025-06-09] MEDS: ASPIRIN 81 MG ECTAB PO SCH (08:02)
[2025-06-09] MEDS: FUROSEMIDE 40 MG/4 ML VIAL IV SCH (08:03)
[2025-06-09 10:51] VITALS: BP 104/67; PULSE 52; RESP 19; O2SAT 98
--- NOTE | 2025-06-09 11:57 | Cardiology Progress Note ---
Date of Service June 09, 2025 Assessment & Plan (1) (HFpEF) heart failure with preserved ejection fraction: (2) Paroxysmal atrial fibrillation: (3) Coronary artery disease: (4) H/O heart artery stent: (5) HTN (hypertension): (6) Hyperlipidemia: (7) Sleep apnea: Plan ASSESSMENT/PLAN: 1. Acute heart failure with preserved EF: Volume status much improved. He appears euvolemic. On discharge, can use Lasix 20 mg p.o. daily. Recommend Jardiance 10 mg daily. We again discussed the importance of a low-sodium diet, less than 2000 mg daily. Recommend daily weights at home. Recommend heart failure program on discharge; referral placed. He has been consuming significant amounts of sodium at home. 2. Paroxysmal atrial fibrillation: Remains in sinus rhythm following cardioversion on 06/06/2025. Continue anticoagulation for stroke risk reduction. Monitor CBC. Reports significant fatigue with metoprolol. He is agreeable to continue lower dose for now. If he tolerates low-dose, can continue low-dose beta-shirley, especially with nonsustained VT noted on telemetry. If he does not tolerate, alternative therapies if needed, can be determined by his outpatient can dragger. 3. CAD s/p prior LAD and RCA PCI: No angina. Continue aspirin 81 mg daily. He is statin intolerant. Has not tolerated beta-shirley thus far due to significant fatigue (weaning to see if he tolerates lower dose). 4. Hypertension: Blood pressure was initially elevated but improved. Continue current regimen. 5. Dyslipidemia: Statin intolerant but tolerating PCSK9 inhibitor. Most recent LDL was excellent. 6. Sleep apnea: His CPAP machine was scheduled to be delivered on 06/09/2025. 7. Disposition: Can be discharged home from a cardiology standpoint. Patient care discussed with Dr. Motley of the primary hospitalist service. On discharge, follow-up with heart failure program and his primary can dragger, Dr. Montoya. Admission and Anticipated Discharge Date Admission Date: June 08, 2025 Subjective Patient was seen this morning. He has ambulated in the hallway and denies shortness of breath. He feels back to baseline. He feels as though he is ready for discharge. He denies orthopnea, chest pain, shortness of breath, syncope, near syncope, palpitations, edema, or bleeding. His participated via speaker phone. He was unaccompanied otherwise. Physical Exam Physical Exam: Gen.: No acute distress. Alert and oriented. HEENT: Anicteric sclera. Neck: No appreciable JVD. No hepatojugular reflux. Cardiac: Regular. Normal S1-S2. No murmurs, rubs, or gallops. Pulmonary: Clear to auscultation bilaterally without wheezes, rales, or rhonchi. Abdomen: Soft, nontender, nondistended, with normoactive bowel sounds. No bruits noted. Extremities: 2+ radial pulses bilaterally. 2+ posterior tibialis pulses bilaterally. Trace bilateral lower extremity edema. No cyanosis. Psychiatric: Affect appears appropriate. Results & Data Vital Signs (Past 12 Hours) Vital Signs Temp Pulse Resp BP Pulse Ox O2 Del Method 06/09/25 10:50 52 L 19 104/67 98 Room Air 06/09/25 03:05 36.3 C L 48 L 16 106/67 90 Room Air Intake & Output 06/07/25 06/08/25 06/09/25 06/10/25 06:59 06:59 06:59 06:59 Intake Total 200 / 200 Output Total 4250 / 4250 Balance -4050 / -4050 Weight 180 lb 5.41 oz Laboratory Results Laboratory Results - last 24 hr 06/08/25 06/08/25 06/09/25 16:13 22:26 01:09 WBC RBC Hgb Hct MCV MCH MCHC RDW Std Deviation RDW Coeff of Elidia Plt Count MPV Immature Gran % (Auto) Neut % (Auto) Lymph % (Auto) [place] % (Auto) Eos % (Auto) Baso % (Auto) Neut # (Auto) Lymph # (Auto) [place] # (Auto) Eos # (Auto) Baso # (Auto) Immature Gran # (Auto) Sodium 137 135 L Potassium 4.1 3.9 Chloride 101 99 Carbon Dioxide 28 28 Anion Gap 8 8 BUN 17 20 Creatinine 1.29 1.44 H Est Cr Clr Drug Dosing 58.5 52.4 eGFR 59.65 52.27 BUN/Creatinine Ratio 13.2 13.9 Glucose 109 H 154 H Calcium 9.6 9.2 Magnesium 2.0 1.8 Total Bilirubin AST ALT Alkaline Phosphatase Troponin I High Sens 25.9 H 35.5 H 35.4 H Total Protein Albumin Globulin Albumin/Globulin Ratio 06/09/25 05:40 WBC 6.23 RBC 4.65 L Hgb 15.5 Hct 43.6 MCV 93.8 MCH 33.3 MCHC 35.6 RDW Std Deviation 43.2 RDW Coeff of Elidia 12.5 Plt Count 205 MPV 10.5 Immature Gran % (Auto) 0.2 Neut % (Auto) 56.0 Lymph % (Auto) 26.6 [place] % (Auto) 13.6 Eos % (Auto) 3.0 Baso % (Auto) 0.6 Neut # (Auto) 3.48 Lymph # (Auto) 1.66 [place] # (Auto) 0.85 H Eos # (Auto) 0.19 Baso # (Auto) 0.04 Immature Gran # (Auto) 0.01 Sodium 136 Potassium 4.3 Chloride 101 Carbon Dioxide 28 Anion Gap 7 BUN 18 Creatinine 1.20 Est Cr Clr Drug Dosing 62.9 eGFR 65.06 BUN/Creatinine Ratio 15.0 Glucose 121 H Calcium 9.0 Magnesium 2.3 Total Bilirubin 1.3 H AST 21 ALT 32 Alkaline Phosphatase 61 Troponin I High Sens Total Protein 6.6 Albumin 3.7 Globulin 2.9 Albumin/Globulin Ratio 1.3 Diagnostic Findings Labs reviewed and notable for stable renal function, normal potassium, normal blood counts. Normal transaminase levels. Telemetry personally reviewed: Sinus rhythm with nonsustained episodes of ventricular tachycardia. Medications Administered Current Inpatient Medications Acetaminophen (Acetaminophen 500 Mg Tab) 500 mg PO QID PRN PRN Reason: Pain Stop: 07/08/25 12:49 Last Admin: 06/08/25 18:04 Dose: 500 mg Acetaminophen/Butalbital/Caffeine (Butalbital/Acetamin/Caffeine Tab) 2 tab PO Q4H PRN PRN Reason: HEADACHES Stop: 07/08/25 12:46 Apixaban (Apixaban 5 Mg Tablet) 5 mg PO BID VIDAL Stop: 07/08/25 12:46 Last Admin: 06/09/25 08:00 Dose: 5 mg Aspirin (Aspirin 81 Mg Ectab) 81 mg PO QAM VIDAL Stop: 07/09/25 08:59 Last Admin: 06/09/25 08:02 Dose: 81 mg Calcium Carbonate (Calcium Carbonate 500 Mg Chewable Tab) 500 mg PO HS VIDAL Stop: 07/08/25 19:09 Last Admin: 06/08/25 20:18 Dose: 500 mg Cyanocobalamin (Cyanocobalamin (B-12) 500 Mcg Tablet) 1,000 mcg PO DAILY VIDAL Stop: 07/09/25 08:59 Last Admin: 06/09/25 08:00 Dose: 1,000 mcg Diazepam (Diazepam 5 Mg Tablet) 5 mg PO HS PRN PRN Reason: insomnia/muscle spasms Stop: 07/08/25 20:59 Furosemide (Furosemide 40 Mg/4 Ml Vial) 20 mg IV [id number] VIDAL Stop: 07/09/25 08:59 Last Admin: 06/09/25 08:03 Dose: 20 mg Melatonin (Melatonin 3 Mg Tab) 3 mg PO HS PRN PRN Reason: Sleep Stop: 07/08/25 12:46 Methocarbamol (Methocarbamol 500 Mg Tablet) 500 mg PO TID PRN PRN Reason: muscle spasm Stop: 07/08/25 12:46 Last Admin: 06/08/25 16:55 Dose: 500 mg Metoprolol Succinate (Metoprolol Succ 50mg Ext Rel Tab) 12.5 mg PO BID VIDAL Stop: 07/08/25 20:59 Last Admin: 06/09/25 07:59 Dose: Not Given Nitroglycerin (Nitroglycerin Sl 0.4 Mg/Tab Tab) 0.4 mg SL Q5M PRN PRN Reason: chest pain Stop: 07/08/25 12:46 Ondansetron HCl (Ondansetron Inj 2 Mg/Ml 2 Ml Vial) 4 mg IV Q6H PRN PRN Reason: Nausea Stop: 07/08/25 12:46 Pantoprazole Sodium (Pantoprazole 40 Mg Tab) 40 mg PO BID VIDAL Stop: 07/09/25 08:59 Last Admin: 06/09/25 08:00 Dose: 40 mg Polyethylene Glycol (Polyethylene (Miralax) 17 Gm Pack) 17 gm PO DAILY PRN PRN Reason: Constipation Stop: 07/08/25 12:46 PG Care Time/CCT Total # of Minutes Spent Total Time Spent with Patient: Total time spent is greater than 50% in coordination of care (as documented) at patient's floor/unit and/or counseling patient: Coding Level of Care Code 38043 SUB INP/OBS CARE 3/50MIN Diagnoses (HFpEF) heart failure with preserved ejection fraction I50.30 Paroxysmal atrial fibrillation I48.0 Coronary artery disease I25.10 H/O heart artery stent Z95.5 HTN (hypertension) I10 Hyperlipidemia E78.5 Sleep apnea, unspecified type G47.30 Sleep apnea type: unspecified type (7) Sleep apnea Sleep apnea type: unspecified type Qualified Code(s): G47.30 - Sleep apnea, unspecified
--- NOTE | 2025-06-09 12:34 | Discharge Summary ---
Discharge Summary Date of Service June 09, 2025 Principal Dx & Hospital Course #1 = Principal Diagnosis (1) (HFpEF) heart failure with preserved ejection fraction: (2) Acute respiratory failure with hypoxia: (3) Paroxysmal atrial fibrillation: (4) Coronary artery disease: Plan This patient is a 69-year-old male with history of CAD s/p LAD and RCA stents, paroxysmal atrial fibrillation s/p cardioversion on 06/06 on Eliquis, HTN, HANSEL about to start CPAP, GERD, BPH, migraine headaches, HLD with statin intolerance, chronic muscle spasms, and OA who presents to the ED with 2 days of worsening orthopnea, SOB, fatigue, heart rate in the 40s to 60s at home, admitted with acute HFpEF and respiratory failure with hypoxemia. He was found to have a mildly elevated troponin at 20, and elevated BNP in the 500s, and bilateral p leural effusions and evidence of heart failure on CXR and CT abdomen/pelvis. He was hypertensive and mildly hypoxic and was placed on 2 LNC supplemental O2. #Acute HFpEF/acute respiratory failure with hypoxemia/pleural effusions-likely secondary to being in uncontrolled rapid atrial fibrillation for the last month plus has high sodium diet. He is s/p cardioversion on 06/06. BPs are elevated here on admission and now normalized after diuresis. Recent echo 04/2025 with LVEF 55-60%, mild LVH, base of septum and inferior wall dyskinetic C/W previous [place], grade 2 diastolic dysfunction. Repeat echo here similar/unchanged. He was diuresed with 2 doses of IV furosemide and had net -4 L on his ins and outs. He was weaned off oxygen and ambulating without difficulty. He did have some trouble with significant muscle spasms with fluid shifts which were now resolved at the time of discharge. Appreciate cardiology consultation and referral to CHF clinic for after discharge. -DC to home with Lasix 20 mg p.o. once daily, KCl 10 mEq p.o. once daily - Start Jardiance 10 mg p.o. daily on discharge - Follow BMP, magnesium as an outpatient with CHF clinic-of note, he has longstanding muscle cramps related to cholesterol medications -CHF education given-he will follow daily weights, follow a low-sodium diet, and fluid restrict to 1800 mL/day -Follow-up with CHF clinic - Reduced dose of Toprol-XL to 12.5 mg p.o. twice daily given bradycardia and fatigue-heart rates at home in the 40s to 50s since cardioversion #Paroxysmal atrial fibrillation on Eliquis-had rapid A-fib x 1 month, now s/p cardioversion on 06/06 and remains in sinus bradycardia. - Reduce dose of Toprol-XL to 12.5 mg p.o. twice daily due to bradycardia and fatigue - Continue Eliquis 5 mg p.o. twice daily - Keep electrolytes replete #HANSEL-severe, newly diagnosed, has not yet received CPAP at home prior to admission but did receive it on the day of discharge. Likely contributed to his recent new onset atrial fibrillation -Continue home CPAP after discharge #CAD s/p LAD and RCA stent/HLD/elevated troponin-has history of ADAMS, no acute issues, has baseline abnormal ECG with lateral ST depressions and T wave inversions. Troponin only minimally elevated here at 21 and only trended up slightly to 35 after admission. Likely elevated troponin secondary to myocardial demand ischemia with hypoxemia and acute heart failure. Echo without new wall motion abnormalities - Continue home aspirin, Praluent, Eliquis, and reduced dose of Toprol-XL #GERD-takes pantoprazole and as needed famotidine at home - Continue PPI, as needed famotidine after discharge #BPH-listed as a diagnosis but not taking medication for this - Monitor for urinary retention-none thus far #Migraine headaches/chronic muscle spasms-with a history of chronic muscle spasms related to numerous statin drugs over the years but have improved once switching to Praluent however still remain - Continue Robaxin as needed for muscle spasms, Tylenol as needed. His muscle spasms from diuresis improved with electrolyte repletion and p.o. Valium - Ensure electrolytes replete-replace magnesium and potassium - Continue Fioricet as needed-takes rarely #B12 deficiency-no acute issues - Continue home B12 supplement DVT prophylaxis-Eliquis Disposition-stable for discharge to home Notes For Next Care Provider Needs close follow-up with CHF clinic Medication Changes From Visit Added furosemide 20 mg p.o. daily Added potassium chloride 10 mEq p.o. once daily Added Jardiance 10 mg p.o. once daily Reduced metoprolol succinate to 12.5 mg p.o. twice daily Admission HPI Per Admitting Provider This patient is a 69-year-old male with history of CAD s/p LAD and RCA stents, paroxysmal atrial fibrillation s/p cardioversion on 06/06 on Eliquis, HTN, HANSEL about to start CPAP, GERD, BPH, migraine headaches, HLD with statin intolerance, chronic muscle spasms, and OA who presents to the ED with 2 days of worsening or thopnea, SOB, fatigue, heart rate in the 40s to 60s at home, and low oxygen levels with lying down. He had a cardioversion on 06/06 and has been in sinus bradycardia ever since. He also complains of some abdominal bloating. He was recently diagnosed with sleep apnea but has not yet received his CPAP machine. In the ED, he was found to have a mildly elevated troponin at 20, and elevated BNP in the 500s, and bilateral pleural effusions and evidence of heart failure on CXR and CT abdomen/pelvis. He was hypertensive and mildly hypoxic and was placed on 2 LNC supplemental O2. He received 1 dose of IV Lasix. He will be admitted for acute HFpEF and acute respiratory failure with hypoxemia. Discharge Exam Constitutional WD/WN, vitals as above Eyes + anicteric sclerae Neck trachea midline, no thyromegaly Respiratory Auscultation: lungs clear to auscultation bilaterally Cardiovascular Rate/Rhythm: regular rhythm and + bradycardic Heart Sounds: no murmur Extremities: + edema (Only trace pitting edema left leg-much improved) Chest (Breasts) Chest: normal inspection of chest Gastrointestinal (Abdomen) normal bowel sounds, soft, nontender, no hepatosplenomegaly Musculoskeletal Extremities: extremities normal to inspection; no cyanosis and no clubbing Skin no rashes, warm and dry Neurologic moves all extremities and awake; no focal motor deficits Psychiatric A+Ox3, euthymic affect Discharge Plan Discharge Items Patient Disposition: Home - Self-Care Reason For Visit: CHF, hypoxemia Discharge Diagnosis: Acute heart failure with preserved ejection fraction Acute respiratory failure with hypoxemia-resolved Nonsustained ventricular tachycardia Condition on Discharge: Good Activity: Resume your previous activity Non-emergency contact: Primary Care Provider and Vegetable Packer Call non-emergency contact if: you have any medication questions and your symptoms worsen Follow-up/Referrals: Angela Mandel PA-C [Physician Cryptologic Supervisor] - (Ms. Mandel's office will contact you with your appointment date and time in the CHF clinic.) Kalpesh Bee DO [Primary Care Provider] - (Please follow-up within 1-2 weeks) Diet: Low Sodium (2gm) Fluids: 1800ml (7 cups) Addtl Attending Provider Instructions: You were admitted with excessive fluid around your lungs and in your body due to congestive heart failure. This improved significantly with giving you a diuretic called furosemide. Please continue taking furosemide 20 mg once daily along with a potassium supplement to replace the potassium that you will urinate out with the diuretic. You also be started on a new medication called Jardiance to be taken once daily that improves heart failure. Please follow-up with Ms. Angela Mandel PA-C, at the CHF clinic as directed. It was a pleasure taking care of you! Shira Motley MD Call your Primary Care doctor if any of the following symptoms or problems start or get worse: * Shortness of breath or difficulty breathing * Wake up at night short of breath * Chest pain * Cough * Swelling of your hands, feet, or legs * More fatigued or tired with your normal activity * Palpitations - sudden fast heart beats WEIGHT * Weigh yourself every morning after using the bathroom. * Use the same scale. * Wear the same amount of clothing. * Write your weight down on a chart. * Call your Primary Care doctor if you gain more than 2-3 pounds in 1-2 days. MEDICATIONS * Use this discharge instruction sheet for medication instructions. * Take your medications at the time your doctor ordered. * Do not skip a dose of your medicines. * If you miss a dose of medicine, take it as soon as possible, but DO NOT DOUBLE A DOSE. * Read your medicine information when you get home. * Know all of the side effects of your medicine. If in doubt, ask your pharmacist * Call your Primary Care doctor's office if you have any side effects. * Be sure all of your doctors know what medicine and herbs you take (including cold, flu, and herbal medicine). Take the following with you to your follow-up doctor appointments: * Weight Chart * Medication List * List of questions Do not drink excessive alcohol, beer or wine. Congestive Heart Failure: Discharge Instructions Congestive Heart Failure ؠ Congestive Heart Failure essentially means your heart is able to have a "traffic jam" of fluid that backs up into your lungs. ؠ Fluid in lungs, blocks up breathing space making you feel short of breath. ؠ In the hospital, our job is to get the fluid off so that you are able to breathe better, and then get you back on track with medication and lifestyle adjustments to keep the traffic jam from happening again. Salt (Sodium) ؠ About 90% of people admitted to the hospital with fluid back up into the lungs get there because of too much salt in their diet. ؠ The way our kidneys work: when you take a small amount of sodium, your kidneys hold onto a small amount of water. When you take a large amount of sodium, your kidneys hold onto a large amount of water. When this happens, your blood vessels get flooded, your heart gets overfilled, and the fluid backs up into your lungs. ؠ Most people know to avoid the salt shaker, but sodium is in almost anything prepackaged/prepared, as a preservative or as a flavoring agent. Most of the people we take care of who are here from fluid getting backed up (from too much sodium) do not use a salt shaker at all. ؠ Get into the habit of looking at food labels, so you can see how much sodium is in the foods you eat. The most important number to look at is how much sodium is in each serving. But also notice the size of a serving. [employer] will frequently make a serving size so tiny that it does not look like there is much sodium per serving, but a normal person might eat 3 or 4 servings of the food and take in a lot more sodium. ؠ Keep a "budget" of how much sodium you take in in each day. Most people stay out of trouble and stay out of the hospital as long as they stay "under budget". ؠ Majority of congestive heart failure patients do well if they take less than 2000 mg of sodium a day. Because our kidneys retain water based on how much sodium they are seeing in any given moment, it is also important to stay at less than about 500 mg in any given meal. This is because even if you stayed at less than 2000 mg of sodium, but ate it all at once, your kidneys would retain fluid at a rate as though you are taking in much more sodium than you actually are. Following How You Are Doing (Wet Versus Dry) Because managing congestive heart failure is an ongoing process, it is very important to learn how to follow your signs and symptoms and track how you are doing at home. This will allow you to catch problems before they become a big deal. In general, as your health care team, we look at managing congestive heart failure chronically as a balance of being "wet" (flooded with fluid) versus being "dry" (dehydrated from treatment). Wet - signs of fluid retention that would warrant further evaluation: ؠ Check your weight daily. If your weight goes up by more than 2 pounds in 1 day, it is almost certainly fluid related. This should warrant further thought, and/or a call to your doctor ؠ Follow your breathingmost of the time, early on when fluid backs up into your lungs, you will first start to notice shortness of breath when walking, or when lying flat. If you notice either of these, this should warrant further thought, and/or a call to your doctor ؠ If you notice both an increase in weight and worsening breathing, that definitely warrants getting seen as soon as possible "Dry"while managing the disease our goal is to keep you from getting "wet"; however, the medications can sometimes cause a degree of dehydration. ؠ Most people with congestive heart failure need frequent lab work (basic metabolic panel). Generally when there has been a change in diuretic dosing (a change in the water pill) or any other major changes, lab work should be followed closely and more frequently afterwards. This is because lab work will frequently show early signs of dehydration before you start to feel bad. ؠ Frequent symptoms of being dehydrated include: feeling weak and lightheaded, having lower blood pressures, making less urine than usual, or having a very dry mouth. If you notice any of these signs/symptoms, and you are not due for lab work, it would be quite reasonable to call your doctor to see if lab work or a visit could be arranged. Heart Failure Management Checklist * Limit Salt (Sodium) Intake to 2000mg (2g) per day and 500mg (0.5g) per meal * Check weight daily (in same clothes, without shoes) every morning * Use the provided chart to enter your weight and salt intake for the day Are you too wet? * If you gained 2lb or more - make sure to take your water pill * If your breathing is not good (you are more short of breath than usual), call your doctor regardless of weight change * If you gained 2lb or more and you are short of breath, see your doctor or come to the emergency room Are you too dry? * If you feel weak or lightheaded, have lower blood pressures, make less urine than usual, or have a very dry mouth. Call your doctor Daily Weight and Salt Intake Chart Baseline Weight Total Daily Salt Intake Limit: 2000 mg (2 g) Daily Weight (lbs) Daily Salt Intake (mg) Day 1 Day 2 Day 3 Day 4 Day 5 Day 6 Day 7 Day 8 Day 9 Day 10 Day 11 Day 12 Day 13 Day 14 Day 15 Day 16 Day 17 Day 18 Day 19 Day 20 Day 21 Day 22 Day 23 Day 24 Day 25 Day 26 Day 27 Day 28 Day 29 Day 30 Pending Studies at Discharge: No Stand-Alone Forms: My [facility] Medications and DC Order Prescriptions: New metoprolol succinate 25 mg tablet extended release 24 hr 12.5 mg PO BID Qty: 30 0RF furosemide 20 mg tablet 20 mg PO QAM Qty: 30 0RF potassium chloride 10 mEq capsule, extended release 10 meq PO QAM Qty: 30 0RF magnesium 250 mg tablet 250 mg PO HS Qty: 30 0RF Rx Instructions: OTC Jardiance 10 mg tablet 10 mg PO DAILY Qty: 30 0RF Continued mecobalamin (vitamin B12) 1,000 mcg tablet,chewable 1,000 mcg PO DAILY aspirin 81 mg tablet 81 mg PO QAM nitroglycerin 0.4 mg tablet, sublingual 0.4 mg SL Q5M PRN (Reason: chest pain) Qty: 25 1RF Rx Instructions: until response; do not exceed 3 doses per episode methocarbamol 500 mg tablet 500 mg PO TID PRN (Reason: muscle spasm) Qty: 270 1RF acetaminophen 500 mg Capsule 500 mg PO QID PRN (Reason: Pain) [id number] 50-325-40 mg tablet 1 - 2 tab PO Q4H MDD 6 TABS/24 HOURS PRN (Reason: HEADACHES) Eliquis 5 mg tablet 5 mg PO BID Qty: 60 0RF Praluent Pen 75 mg/mL pen injector 150 mg subcut Q14D pantoprazole [Protonix] 20 mg Tablet,Delayed Release (Dr/Ec) 20 mg PO BID famotidine 20 mg tablet 20 mg PO QAM PRN (Reason: GERD) Discontinued metoprolol succinate 50 mg tablet extended release 24 hr 25 mg PO BID Discharge Orders: Discharge Order- CHF (Routine); Ordered 06/09/25 Ordered By: Shira Shine/Other Patient Handouts: Heart Failure Dc Admission Data Admit Date/Time: 06/08/25 10:26 Attending Provider: Shira Motley Admit Provider: Shira Motley Primary Care Provider: Kalpesh Bee Other Providers: Shira Motley; Hong Vasquez; Angela Mandel Other Interventions: Discharge Summary Assessment (RN) Last Done: 06/09/25 12:39 Hospital Stay Data Consultations 06/08/25 10:00 ED Decision to Admit Stat 06/08/25 12:10 Consult Cardiology Routine 06/09/25 05:48 [facility] CHF Program Referral Routine Diagnostic Imagining Performed 06/08/25 08:05 CT abd pelvis IV con only Stat Pending Results Patient Have Any Pending Studies at Discharge: No Discharge Instructions Given to Patient (Per Discharging Provider) You were admitted with excessive fluid around your lungs and in your body due to congestive heart failure. This improved significantly with giving you a diuretic called furosemide. Please continue taking furosemide 20 mg once daily along with a potassium supplement to replace the potassium that you will urinate out with the diuretic. You also be started on a new medication called Jardiance to be taken once daily that improves heart failure. Please follow-up with Ms. Angela Mandel PA-C, at the CHF clinic as directed. It was a pleasure taking care of you! Shira Motley MD Call your Primary Care doctor if any of the following symptoms or problems start or get worse: * Shortness of breath or difficulty breathing * Wake up at night short of breath * Chest pain * Cough * Swelling of your hands, feet, or legs * More fatigued or tired with your normal activity * Palpitations - sudden fast heart beats WEIGHT * Weigh yourself every morning after using the bathroom. * Use the same scale. * Wear the same amount of clothing. * Write your weight down on a chart. * Call your Primary Care doctor if you gain more than 2-3 pounds in 1-2 days. MEDICATIONS * Use this discharge instruction sheet for medication instructions. * Take your medications at the time your doctor ordered. * Do not skip a dose of your medicines. * If you miss a dose of medicine, take it as soon as possible, but DO NOT DOUBLE A DOSE. * Read your medicine information when you get home. * Know all of the side effects of your medicine. If in doubt, ask your pharmacist * Call your Primary Care doctor's office if you have any side effects. * Be sure all of your doctors know what medicine and herbs you take (including cold, flu, and herbal medicine). Take the following with you to your follow-up doctor appointments: * Weight Chart * Medication List * List of questions Do not drink excessive alcohol, beer or wine. Congestive Heart Failure: Discharge Instructions Congestive Heart Failure ؠ Congestive Heart Failure essentially means your heart is able to have a "traffic jam" of fluid that backs up into your lungs. ؠ Fluid in lungs, blocks up breathing space making you feel short of breath. ؠ In the hospital, our job is to get the fluid off so that you are able to breathe better, and then get you back on track with medication and lifestyle adjustments to keep the traffic jam from happening again. Salt (Sodium) ؠ About 90% of people admitted to the hospital with fluid back up into the lungs get there because of too much salt in their diet. ؠ The way our kidneys work: when you take a small amount of sodium, your kidneys hold onto a small amount of water. When you take a large amount of sodium, your kidneys hold onto a large amount of water. When this happens, your blood vessels get flooded, your heart gets overfilled, and the fluid backs up into your lungs. ؠ Most people know to avoid the salt shaker, but sodium is in almost anything prepackaged/prepared, as a preservative or as a flavoring agent. Most of the people we take care of who are here from fluid getting backed up (from too much sodium) do not use a salt shaker at all. ؠ Get into the habit of looking at food labels, so you can see how much sodium is in the foods you eat. The most important number to look at is how much sodium is in each serving. But also notice the size of a serving. [employer] will frequently make a serving size so tiny that it does not look like there is much sodium per serving, but a normal person might eat 3 or 4 servings of the food and take in a lot more sodium. ؠ Keep a "budget" of how much sodium you take in in each day. Most people stay out of trouble and stay out of the hospital as long as they stay "under budget". ؠ Majority of congestive heart failure patients do well if they take less than 2000 mg of sodium a day. Because our kidneys retain water based on how much sodium they are seeing in any given moment, it is also important to stay at less than about 500 mg in any given meal. This is because even if you stayed at less than 2000 mg of sodium, but ate it all at once, your kidneys would retain fluid at a rate as though you are taking in much more sodium than you actually are. Following How You Are Doing (Wet Versus Dry) Because managing congestive heart failure is an ongoing process, it is very important to learn how to follow your signs and symptoms and track how you are doing at home. This will allow you to catch problems before they become a big deal. In general, as your health care team, we look at managing congestive heart failure chronically as a balance of being "wet" (flooded with fluid) versus being "dry" (dehydrated from treatment). Wet - signs of fluid retention that would warrant further evaluation: ؠ Check your weight daily. If your weight goes up by more than 2 pounds in 1 day, it is almost certainly fluid related. This should warrant further thought, and/or a call to your doctor ؠ Follow your breathingmost of the time, early on when fluid backs up into your lungs, you will first start to notice shortness of breath when walking, or when lying flat. If you notice either of these, this should warrant further thought, and/or a call to your doctor ؠ If you notice both an increase in weight and worsening breathing, that definitely warrants getting seen as soon as possible "Dry"while managing the disease our goal is to keep you from getting "wet"; however, the medications can sometimes cause a degree of dehydration. ؠ Most people with congestive heart failure need frequent lab work (basic metabolic panel). Generally when there has been a change in diuretic dosing (a change in the water pill) or any other major changes, lab work should be followed closely and more frequently afterwards. This is because lab work will frequently show early signs of dehydration before you start to feel bad. ؠ Frequent symptoms of being dehydrated include: feeling weak and lightheaded, having lower blood pressures, making less urine than usual, or having a very dry mouth. If you notice any of these signs/symptoms, and you are not due for lab work, it would be quite reasonable to call your doctor to see if lab work or a visit could be arranged. Heart Failure Management Checklist * Limit Salt (Sodium) Intake to 2000mg (2g) per day and 500mg (0.5g) per meal * Check weight daily (in same clothes, without shoes) every morning * Use the provided chart to enter your weight and salt intake for the day Are you too wet? * If you gained 2lb or more - make sure to take your water pill * If your breathing is not good (you are more short of breath than usual), call your doctor regardless of weight change * If you gained 2lb or more and you are short of breath, see your doctor or come to the emergency room Are you too dry? * If you feel weak or lightheaded, have lower blood pressures, make less urine than usual, or have a very dry mouth. Call your doctor Daily Weight and Salt Intake Chart Baseline Weight Total Daily Salt Intake Limit: 2000 mg (2 g) Daily Weight (lbs) Daily Salt Intake (mg) Day 1 Day 2 Day 3 Day 4 Day 5 Day 6 Day 7 Day 8 Day 9 Day 10 Day 11 Day 12 Day 13 Day 14 Day 15 Day 16 Day 17 Day 18 Day 19 Day 20 Day 21 Day 22 Day 23 Day 24 Day 25 Day 26 Day 27 Day 28 Day 29 Day 30 Total Time Total Time Spent Total Time Spent (In Minutes): 35 minutes Total Time Includes: Examination of the Patient, Discharge Planning, Medication Reconciliation, Communication With Other Providers (Cardiology) and Other (Patient's on the speaker phone) Coding Level of Care Code 93025 INP/OBS DISCH >30 MIN Diagnoses (HFpEF) heart failure with preserved ejection fraction I50.30 Acute respiratory failure with hypoxia J96.01 Paroxysmal atrial fibrillation I48.0 Coronary artery disease I25.10
--- NOTE | 2025-06-10 06:04 | Electrocardiogram Report ---
Test Reason : Blood Pressure : */* mmHG Vent. Rate : 60 BPM Atrial Rate : 60 BPM P-R Int : 190 ms QRS Dur : 98 ms QT Int : 428 ms P-R-T Axes : 2 -12 180 degrees QTcB Int : 428 ms Sinus rhythm with Premature atrial complexes Low voltage QRS Cannot rule out Inferior infarct , age undetermined Abnormal ECG When compared with ECG of 06-Jun-2025 07:40, Premature atrial complexes are now Present Questionable change in QRS axis Nonspecific T wave abnormality has replaced inverted T waves in Inferior leads Confirmed by Hong Vasquez ([id number]) on 06/10/2025 6:04:25 AM Referred By: REFERRED SELF Confirmed By: Hong Vasquez
--- NOTE | 2025-06-10 06:08 | Electrocardiogram Report ---
Test Reason : Blood Pressure : */* mmHG Vent. Rate : 64 BPM Atrial Rate : 64 BPM P-R Int : 196 ms QRS Dur : 98 ms QT Int : 454 ms P-R-T Axes : 96 37 199 degrees QTcB Int : 468 ms Sinus rhythm with Premature atrial complexes Abnormal ECG When compared with ECG of 08-Jun-2025 07:42, Minimal criteria for Inferior infarct are no longer Present Inverted T waves have replaced nonspecific T wave abnormality in Inferior leads Confirmed by Hong Vasquez ([id number]) on 06/10/2025 6:07:56 AM Referred By: REFERRED SELF Confirmed By: Hong Vasquez
== END 2025-06-09 14:33 | disposition home or self-care (01) | DRG 291 ==
LOC: SUATTDRO → ED 07:27 → EDINP 10:26 → 2S 12:45